=== PATIENT | male | born 1965 | race Caucasian/White ===

== ENCOUNTER 2021-01-29 08:35 | Outpatient (REF) | payer OTHER, SELFPAY ==
[2021-01-29 09:33] LABS: MANUAL DIFF FLAG NO
[2021-01-29 09:37] LABS: Basophils Absolute Auto 0.1 X10*3/uL (0.0-0.2); Basophils Percent Auto 0.6 % (0-2); Eosinophils Absolute Auto 0.1 X10*3/uL (0.0-0.4); Eosinophils Percent Auto 0.6 % (0-4); Hematocrit 43.8 % (42-52); Hemoglobin 14.4 g/dl (14.0-18.0); Imm Gran Abs Auto 0.03 X10*3/uL (0.00-0.03); Imm Gran Pct Auto 0.3 % (0.0-0.4); Lymphocytes Absolute Auto 2.7 X10*3/uL (1.2-4.9); Lymphocytes Percent Auto 28.7 % (20-40); Mean Corpuscular HGB Conc 32.9 g/dl (31.0-36.0); Mean Corpuscular Hemoglobin 31.2 pg (27.0-33.0); Monocytes Absolute Auto 0.5 X10*3/uL (0.1-1.2); Monocytes Percent Auto 5.5 % (2-11); Neutrophils Absolute Auto 6.1 X10*3/uL (2.0-8.3); Neutrophils Percent Auto 64.3 % (45-73); Platelet Count 261 X10*3/uL (160-400); Red Blood Count 4.61 X10*6/uL (4.60-5.80); Red Cell Distribution Width 12.1 % (11.0-16.0); White Blood Count 9.6 X10*3/uL (4.8-10.8)
[2021-01-29 09:58] LABS: Alanine Aminotransferase 12 U/L (0-40); Albumin Level 4.4 g/dL (3.5-5.0); Alkaline Phosphatase 74 U/L (39-117); Anion Gap 12 (12-20); Aspartate Amino Transferase 19 U/L (5-37); Bilirubin Total 0.6 mg/dL (0.0-1.0); Blood Urea Nitrogen 15 mg/dL (9-16); Calcium 9.8 mg/dL (8.4-10.2); Carbon Dioxide 31 mmol/L (22-29); Chloride 101 mmol/L (96-108); Cholesterol 146 mg/dL; Estimated Glomerular Filt Rate > 60; Glucose Fasting 119 mg/dL (60-99); HDL Cholesterol 42 mg/dL; LDL Cholesterol Calculated 93 mg/dl; Potassium 4.4 mmol/L (3.3-5.1); Sodium 140 mmol/L (135-145); Total Protein 7.6 g/dL (6.5-8.0); Triglycerides 59 mg/dL
[2021-01-29 10:18] LABS: Thyroid Stimulating Hormone 0.88 uIU/mL (0.32-4.0)
== END 2021-01-29 08:36 | disposition home or self-care (01) ==
LOC: HO.LAB 08:35
PROVIDERS: PCP Internal Medicine; Visit Provider Internal Medicine
DX: Z00.00 Encounter for general adult medical examination without abnormal findings (principal); E03.9 Hypothyroidism, unspecified; E11.9 Type 2 diabetes mellitus without complications
CPT/HCPCS: 36415; 80053; 80061; 84443; 85025

== ENCOUNTER 2021-01-31 15:33 | Outpatient (REF) | payer OTHER, SELFPAY ==
--- NOTE | ~2021-01-31 | US_ITS ---
EXAMINATION: US SCROTUM CLINICAL INFORMATION: Testicular pain, unspecified. COMPARISON: None TECHNIQUE: A sonogram of the scrotum was performed assessing pendleton-scale appearance and color Doppler flow. Spectral Doppler analysis of the arterial and venous flow were performed in the testes bilaterally. FINDINGS: RIGHT: Right testicle measures 4.1 x 2.3 x 2.9 cm, volume 14.3 mL. No focal testicular parenchymal lesions are visualized. There is a testis epididymis. Spectral Doppler analysis of the arterial and venous flow is normal in the right testis. Right epididymal head is normal in size. There are 2 right epididymal head cysts measuring 4 x 2 x 4 mm and 4 x 2 x 3 mm. There is a small calcification in the epididymal head. No right varicocele is seen. There is a small hydrocele. Right epididymal Doppler flow is normal. LEFT: Left testicle measures 4.2 x 2.9 x 3.0 cm, volume 19.1 mL. No focal testicular parenchymal lesions are visualized. Spectral Doppler analysis of the arterial and venous flow is normal in the left testis. Left epididymal head is normal in size. There is a 2 x 2 x 3 mm epididymal head cyst. There is a small calcification in the tail of the epididymis. There is a small left hydrocele. No left varicocele is seen. Left epididymal Doppler flow is normal. US/US scrotum IMPRESSION: Normal-appearing testicles. Small bilateral epididymal head cysts and small bilateral hydroceles.
== END 2021-01-31 15:34 | disposition home or self-care (01) ==
LOC: HO.US 15:33
PROVIDERS: PCP Internal Medicine; Visit Provider Internal Medicine
DX: N50.819 Testicular pain, unspecified (principal)
CPT/HCPCS: 76870

== ENCOUNTER 2021-06-30 13:49 | Emergency (ER) | payer OTHER, SELFPAY ==
[2021-06-30 14:46] VITALS: BP 133/90; PULSE 72; RESP 18; TEMP 37.1; O2SAT 97; BMI 22.8
== END 2021-06-30 18:10 | disposition left against medical advice (07) ==
LOC: HO.ED 18:06
PROVIDERS: Emergency Provider Emergency Medicine; PCP Internal Medicine
DX: M25.511 Pain in right shoulder (principal); M54.2 Cervicalgia; M54.50 Low back pain, unspecified
CPT/HCPCS: 99281

== ENCOUNTER 2021-07-01 12:56 | Emergency (ER) | payer OTHER, SELFPAY ==
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
[2021-07-01 13:44] VITALS: BP 112/89; PULSE 72; RESP 18; TEMP 36.5; O2SAT 95; BMI 22.8
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
[2021-07-01 18:00] VITALS: BP 134/67; PULSE 67; RESP 16; TEMP 36.6; O2SAT 97
== END 2021-07-01 19:04 | disposition home or self-care (01) ==
PROVIDERS: Emergency Provider Emergency Medicine; PCP Internal Medicine
DX: S22.31XA Fracture of one rib, right side, initial encounter for closed fracture (principal); S13.4XXA Sprain of ligaments of cervical spine, initial encounter; S39.012A Strain of muscle, fascia and tendon of lower back, initial encounter; M54.2 Cervicalgia; V43.52XA Car driver injured in collision with other type car in traffic accident, initial encounter; Y93.9 Activity, unspecified; Y92.410 Unspecified street and highway as the place of occurrence of the external cause; Y99.9 Unspecified external cause status; Z79.899 Other long term (current) drug therapy
CPT/HCPCS: 71111; 72100; 72125; 99284

== ENCOUNTER 2022-05-20 13:56 | Outpatient (REF) | payer OTHER, SELFPAY ==
--- NOTE | ~2022-05-20 | XR_ITS ---
EXAMINATION: XR LUMBOSACRAL SPINE CLINICAL INFORMATION: Dorsalgia COMPARISON: 07/01/2021 TECHNIQUE: Three views of the lumbosacral spine. FINDINGS: Mild dextroscoliosis, unchanged. No fracture or subluxation. Vertebral body heights are maintained. Disc space narrowing at L3-L4. Small endplate osteophytes at the lower lumbar spine with facet arthropathy. The sacroiliac joints are symmetric. The visualized sacrum is intact. Normal bowel gas pattern. XR/XR lumbar spine 2-3V IMPRESSION: Mild degenerative change at the lower lumbar spine with associated scoliotic curvature. Similar appearance to prior.
== END 2022-05-20 13:57 | disposition home or self-care (01) ==
LOC: HO.XRAY 13:56
PROVIDERS: PCP Internal Medicine; Visit Provider Internal Medicine
DX: M54.9 Dorsalgia, unspecified (principal)
CPT/HCPCS: 72100

== ENCOUNTER 2022-10-04 09:47 | Emergency (ER) | payer OTHER, SELFPAY ==
--- NOTE | ~2022-10-04 | XR_ITS ---
EXAMINATION: XR RIBS, LEFT CLINICAL INFORMATION: Fall. COMPARISON: None TECHNIQUE: 3 views of the left ribs were obtained. FINDINGS: The lungs are well-expanded and clear. The heart size and pulmonary vascularity is normal. Multiple views of left ribs reveal no visible fracture or bony abnormality. The soft tissues are normal. XR/XR ribs LT min 3V w CXR1V IMPRESSION: 1. Unremarkable chest exam. 2. Unremarkable left rib exam.
[2022-10-04 09:56] VITALS: BP 188/96; PULSE 85; RESP 18; TEMP 37.2; O2SAT 100; BMI 23.5
[2022-10-04] MEDS: Ketorolac Tromethamine 30 MG/ML VIAL IM (10:53)
--- NOTE | 2022-10-04 11:53 | ED.FALL ---
HPI - Fall General Chief Complaint: Fall Stated Complaint: fall lower back pain Time Seen by Provider: 10/04/22 10:19 Source: patient Mode of arrival: ambulatory History of Present Illness HPI Narrative: 57-year-old male with no significant past medical history presenting to the ED complaining of left side pain s/p mechanical slip and fall in bathroom on 09/24. Reports slipped on urine and fell on buttock/back, denies head trauma or LOC. Denies taking anticoagulation. States pain is been persistent/worsening, worse with movement, palpation, and at night. Denies fever, chills, SOB, CP, abdominal pain, nausea/vomiting, urine incontinence/retention MD complaint: fall Onset (ago): week(s) Fall from: standing Related Data Home Medications Medication Instructions Recorded Confirmed methadone 10 mg/mL oral 115 mg PO DAILY 01/23/21 04/28/22 concentrate (Methadone Intensol) Previous Rx's Medication Instructions Recorded cyclobenzaprine 10 mg tablet 10 mg PO TID PRN muscle spasm #30 04/28/22 tabs methylprednisolone 4 mg tablets in See Rx Instructions PO PER PKG DIR 04/28/22 a dose pack (Medrol (Ronak)) #21 ea ProAir HFA 90 mcg/actuation 2 puff inhalation Q6H PRN 08/20/22 aerosol inhaler (albuterol sulfate) bronchospasm #8.5 grams acetaminophen 500 mg tablet 500 mg PO Q6H PRN fever or pain 10/04/22 (Tylenol Extra Strength) #14 tabs cyclobenzaprine 5 mg tablet 5 mg PO Q8H PRN pain (scale score 10/04/22 7-10) 5 days #14 tabs ketorolac 10 mg tablet 10 mg PO TID PRN pain 5 days #15 10/04/22 tabs lidocaine 5 % topical patch 1 patch topical DAILY PRN pain #30 10/04/22 (Lidoderm) ea Allergies Allergy/AdvReac Type Severity Reaction Status Date / Time No Known Allergies Allergy Verified 04/28/22 11:05 [No Known Allergies*] Review of Systems Review of Systems: Constitutional: No Fever, No Chills ENT/Mouth: No Ear Pain, No Nasal Congestion, No sore throat, No Rhinorrhea, No Swallowing Difficulty Cardiovascular: No Chest Pain, No SOB Respiratory: No Cough, No Sputum, No Wheezing Gastrointestinal: No Nausea, No Vomiting, No Diarrhea, No Constipation, No Abdominal pain Genitourinary: No Dysuria, No Urinary Frequency, No Hematuria, No Urinary Incontinence/retention, No Urgency, No Flank Pain Musculoskeletal: + joint pain, No Myalgias, No Joint Swelling Skin: No Skin Lesions, No rash Neuro: No Weakness, No Numbness, No Paresthesias Yes all other systems are reviewed and are negative Constitutional: Constitutional: Reports as per [facility] Past Medical History Attestation statement: The following information was validated with the patient. Medical History Skin lesion Surgical History History of inguinal hernia repair Family History Family History Father No problems noted. Mother Advanced cardiac disease Dementia in Alzheimer's disease Mental health disorder Social History Social History Housing: Homeless (Lives in a [facility]) Alcohol intake: never Patient Tobacco Use Status: Current everyday Tobacco user Tobacco use type: Cigarette Cigarette Packs Per Day: 5 Cigarettes Per Day: 5 e-Cigarette/Vaping Use: Never Used Second Hand Smoke Exposure: Yes Advance Directives: No Advance Directives Information Provided: No service: No Current occupational status: employed Physical Exam Vital Signs: Vital Signs: Last Vital Signs Temp 98.9 F 10/04/22 09:56 Pulse 56 10/04/22 12:02 Resp 14 10/04/22 12:02 BP 130/82 10/04/22 12:02 Pulse Ox 98 10/04/22 12:02 O2 Del Method 10/04/22 12:02 BMI result Body Mass Index 23.5 Const: General: cooperative, healthy appearing and no acute distress Orientation/consciousness: patient oriented x3 Limitations: no limitations HEENT: Head: Yes normal to inspection and Yes atraumatic Ears: hearing grossly normal bilaterally General nose exam: Normal external nose present Face and sinus: Yes normal facial exam Eyes: General: appearance normal, both eyes and all related structures EOM: EOMs intact bilaterally Neck: Neck: Yes normal visual inspection and Yes no meningeal signs Chest: Other: + tenderness palpation to left posterior lateral chest wall. No evidence of flail chest, no ecchymosis/erythema Chest palpation & inspection: normal inspection of the chest, no crepitus and tenderness Resp: Effort & Inspection: normal respiratory effort and no respiratory distress Auscultation: clear to auscultation bilaterally Cardio: Rate: regular rate Heart sounds: S1 normal heart sound present and S2 normal heart sound present GI: Inspection: Yes normal to inspection Palpation (GI): Soft to palpation, nontender, no guarding and not rigid : General: Yes no CVA tenderness Back/Spine/Pelvis: Other: No midline thoracic/lumbar spinous tenderness/step-off or deformity Back: no CVA tenderness Skin: Rashes: no rashes Wounds: no wounds Neuro: General: patient oriented x3, gait normal, tone normal, moves all extremities, no meningeal signs and no focal motor deficits Gait exam (Neuro): Normal gait present Extrem: General: Yes normal to inspection Course Course Course Narrative: XR ribs LT min 3V w CXR1V IMPRESSION: 1.? Unremarkable chest exam. 2.? Unremarkable left rib exam. Results discussed with patient including worrisome signs and symptoms and strict return precautions, and when to return to the emergency department. They verbalized understanding and feel safe for discharge at this time. Medications Administered Discontinued Medications Generic Name Dose Route Start Last Admin Trade Name Adelfo PRN Reason Stop Dose Admin Ketorolac Tromethamine 30 mg 10/04/22 10:48 10/04/22 10:53 Ketorolac Tromethamine 30 Mg/Ml Vial IM 10/04/22 10:49 30 mg ONCE ONE Administration Lidocaine 1 patch 10/04/22 11:57 10/04/22 12:08 Lidocaine 4 % Patch Adh..Patch TRANSDERMA 10/04/22 11:58 Not Given ONCE ONE Protocol Medical Decision Making Medical Decision Making MDM Narrative: 57-year-old male with no significant past medical history presenting to the ED complaining of left side pain s/p mechanical slip and fall in bathroom on 09/24. On exam vital signs stable, appears uncomfortable, nontoxic appearing, left posterior lateral chest wall tenderness elicited reproducing subjective complaint, no evidence of flail chest. Abdomen soft and nontender. No midline cervical/thoracic/lumbar spinous tenderness. Concern for rib fracture vs contusion. Low suspicion for intra-abdominal injury/bleeding or cord compression/cauda equina Plan: Rib series Please refer to course for remaining clinical decision making, interpretation of labs/imaging results, and discussions with consultants and/or family members. Differential Diagnosis Differential Diagnoses: The differential diagnosis associated with the presentation includes As above Radiology Impression Discussion of test interpretation with radiology: I have reviewed the radiologist's reading. Prescription Management I considered prescription management with: Pain Medication Discharge Plan Discharge Clinical Impression: Rib contusion Patient Disposition: Home, Self-Care Instructions: Rib Contusion (ED) Additional Instructions: Your x-ray does not show fractures. You likely bruised your ribs. Flexeril is a muscle relaxer, take at night as it makes you drowsy, do not drive, drink alcohol, or operate machinery while taking it Toradol as an anti-inflammatory / pain medication, take with food Lidoderm patches are numbing patches, apply to painful area In addition take Tylenol at home If symptoms persist or worsen, pain becomes unbearable, you developed urinary retention or incontinence, or weakness return to the ED Wilson radiograf?a no muestra fracturas. Probablemente te lastimaste las costillas. Flexeril es un relajante muscular, t?cristofer por la noche ya que te adormece, no conduzcas, bebas alcohol ni operes maquinaria mientras lo carola. Toradol skyler antiinflamatorio/medicamento para el dolor, t?guthrie con alimentos Los parches de Lidoderm son parches anest?sicos, se aplican en el ?juhi dolorida Adem?s connie Tylenol en casa Si los s?ntomas persisten o empeoran, el dolor se vuelve insoportable, desarroll? retenci?n urinaria o incontinencia, o debilidad, regrese al servicio de urgencias. Prescriptions: New ketorolac 10 mg tablet 10 mg PO TID PRN (Reason: pain) 5 Days Qty: 15 0RF cyclobenzaprine 5 mg tablet 5 mg PO Q8H PRN (Reason: pain (scale score 7-10)) 5 Days Qty: 14 0RF acetaminophen [Tylenol Extra Strength] 500 mg tablet 500 mg PO Q6H PRN (Reason: fever or pain) Qty: 14 0RF lidocaine [Lidoderm] 5 % adhesive patch,medicated 1 patch topical DAILY MDD remove after 12 hours PRN (Reason: pain) Qty: 30 0RF Rx Instructions: leave on most painful area for up to 12 hrs No Action albuterol sulfate [ProAir HFA] 90 mcg/actuation HFA aerosol inhaler 2 puff inhalation Q6H PRN (Reason: bronchospasm) Qty: 8.5 8RF methadone [Methadone Intensol] 10 mg/mL concentrate 115 mg PO DAILY cyclobenzaprine 10 mg tablet 10 mg PO TID PRN (Reason: muscle spasm) Qty: 30 2RF methylprednisolone [Medrol (Ronak)] 4 mg tablets,dose pack See Rx Instructions PO PER PKG DIR Qty: 21 0RF Rx Instructions: PO PER PKG DIR Referrals: Serafin Pearl MD [Primary Care Provider] - 1 week Stand Alone Forms: Work/School Release Interventions: ED Discharge Assessment Last Done: 10/04/22 12:07 Discharge Date/Time: 10/04/22 12:07 Print Language: Greenlandic
[2022-10-04 12:02] VITALS: BP 130/82; PULSE 56; RESP 14; O2SAT 98
== END 2022-10-04 12:07 | disposition home or self-care (01) ==
PROVIDERS: Emergency Provider Emergency Medicine Emergency Medical Services; PCP Internal Medicine
DX: S20.212A Contusion of left front wall of thorax, initial encounter (principal); W01.0XXA Fall on same level from slipping, tripping and stumbling without subsequent striking against object, initial encounter; F11.20 Opioid dependence, uncomplicated; F17.210 Nicotine dependence, cigarettes, uncomplicated; Y93.89 Activity, other specified; Y92.031 Bathroom in apartment as the place of occurrence of the external cause; Y99.9 Unspecified external cause status
CPT/HCPCS: 71101; 96372; 99283; 99284; J1885

== ENCOUNTER 2022-11-12 15:16 | Outpatient (REF) | payer OTHER, SELFPAY ==
--- NOTE | ~2022-11-12 | XR_ITS ---
EXAMINATION: XR lumbar spine 2-3V CLINICAL INFORMATION: Reason for Exam M54.9 - Dorsalgia, unspecified COMPARISON: Lumbar spine radiographs 05/20/2022 TECHNIQUE: 3 views of the lumbar spine FINDINGS: 5 nonrib-bearing lumbar-type vertebral bodies. Vertebral body heights are maintained. Rightward scoliosis of the lumbar spine. Anterolisthesis of L5 on S1 and retrolisthesis of L4 on L5. Mild multilevel degenerative disc disease with loss of disc space height, facet arthropathy and disc osteophyte complexes. This is worst at L5/S1. Paravertebral soft tissues are unremarkable. XR/XR lumbar spine 2-3V IMPRESSION: 1. Mild spondylosis of the lumbar spine, as above detailed. 2. Spondylolisthesis, as above detailed.
== END 2022-11-12 15:17 | disposition home or self-care (01) ==
LOC: HO.XRAY 15:16
PROVIDERS: PCP Internal Medicine; Visit Provider Internal Medicine
DX: M54.9 Dorsalgia, unspecified (principal)
CPT/HCPCS: 72100

== ENCOUNTER → 2023-02-13 15:11 | Outpatient (BNVA) | payer OTHER, SELFPAY | PROVIDERS: PCP Internal Medicine; Visit Provider Nurse Practitioner Family | DX: M62.830 Muscle spasm of back (principal); M43.17 Spondylolisthesis, lumbosacral region; M54.16 Radiculopathy, lumbar region; M51.36 Other intervertebral disc degeneration, lumbar region | CPT/HCPCS: 99202 ==

== ENCOUNTER 2023-05-08 14:31 | Outpatient (AMB) | payer OTHER, SELFPAY ==
--- NOTE | 2023-05-08 14:35 | MHC.PC.OV ---
Vital Signs 05/08/23 14:36 Height 5 ft 7 in Weight 147 lb 2 oz BMI 23.0 BP 120/74 Blood Pressure Location Lt brachial Position Sitting Pulse 96 Pulse Source Pulse Oximeter Pulse Oximetry (%) 98 Oxygen Delivery Method Room Air Intake Visit Reasons: [facility] 04/07-04/14 Intake Note: Patient is here for hospital discharge follow up. Patient was discharged from [facility] on 04/14/23. Child Support Specialist Required: Yes Child Support Specialist Language: Yakut Information Interpreted: non-clinical & clinical Filament Coil Winder: Present Accompanied by: Spouse Allergies No Known Allergies [No Known Allergies*] Allergy (Verified 05/08/23 14:36) Medication List - Last Reconciled 05/08/23 by Serafin Pearl MD albuterol sulfate 90 mcg/actuation (Ventolin HFA) 2 puffs PO QID PRN cyclobenzaprine 10 mg PO BEDTIME PRN 30 days gabapentin 300 mg PO BEDTIME PRN 30 days methadone (Methadone Intensol) 115 mg PO DAILY naproxen (Naprosyn) 500 mg PO BID PRN Tobacco use date assessed: 05/08/23 Dental Screening Dental Screen Date: 05/08/23 Did you have a dental visit in the last 12 months?: Yes Did you have a dental problem in the last 6 months where you did not have access to dental care?: No Was dental information given to patient?: Patient has dentist HPI [facility] 04/07-04/14 HPI Details admitted with bsack pain; [place] [facility] [place] appt with pain management; on methadone for substance abuse [facility] Medical History Skin lesion Surgical History History of inguinal hernia repair Family History Father No problems noted. Mother Advanced cardiac disease Dementia in Alzheimer's disease Mental health disorder Social History Housing: Homeless (Lives in a half-way) Alcohol intake: never Patient Tobacco Use Status: Current everyday Tobacco user Tobacco use type: Cigarette Cigarettes Per Day: 5 e-Cigarette/Vaping Use: Never Used Second Hand Smoke Exposure: Yes Substance Use Type: Heroin service: No Current occupational status: employed Cognitive needs: No Hearing needs: No Vision needs: No Questionnaire Thrive Questionnaire Date Thrive assessed: 04/25/21 EMANUEL-7 AMB Questionnaire EMANUEL-7 Date EMANUEL - 7 assessed: 10/31/22 Source: Developed by Drs. Rambo Du, Priyanka Madden, Kapil Sandra and colleagues, with an educational lakeisha from [employer]. Review of Systems Const Denies chills, Denies headache(s) and Denies weight loss ENT Denies headache(s) Card Denies chest pain, Denies syncope, Denies irregular heart rhythm and Denies dyspnea Resp Denies chest congestion, Denies cough and Denies dyspnea GI Denies abdominal pain, Denies change in stool character, Denies nausea and Denies vomiting Musc Denies deformity and Denies joint swelling Neuro Denies syncope and Denies headache(s) Physical exam (Primary Care) Vital Signs: Last Vital Signs Pulse 96 05/08/23 14:36 BP 120/74 05/08/23 14:36 Pulse Ox 98 05/08/23 14:36 Oxygen Delivery Method Room Air 05/08/23 14:36 BMI result Body Mass Index 23.0 Tobacco/Smoking Status: Tobacco use Status Tobacco use date assessed 05/08/23 05/08/23 14:43 Patient Tobacco Use Status Current everyday Tobacco 05/08/23 14:43 Tobacco use type Cigarette 05/08/23 14:43 e-Cigarette/Vaping Use Never Used 05/08/23 14:43 Thrive Assessment: Date of Thrive Assessment Date Thrive assessed 04/25/21 05/08/23 14:43 Const General: cooperative and anxious Resp Effort & Inspection: normal respiratory effort Auscultation: clear to auscultation bilaterally Percussion: percussion normal Cardio Jugular venous distension: no JVD Rate: regular rate Rhythm: regular rhythm GI Inspection: Yes normal to inspection Assessment and Plan Assessment & Plan (1) Low back pain: Code(s): M54.50 - Low back pain, unspecified Plan: f/u with pain management Medications: Refilled naproxen (Naprosyn) 500 mg PO BID PRN 60 tabs 0RF pain albuterol sulfate 90 mcg/actuation (Ventolin HFA) 2 puffs PO QID PRN 18 ea 2RF shortness of breath or wheezing cyclobenzaprine 10 mg PO BEDTIME PRN 30 tabs 3RF for muscle spasm 30 days M43.17 - Spondylolisthesis, lumbosacral region, M51.36 - Other intervertebral disc degeneration, lumbar region, M54.16 - Radiculopathy, lumbar region, M62.830 - Muscle spasm of back Coding Level of Care Code Est Pt Level 3 (59728) Diagnoses Low back pain M54.50
[2023-05-08 14:36] VITALS: BP 120/74; PULSE 96; O2SAT 98; BMI 23.0
== END 2023-05-08 14:53 | disposition home or self-care (01) ==
PROVIDERS: PCP Internal Medicine; Visit Provider Internal Medicine
DX: M54.50 Low back pain, unspecified (principal)
CPT/HCPCS: 99213

== ENCOUNTER 2023-05-19 13:11 | Outpatient (AMB) | payer OTHER, SELFPAY ==
--- NOTE | 2023-05-19 13:20 | A.OFFVIS_ITS ---
Intake Vital Signs 05/19/23 13:24 Height 5 ft 7 in Weight 141 lb 2 oz BMI 22.1 BP 135/74 Blood Pressure Location Rt brachial Position Sitting Pulse 82 Pulse Source Pulse Oximeter Pulse Oximetry (%) 96 Oxygen Delivery Method Room Air Intake Visit Reasons: Follow Up/Low Back Pain Intake Note: Pain today 01/05 License Issuer Required: No Accompanied by: Unknown Allergies No Known Allergies [No Known Allergies*] Allergy (Verified 05/19/23 13:25) HPI HPI Comments History of Present Illness Details Patient presents today for follow up for worsening low back pain and right sided radiculopathy. He was initially seen in our office in January with pending lumbar spine MRI order which was not completed at that time. Patient reports he [place] [facility] [place] for severe back pain, right leg pain and weakness, lumbar radiculopathy and opioid dependence. 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 He was di scharged home on 04/14/2023 this home PT. During his hospitalization, he underwent lumbar spine MRI with concern for discitis, osteomyelitis however clinically seemed unlikely [place] [facility] [place]. Patient does have medical history of IV drug use who is also on methadone, tobacco use, and hepatitis-C. He reports partial pain alleviation of his gabapentin, ibuprofen in short script of oxycodone. He continues to experience right leg pain and weakness with walking or bending. We will proceed his neurosurgical evaluation. Denies any fever, weight loss, abdominal or groin pain, bladder or bowel incontinence or saddle anesthesia. PRIOR: Patient is a pleasant 57 years old male presents today lower back that has been worsening since status post mechanical slip and fall in bathroom on 09/24. Patient was [place] [facility] [place] for left sided rib contusion with normal imaging. He reports falling on his buttock and back but denies hitting his head or loss of consciousness. 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 His back is axial, spreads across lower back and into right buttock with radiation in to right lower extremity posteriorly. Reports conservative treatments as noted below were minimally effective. He has not done physical therapy and denies any previous injections or back surgeries. Pain affects his daily functioning, ADLs, sleep, mobility and quality of life. He is on methadone maintaince program. Patient is interested to undergo interventional treatments to alleviate his right sided sciatica pain. Denies any fever, abdominal or groin pain, chest and abdominal wall pain, bladder or bowel incontinence or saddle anesthesia. Ambulates with slow antalgic gait without assisting devices. Onset 09/24/22 Location Low back pain radiates to right buttock and RLE posterioly Duration Chronic back pain but worsened since fall on 09/24/22 Characteristics of symptom or complaint Aching, stabbing, sharp, tingling, shooting, tiring, exhausting, cramping Aggravating or associated factors Walking, prolonged sitting, standing, changing positions, bending down Relieving factors Methadone, Naprosyn, cyclobenzaprine, ketorolac, lidocaine, Medrol Treatment Home exercise program: stretching exercises and rides bicycle [facility] Medical History Skin lesion Surgical History History of inguinal hernia repair Family History Father No problems noted. Mother Advanced cardiac disease Dementia in Alzheimer's disease Mental health disorder Social History Housing: Homeless (Lives in a halfway) Alcohol intake: never Patient Tobacco Use Status: Current everyday Tobacco user Tobacco use type: Cigarette Cigarettes Per Day: 5 e-Cigarette/Vaping Use: Never Used Second Hand Smoke Exposure: Yes Substance Use Type: Heroin service: No Current occupational status: employed Cognitive needs: No Hearing needs: No Vision needs: No Review of Systems Const All systems reviewed & are unremarkable except as noted in HPI and below Physical Exam Vital Signs: Last Vital Signs Pulse 82 05/19/23 13:24 BP 135/74 05/19/23 13:24 Pulse Ox 96 05/19/23 13:24 Oxygen Delivery Method Room Air 05/19/23 13:24 BMI result Body Mass Index 22.1 General: Appears afebrile. Alert and oriented. Mood and affect appropriate. Follows and participates in conversation appropriately. Respiratory effort is unlabored. No cough. Able to transition from sit to stand unassisted. Back/Spine/Pelvis Other: Patient is able to walk and stand on heels and tip toes with difficulty on the right due to pain and weakness. Slow antalgic gait with limping. Limited lumbar ROMdue to increase pain with flexion or bending. Demonstrates 5/5 left and 4/5 right strength of quadriceps bilaterally as well as flexion/dorsiflexion of bilateral feet against resistance. 2+ pedal pulses bilaterally. Seated straight leg rise with dorsiflexion positive on the right. Diminished patellar and trace achilles reflexes bilaterally. Facet loading test positive bilaterally. Jaun sign positive. Unable to proceed with exam due to exacerbation of pain. Valsalva maneuver negative. Back: back tenderness Cervical Spine: cervical ROM normal and No Cervical spine tenderness Thoracic/Lumbar Spine: thoracic and lumbar spine normal to inspection, No Thoracic/lumbar spine scar(s), Lasegue's sign positive on the right and localized, pain with thoraco-lumbar ROM, paraspinal muscle tenderness, thoraco- lumbar ROM limited, No thoracic spinal tenderness and lumbar spinal tenderness at L4 and at L5 Pelvis: buttock tenderness on the right and sciatic notch tenderness on the right Results Reviewed Results Reviewed: Assessment & Plan Assessment & Plan (1) Muscle spasm of back: Code(s): M62.830 - Muscle spasm of back (2) Spondylolisthesis, lumbosacral region: Code(s): M43.17 - Spondylolisthesis, lumbosacral region (3) Lumbar degenerative disc disease: Code(s): M51.36 - Other intervertebral disc degeneration, lumbar region (4) Lumbar radiculopathy, right: Code(s): M54.16 - Radiculopathy, lumbar region (5) Neuroforaminal stenosis of lumbosacral spine: Code(s): M48.07 - Spinal stenosis, lumbosacral region Plan Lumbar spine MRI results reviewed with patient and his family. [place] [facility] [place] and [place] summary reviewed. Patient participated in home PT but reports increase in his back and right leg symptoms with PT or HEP. Neurosurgical Referral for spinal stenosis related pain with discogenic and facetogenic pain components. Continue gabapentin and NSAIDs with precaution and continue to monitor for any side effects. Patient on methadone 115 mg daily for prior history of opioid dependence and IV drug use. Patient is aware to call if pain worsens or if she develops any red flag symptoms to seek emergency care. Patient denies any cauda equina syndrome symptoms at this time. All questions and concerns have been answered and patient agreed with the plan. Follow up as needed. Orders: Referrals Neurosurgery Referral M48.07 - Spinal stenosis, lumbosacral region, M54.16 - Radiculopathy, lumbar region Medications: Changed From gabapentin 300 mg PO BEDTIME 30 days PRN 30 caps 0RF pain M43.17 - Spondylolisthesis, lumbosacral region, M51.36 - Other intervertebral disc degeneration, lumbar region, M54.16 - Radiculopathy, lumbar region To gabapentin 300 mg PO TID 30 days PRN 90 caps 0RF pain M43.17 - Spondylolisthesis, lumbosacral region, M51.36 - Other intervertebral disc degeneration, lumbar region, M54.16 - Radiculopathy, lumbar region Refilled cyclobenzaprine 10 mg PO BEDTIME 30 days PRN 30 tabs 3RF for muscle spasm M43.17 - Spondylolisthesis, lumbosacral region, M51.36 - Other intervertebral disc degeneration, lumbar region, M54.16 - Radiculopathy, lumbar region, M62.830 - Muscle spasm of back Coding Level of Care Code Est Pt Level 4 (57374) Diagnoses Muscle spasm of back M62.830 Spondylolisthesis, lumbosacral region M43.17 Lumbar degenerative disc disease M51.36 Lumbar radiculopathy, right M54.16 Neuroforaminal stenosis of lumbosacral spine M48.07
[2023-05-19 13:24] VITALS: BP 135/74; PULSE 82; O2SAT 96; BMI 22.1
== END 2023-05-19 13:38 | disposition home or self-care (01) ==
PROVIDERS: PCP Internal Medicine; Visit Provider Nurse Practitioner Family
DX: M62.830 Muscle spasm of back (principal); M43.17 Spondylolisthesis, lumbosacral region; M51.36 Other intervertebral disc degeneration, lumbar region; M54.16 Radiculopathy, lumbar region; M48.07 Spinal stenosis, lumbosacral region
CPT/HCPCS: 99214

== ENCOUNTER → 2023-05-19 13:11 | Outpatient (BNVA) | payer OTHER, SELFPAY | PROVIDERS: PCP Internal Medicine; Visit Provider Nurse Practitioner Family | DX: M62.830 Muscle spasm of back (principal); M43.17 Spondylolisthesis, lumbosacral region; M51.36 Other intervertebral disc degeneration, lumbar region; M54.16 Radiculopathy, lumbar region; M48.07 Spinal stenosis, lumbosacral region | CPT/HCPCS: 99212 ==

== ENCOUNTER 2023-05-29 13:20 | Outpatient (AMB) | payer OTHER, SELFPAY ==
--- NOTE | 2023-05-29 13:37 | HO.SPINEOV ---
Intake Intake Visit Reasons: radiculopathy Intake Note: Mr. Garcia is here today c/o low back pain. MRI @ [facility]/brought disc. 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 He presents with a chief complaint of low back pain with right-sided radiation of symptoms. He states the pain radiates down the posterior aspect of his right buttocks to the backside of his knee. He reports that the inciting incident was a slip and fall in bathroom on 09/24/23 during which he landed on his buttocks. He recently was hospitalized at [facility] on 04/08/23 for severe back pain, right leg pain and weakness, lumbar radiculopathy and opioid dependence per pain management documentation. They admitted him into the hospital and gave him empiric antibiotic therapy for suspected osteomyelitis per his report. He states they are able to rule out osteomyelitis/infection and discharged him shortly thereafter. He does endorse that post hospital admission he has felt much better and has had days where he has little to no pain followed by days where he has significant pain in his posterior right leg. He reports that he previously has tried several different [id number] remedies including Tylenol, ibuprofen, ice, heat, and pain patches without resolution of symptoms. He reports that rest and lying down helps alleviate his symptoms. PMH: Asthma, Hx opioid use disorder on [facility] maintenence. Social hx: Smokes 1ppd, Hx opioid use disorder currently on Methadone 115mg. Currently homeless. Medications: Albuterol, cyclobenzaprine, gabapentin, methadone, naproxen. Allergies: NKDA. Physical exam: Sensation: Grossly intact. CN: II-XII grossly intact. Strength Testing Upper Extremities: - Deltoid 5/5 right 5/5 left - Biceps 5/5 right 5/5 left - Triceps 5/5 right 5/5 left - Wrist Ext 5/5 right 5/5 left - Wrist Flex 5/5 right 5/5 left - Hand nuclear reactor technician 5/5 right 5/5 left - Interossei 5/5 right 5/5 left Strength Testing Lower Extremities: - Hip flexion 5/5 right 5/5 left - Knee extension 5/5 right 5/5 left - Dorsiflexion 5/5 right 5/5 left - Plantar flex 5/5 right 5/5 left - EHL 5/5 right 5/5 left Reflexes: - Biceps Right - 2+ Left - 2+ - Triceps Right - 2+ Left - 2+ - Patellar Right - 2+ Left - 2+ - Achilles Right - 2+ Left - 2+ - Plantar Right - 2+ Left - 2+ (-) Baca?s sign (-) Clonus (-) Straight leg raise bilaterally Imaging review: MRI performed at [facility] in March showed some mild posterior disc bulge at the levels of L3-4, L4-5, and L5-S1, with minimal nerve root impingement. The MRI read states that there is significant right-sided L5 nerve root impingement which was difficult to verify when reviewing the MRI. There is significant artifact noted on the axial T2 at this level. No significant hyperintensity or signs of infection noted. Impression: The patient is a 57-year-old male who comes in with a chief complaint of low back pain with radiation of symptoms down the posterior right leg. He states that the pain began acutely after slipping/falling in his mother's bathroom hitting his back on the toilet back in August of last year. He reports that his symptoms were moderate to severe for the 1st few months, but have recently significantly lessened. His clinical history is most likely correlated with an acute disc herniation back in August of last year, which has began to resorb. This would explain the significant symptomology early on, with the radicular pain, and also would support the resolution of symptoms the disc begins resorb. Because he is able to accomplish his ADLs, ambulates well, has no strength limitations, and has days where he has little symptoms at all per his report I would suggest that he continue to utilize conservative therapies at this time. He asked if he is eligible for physical therapy, and we told him that he is. This would also be a beneficial adjunct to what he is currently receiving and I would strongly suggest this to pain management, but will leave it up to them to decide if they would like to order it or not based on what treatments he is already undergoing. Thank you for allowing us to care for your patient. The total time spent with this visit with this patient was 45 minutes reviewing history, physical exam, MRI lumbar spine imaging review, and implementation of treatment plan or further diagnostic testing Romario Fraire MD,PhD [facility] Coding Level of Care Code New Pt Level 4 (20752) Diagnoses Lumbar radiculopathy, right M54.16
== END 2023-05-29 14:12 | disposition home or self-care (01) ==
PROVIDERS: PCP Internal Medicine; Referring Provider Nurse Practitioner Family; Visit Provider Physician Assistant
DX: M54.16 Radiculopathy, lumbar region (principal)
CPT/HCPCS: 99204

== ENCOUNTER → 2023-05-29 13:20 | Outpatient (BNVA) | payer OTHER, SELFPAY | PROVIDERS: PCP Internal Medicine; Visit Provider Physician Assistant | DX: M54.16 Radiculopathy, lumbar region (principal) | CPT/HCPCS: 99202 ==

== ENCOUNTER 2024-01-29 10:03 | Outpatient (AMB) | payer OTHER, SELFPAY ==
[2024-01-29 10:04] VITALS: BP 136/74; PULSE 78; O2SAT 97; BMI 21.9
--- NOTE | 2024-01-29 10:04 | MHC.PC.OV ---
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 Allergies No Known Allergies [No Known Allergies*] Allergy (Verified 01/29/24 10:07) Medication List - Last Reconciled 01/29/24 by Serafin Pearl MD albuterol sulfate 90 mcg/actuation (Ventolin HFA) 2 puffs PO QID PRN cyclobenzaprine 10 mg PO BEDTIME PRN 30 days gabapentin 300 mg PO TID PRN 30 days methadone (Methadone Intensol) 115 mg PO DAILY naproxen (Naprosyn) 500 mg PO BID PRN Tobacco use date assessed: 01/29/24 Dental Screening Dental Screen Date: 05/08/23 HPI Rash in body HPI Details rash on fingers consistent with hand dermatitis PFSH Medical History Skin lesion Surgical History History of inguinal hernia repair Family History Father No problems noted. Mother Advanced cardiac disease Dementia in Alzheimer's disease Mental health disorder Social History Housing: Homeless Alcohol intake: never Patient Tobacco Use Status: Current everyday Tobacco user Tobacco use type: Cigarette Cigarettes Per Day: 5 e-Cigarette/Vaping Use: Never Used Second Hand Smoke Exposure: Yes Substance Use Type: Heroin service: No Current occupational status: employed Cognitive needs: No Hearing needs: No Vision needs: No Questionnaire Thrive Questionnaire Date Thrive assessed: 04/25/21 AUDIT C Alcohol Use Questionnaire (AUDIT-C) 1. How often do you have a drink containing alcohol?: Never 3. How often do you have six or more drinks on one occasion?: Never Total Score: 0 Score Reviewed/Action Taken: Yes EMANUEL-7 AMB Questionnaire EMANUEL-7 Date EMANUEL - 7 assessed: 01/29/24 Source: Developed by Drs. Rambo Du, Priyanka Madden, Kapil Sandra and colleagues, with an educational lakeisha from [employer]. Review of Systems Const Denies chills, Denies headache(s) and Denies weight loss ENT Denies headache(s) Card Denies chest pain, Denies syncope, Denies irregular heart rhythm and Denies dyspnea Resp Denies chest congestion, Denies cough and Denies dyspnea GI Denies abdominal pain, Denies change in stool character, Denies nausea and Denies vomiting Musc Denies deformity and Denies joint swelling Neuro Denies syncope and Denies headache(s) Physical exam (Primary Care) Vital Signs: Last Vital Signs Pulse 78 01/29/24 10:04 BP 136/74 01/29/24 10:04 Pulse Ox 97 01/29/24 10:04 Oxygen Delivery Method Room Air 01/29/24 10:04 BMI result Body Mass Index 21.9 Tobacco/Smoking Status: Tobacco use Status Tobacco use date assessed 01/29/24 01/29/24 10:09 Patient Tobacco Use Status Current everyday Tobacco 01/29/24 10:09 Tobacco use type Cigarette 01/29/24 10:09 e-Cigarette/Vaping Use Never Used 01/29/24 10:09 Thrive Assessment: Date of Thrive Assessment Date Thrive assessed 04/25/21 01/29/24 10:09 Const General: cooperative, comfortable, no acute distress and alert Neck Neck: Yes no lymphadenopathy Thyroid: Thyroid normal Resp Effort & Inspection: normal respiratory effort Auscultation: clear to auscultation bilaterally Percussion: percussion normal Cardio Jugular venous distension: no JVD Palpation: normal PMI Rate: regular rate Rhythm: regular rhythm Heart sounds: S1 normal heart sound present and S2 normal heart sound present GI Inspection: Yes normal to inspection Palpation (GI): No hepatosplenomegaly present Skin Other: hand dermatitis Extrem General: Yes no clubbing, cyanosis or edema Assessment and Plan Assessment & Plan (1) Dermatitis: Code(s): L30.9 - Dermatitis, unspecified Plan: rx sent Medications: New triamcinolone acetonide 0.5% 1 appl topical TID 15 grams 3RF Coding Level of Care Code Est Pt Level 3 (81484) Diagnoses Dermatitis L30.9
== END 2024-01-29 10:19 | disposition home or self-care (01) ==
PROVIDERS: PCP Internal Medicine; Visit Provider Internal Medicine
DX: L30.9 Dermatitis, unspecified (principal)
CPT/HCPCS: 99213

== ENCOUNTER 2024-02-03 10:32 | Outpatient (AMB) | payer OTHER, SELFPAY ==
[2024-02-03 10:49] VITALS: BP 130/72; PULSE 86; O2SAT 97; BMI 22.6
--- NOTE | 2024-02-03 10:49 | MHC.PC.OV ---
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 per policy Accompanied by: Self / Same As Patient Allergies No Known Allergies [No Known Allergies*] Allergy (Verified 02/03/24 10:49) Medication List - Last Reconciled 02/04/24 by Serafin Pearl MD albuterol sulfate 90 mcg/actuation (Ventolin HFA) 2 puffs PO QID PRN cyclobenzaprine 10 mg PO BEDTIME PRN 30 days gabapentin 300 mg PO TID PRN 30 days methadone (Methadone Intensol) 115 mg PO DAILY naproxen (Naprosyn) 500 mg PO BID PRN triamcinolone acetonide 0.5% 1 appl topical TID Tobacco use date assessed: 01/29/24 Dental Screening Dental Screen Date: 02/03/24 Did you have a dental visit in the last 12 months?: Yes Did you have a dental problem in the last 6 months where you did not have access to dental care?: No Was dental information given to patient?: Patient has dentist HPI Cut Head HPI Details fell 2 days ago and sustained cut on forehead which did not require sutures; has ster-strip in place [facility] Medical History Skin lesion Surgical History History of inguinal hernia repair Family History Father No problems noted. Mother Advanced cardiac disease Dementia in Alzheimer's disease Mental health disorder Social History Housing: Homeless Alcohol intake: never Patient Tobacco Use Status: Current everyday Tobacco user Tobacco use type: Cigarette Cigarettes Per Day: 5 e-Cigarette/Vaping Use: Never Used Second Hand Smoke Exposure: Yes Substance Use Type: Heroin service: No Current occupational status: employed Cognitive needs: No Hearing needs: No Vision needs: No Questionnaire Thrive Questionnaire Date Thrive assessed: 02/03/24 I am a: Patient What is your living situation today?: I have a steady place to live Within the past 12 months, did the food you bought not last and you didn't have the money to get more?: Never true Within the past 12 months, did you worry whether your food would run out before you got money to buy more?: Never true Do you have trouble paying for medicines?: No Do you have trouble getting transportation to medical appointments?: No Do you have trouble paying your heating and electricity bill?: No Do you have trouble taking care of your child, family member or friend?: No Do you have trouble with day-to-day activities such as bathing, preparing meals, shopping, managing finances, etc.?: No Are you currently unemployed and looking for a job?: No Are you interested in more education?: No Please select the resources that you would like help with: None THRIVE Score: 0 AUDIT C Alcohol Use Questionnaire (AUDIT-C) 1. How often do you have a drink containing alcohol?: Never 3. How often do you have six or more drinks on one occasion?: Never Total Score: 0 Score Reviewed/Action Taken: Yes EMANUEL-7 AMB Questionnaire EMANUEL-7 Date EMANUEL - 7 assessed: 01/29/24 Source: Developed by Drs. Rambo Du, Priyanka Madden, Kapil Sandra and colleagues, with an educational lakeisha from [employer]. Review of Systems Const Denies chills, Denies headache(s) and Denies weight loss ENT Denies headache(s) Card Denies chest pain, Denies syncope, Denies irregular heart rhythm and Denies dyspnea Resp Denies chest congestion, Denies cough and Denies dyspnea GI Denies abdominal pain, Denies change in stool character, Denies nausea and Denies vomiting Musc Denies deformity and Denies joint swelling Neuro Denies syncope and Denies headache(s) Physical exam (Primary Care) Vital Signs: Last Vital Signs Pulse 86 02/03/24 10:49 BP 130/72 02/03/24 10:49 Pulse Ox 97 02/03/24 10:49 Oxygen Delivery Method Room Air 02/03/24 10:49 BMI result Body Mass Index 22.6 Tobacco/Smoking Status: Tobacco use Status Tobacco use date assessed 01/29/24 02/03/24 10:50 Patient Tobacco Use Status Current everyday Tobacco 02/03/24 10:50 Tobacco use type Cigarette 02/03/24 10:50 e-Cigarette/Vaping Use Never Used 02/03/24 10:50 Thrive Assessment: Date of Thrive Assessment Date Thrive assessed 02/03/24 02/03/24 10:50 Const General: cooperative, comfortable, no acute distress and alert Neck Neck: Yes no lymphadenopathy Thyroid: Thyroid normal Resp Effort & Inspection: normal respiratory effort Auscultation: clear to auscultation bilaterally Percussion: percussion normal Cardio Jugular venous distension: no JVD Palpation: normal PMI Rate: regular rate Rhythm: regular rhythm Heart sounds: S1 normal heart sound present and S2 normal heart sound present GI Inspection: Yes normal to inspection Palpation (GI): No hepatosplenomegaly present Skin Other: 2 cm cut on forehead; clean and not infected Extrem General: Yes no clubbing, cyanosis or edema Assessment and Plan Assessment & Plan (1) Cut of forehead: Code(s): S01.81XA - Laceration without foreign body of other part of head, initial encounter Plan: cont current rx Coding Level of Care Code Est Pt Level 3 (31662) Diagnoses Cut of forehead S01.81XA
== END 2024-02-03 11:06 | disposition home or self-care (01) ==
PROVIDERS: PCP Internal Medicine; Visit Provider Internal Medicine
DX: S01.81XA Laceration without foreign body of other part of head, initial encounter (principal)
CPT/HCPCS: 99213

== ENCOUNTER 2024-05-24 12:32 | Outpatient (AMB) | payer OTHER, SELFPAY ==
--- NOTE | 2024-05-24 12:44 | MHC.PC.OV ---
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 Allergies No Known Allergies [No Known Allergies*] Allergy (Verified 05/24/24 12:46) Medication List - Last Reconciled 05/25/24 by Serafin Pearl MD albuterol sulfate 90 mcg/actuation (Ventolin HFA) 2 puffs PO QID PRN cyclobenzaprine 10 mg PO BEDTIME PRN 30 days gabapentin 300 mg PO TID PRN 30 days methadone (Methadone Intensol) 115 mg PO DAILY naproxen (Naprosyn) 500 mg PO BID PRN triamcinolone acetonide 0.5% 1 appl topical TID [tub seat As directed] [walker As directed] Tobacco use date assessed: 01/29/24 Dental Screening Dental Screen Date: 02/03/24 HPI follow up HPI Details has lumbar dis disease with radiculopathy; difficulty walking due to pain PFSH Medical History Skin lesion Surgical History History of inguinal hernia repair Family History Father No problems noted. Mother Advanced cardiac disease Dementia in Alzheimer's disease Mental health disorder Social History Housing: Homeless Alcohol intake: never Patient Tobacco Use Status: Current everyday Tobacco user Tobacco use type: Cigarette Cigarettes Per Day: 5 e-Cigarette/Vaping Use: Never Used Second Hand Smoke Exposure: Yes Substance Use Type: Heroin service: No Current occupational status: employed Cognitive needs: No Hearing needs: No Vision needs: No Questionnaire PHQ-9 Over the last 2 weeks, how often have you been bothered by any of the following problems? 1. Little interest or pleasure in doing things: nearly every day 2. Feeling down, depressed, or hopeless: nearly every day 3. Trouble falling or staying asleep, or sleeping too much: nearly every day 4. Feeling tired or having little energy: nearly every day 5. Poor appetite or overeating: nearly every day 6. Feeling bad about yourself - or that you are a failure or have let yourself or your family down: nearly every day 7. Trouble concentrating on things, such as reading the newspaper or watching television: nearly every day 8. Moving or speaking so slowly that other people could have noticed. Or the opposite - being so fidgety or restless that you have been moving around a lot more than usual: nearly every day 9. Thoughts that you would be better off or of hurting yourself in some way: not at all Total score: 24 Source: Developed by Drs. Rambo Du, Priyanka Madden, Kapil Sandra and colleagues, with an educational lakeisha from [employer]. Thrive Questionnaire Date Thrive assessed: 02/03/24 AUDIT C Alcohol Use Questionnaire (AUDIT-C) 1. How often do you have a drink containing alcohol?: Never 3. How often do you have six or more drinks on one occasion?: Never Total Score: 0 Score Reviewed/Action Taken: Yes EMANUEL-7 AMB Questionnaire EMANUEL-7 Date EMANUEL - 7 assessed: 01/29/24 Source: Developed by Drs. Rambo Du, Priyanka Madden, Kapil Sandra and colleagues, with an educational lakeisha from [employer]. Review of Systems Const Denies chills, Denies headache(s) and Denies weight loss ENT Denies headache(s) Card Denies chest pain, Denies syncope, Denies irregular heart rhythm and Denies dyspnea Resp Denies chest congestion, Denies cough and Denies dyspnea GI Denies abdominal pain, Denies change in stool character, Denies nausea and Denies vomiting Musc Denies deformity and Denies joint swelling Neuro Denies syncope and Denies headache(s) Physical exam (Primary Care) Vital Signs: Last Vital Signs Pulse 90 05/24/24 12:45 BP 132/78 05/24/24 12:45 Pulse Ox 96 05/24/24 12:45 Oxygen Delivery Method Room Air 05/24/24 12:45 BMI result Body Mass Index 23.3 Tobacco/Smoking Status: Tobacco use Status Tobacco use date assessed 01/29/24 05/24/24 12:48 Patient Tobacco Use Status Current everyday Tobacco 05/24/24 12:48 Tobacco use type Cigarette 05/24/24 12:48 e-Cigarette/Vaping Use Never Used 05/24/24 12:48 PHQ-9: PHQ-9 Score PHQ-9: Total score 05/24/24 12:48 Thrive Assessment: Date of Thrive Assessment Date Thrive assessed 02/03/24 05/24/24 12:48 Const General: cooperative, comfortable, no acute distress and alert Neck Neck: Yes no lymphadenopathy Thyroid: Thyroid normal Resp Effort & Inspection: normal respiratory effort Auscultation: clear to auscultation bilaterally Percussion: percussion normal Cardio Jugular venous distension: no JVD Palpation: normal PMI Rate: regular rate Rhythm: regular rhythm Heart sounds: S1 normal heart sound present and S2 normal heart sound present GI Inspection: Yes normal to inspection Palpation (GI): No hepatosplenomegaly present Skin General skin exam: no rashes or lesions noted Extrem General: Yes no clubbing, cyanosis or edema Assessment and Plan Assessment & Plan (1) Neuroforaminal stenosis of lumbosacral spine: Code(s): M48.07 - Spinal stenosis, lumbosacral region Plan: same rx; as per neurology Medications: Refilled albuterol sulfate 90 mcg/actuation (Ventolin HFA) 2 puffs PO QID PRN 18 ea 2RF shortness of breath or wheezing Coding Level of Care Code Est Pt Level 3 (11534) Diagnoses Neuroforaminal stenosis of lumbosacral spine M48.07
[2024-05-24 12:45] VITALS: BP 132/78; PULSE 90; O2SAT 96; BMI 23.3
== END 2024-05-24 13:24 | disposition home or self-care (01) ==
PROVIDERS: PCP Internal Medicine; Visit Provider Internal Medicine
DX: M48.07 Spinal stenosis, lumbosacral region (principal)
CPT/HCPCS: 99213

== ENCOUNTER 2024-08-22 13:47 | Outpatient (AMB) | payer OTHER, SELFPAY ==
--- NOTE | 2024-08-22 13:48 | A.OFFPC_ITS ---
Vital Signs 08/22/24 13:49 Height 5 ft 7 in Weight 154 lb 2 oz BMI 24.1 BP 130/78 Blood Pressure Location Lt brachial Position Sitting Pulse 78 Pulse Source Pulse Oximeter Pulse Oximetry (%) 98 Oxygen Delivery Method Room Air Intake Visit Reasons: PE Intake Note: Patient is here today for a physical. Pt decline flu shot today. 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 Of Sustainability: Not Required per policy Accompanied by: Self / Same As Patient Allergies No Known Allergies [No Known Allergies*] Allergy (Verified 08/22/24 13:49) Medication List - Last Reconciled 08/23/24 by Serafin Pearl MD albuterol sulfate 90 mcg/actuation (Ventolin HFA) 2 puffs PO QID PRN cyclobenzaprine 10 mg PO BEDTIME PRN 30 days gabapentin 300 mg PO TID PRN 30 days methadone (Methadone Intensol) 115 mg PO DAILY naproxen (Naprosyn) 500 mg PO BID PRN triamcinolone acetonide 0.5% 1 appl topical TID [tub seat As directed] [walker As directed] Tobacco use date assessed: 08/22/24 Dental Screening Dental Screen Date: 02/03/24 HPI PE HPI Details substance abuse on methadone; wants pain pills for back pain; I declined [facility], [facility] Medical History (Updated 08/23/24 @ 08:25 by Serafin Pearl MD) Asthma Skin lesion Surgical History History of inguinal hernia repair Family History Father No problems noted. Mother Advanced cardiac disease Dementia in Alzheimer's disease Mental health disorder Social History Housing: Homeless Alcohol intake: never Patient Tobacco Use Status: Current everyday Tobacco user Tobacco use type: Cigarette Cigarette Packs Per Day: 0.5 Cigarettes Per Day: 5 e-Cigarette/Vaping Use: Never Used Second Hand Smoke Exposure: Yes Substance Use Type: Heroin service: No Current occupational status: employed Cognitive needs: Yes (Cane) Hearing needs: No Vision needs: Yes (Glasses) Questionnaire Thrive Questionnaire Date Thrive assessed: 02/03/24 Are you currently unemployed and looking for a job?: Yes EMANUEL-7 AMB Questionnaire EMANUEL-7 Date EMANUEL - 7 assessed: 01/29/24 Source: Developed by Drs. Rambo Du, Priyanka Madden, Kapil Sandra and colleagues, with an educational lakeisha from [employer]. Review of Systems Const Denies chills, Denies fatigue, Denies headache(s) and Denies weight loss Eyes Denies change in vision, Denies diplopia and Denies eye pain ENT Denies vertigo, Denies dizziness, Denies headache(s) and Denies nasal discharge Card Denies chest pain, Denies rapid heart rate and Denies dyspnea on exertion Resp Denies chest congestion, Denies cough, Denies pain with cough and Denies dyspnea on exertion GI Denies abdominal pain, Denies hematochezia and Denies change in bowel habits Musc Denies myalgias, Denies arthralgias and Denies joint swelling Skin/Breast Denies lesions and Denies unusual bruising Neuro Denies vertigo, Denies dizziness, Denies headache(s) and Denies focal weakness Endo Denies fatigue Physical exam (Primary Care) Vital Signs: Last Vital Signs Pulse 78 08/22/24 13:49 BP 130/78 08/22/24 13:49 Pulse Ox 98 08/22/24 13:49 Oxygen Delivery Method Room Air 08/22/24 13:49 BMI result Body Mass Index 24.1 Tobacco/Smoking Status: Tobacco use Status Tobacco use date assessed 08/22/24 08/22/24 13:56 Patient Tobacco Use Status Current everyday Tobacco 08/22/24 13:56 Tobacco use type Cigarette 08/22/24 13:56 e-Cigarette/Vaping Use Never Used 08/22/24 13:56 Thrive Assessment: Date of Thrive Assessment Date Thrive assessed 02/03/24 08/22/24 13:56 Const General: cooperative, healthy appearing and no acute distress Orientation/consciousness: oriented to person, oriented to place and oriented to time [facility] Head: Yes normal to inspection, Yes normocephalic and Yes atraumatic Mouth: Normal oral and palatal mucosa present and tongue normal Throat: Yes posterior oropharynx normal and Yes uvula midline Eyes General: appearance normal, both eyes and all related structures Neck Neck: Yes normal visual inspection, Yes full ROM and Yes no lymphadenopathy Thyroid: Thyroid normal Carotids: normal carotid upstroke Chest Chest palpation & inspection: normal inspection of the chest Resp Effort & Inspection: normal respiratory effort and able to speak in complete sentences Auscultation: clear to auscultation bilaterally Cardio Jugular venous distension: no JVD Palpation: normal PMI Rate: regular rate Rhythm: regular rhythm Heart sounds: S1 normal heart sound present and S2 normal heart sound present GI Inspection: Yes normal to inspection Palpation (GI): Soft to palpation and No hepatosplenomegaly present Auscultation: normal bowel sounds General: Yes no CVA tenderness Back/Spine/Pelvis Back: no CVA tenderness Skin General skin exam: no rashes or lesions noted Neuro General: oriented to person, oriented to place and oriented to time Extrem General: Yes normal to inspection and Yes full ROM Coding Level of Care Code Est Pt Prev Care 40-64y(67390) Diagnoses Physical exam Z00.00 Asthma J45.909 Assessment & Plan Assessment & Plan (1) Physical exam: Code(s): Z00.00 - Encounter for general adult medical examination without abnormal findings Category: Medical Plan: do labs (2) Asthma: Code(s): J45.909 - Unspecified asthma, uncomplicated Category: Medical Plan: stable; same rx Orders: Orders Lipid Panel 08/22/24 Z13.220 - Encounter for screening for lipoid disorders Comprehensive [place]. Panel Fast 08/22/24 Z13.9 - Encounter for screening, unspecified Thyroid Stimulating Hormone 08/22/24 Z13.29 - Encounter for screening for other suspected endocrine disorder Complete Blood Count Auto Diff 08/22/24 Z13.0 - Encounter for screening for diseases of the blood and blood-forming organs and certain disorders involving the immune mechanism Prostate Specific Antigen Scr 08/22/24 Z00.00 - Encounter for general adult medical examination without abnormal findings Medications: Refilled naproxen (Naprosyn) 500 mg PO BID PRN 60 tabs 0RF pain cyclobenzaprine 10 mg PO BEDTIME PRN 30 tabs 3RF for muscle spasm 30 days M43.17 - Spondylolisthesis, lumbosacral region, M51.36 - Other intervertebral disc degeneration, lumbar region, M54.16 - Radiculopathy, lumbar region, M62.830 - Muscle spasm of back gabapentin 300 mg PO TID PRN 90 caps 0RF pain 30 days M43.17 - Spondylolisthesis, lumbosacral region, M51.36 - Other intervertebral disc degeneration, lumbar region, M54.16 - Radiculopathy, lumbar region
[2024-08-22 13:49] VITALS: BP 130/78; PULSE 78; O2SAT 98; BMI 24.1
== END 2024-08-22 14:06 | disposition home or self-care (01) ==
PROVIDERS: PCP Internal Medicine; Visit Provider Internal Medicine
DX: Z00.00 Encounter for general adult medical examination without abnormal findings (principal); J45.909 Unspecified asthma, uncomplicated

== ENCOUNTER → 2024-08-22 13:47 | Outpatient (BNVA) | payer OTHER, SELFPAY | PROVIDERS: PCP Internal Medicine; Visit Provider Internal Medicine | DX: Z00.00 Encounter for general adult medical examination without abnormal findings (principal); J45.909 Unspecified asthma, uncomplicated; Z79.899 Other long term (current) drug therapy | CPT/HCPCS: 99396 ==

== ENCOUNTER 2024-12-09 09:45 | Outpatient (AMB) | payer OTHER, SELFPAY ==
--- NOTE | 2024-12-09 09:47 | MHC.PC.OV ---
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 Accompanied by: Self / Same As Patient Allergies No Known Allergies [No Known Allergies*] Allergy (Verified 12/09/24 09:52) Medication List - Last Reconciled 12/12/24 by Serafin Pearl MD albuterol sulfate 90 mcg/actuation (Ventolin HFA) 2 puffs PO QID PRN cyclobenzaprine 10 mg PO BEDTIME PRN 30 days gabapentin 300 mg PO TID PRN 30 days methadone (Methadone Intensol) 115 mg PO DAILY naproxen (Naprosyn) 500 mg PO BID PRN triamcinolone acetonide 0.5% 1 appl topical TID [tub seat As directed] [walker As directed] Tobacco use date assessed: 12/09/24 Dental Screening Dental Screen Date: 12/09/24 Did you have a dental visit in the last 12 months?: No Did you have a dental problem in the last 6 months where you did not have access to dental care?: No Was dental information given to patient?: No HPI Lump on Elbow HPI Details asthma stable on rx; goes to methadone clinic [facility] Medical History (Updated 08/23/24 @ 08:25 by Serafin Pearl MD) Asthma Skin lesion Surgical History History of inguinal hernia repair Family History Father No problems noted. Mother Advanced cardiac disease Dementia in Alzheimer's disease Mental health disorder Social History Housing: Homeless Alcohol intake: never Patient Tobacco Use Status: Current everyday Tobacco user Tobacco use type: Cigarette Cigarette Packs Per Day: 0.5 Cigarettes Per Day: 5 e-Cigarette/Vaping Use: Never Used Second Hand Smoke Exposure: Yes Substance Use Type: Heroin service: No Current occupational status: employed Cognitive needs: Yes (Cane) Hearing needs: No Vision needs: Yes (Glasses) Questionnaire PHQ-9 Over the last 2 weeks, how often have you been bothered by any of the following problems? 1. Little interest or pleasure in doing things: several days 2. Feeling down, depressed, or hopeless: several days 3. Trouble falling or staying asleep, or sleeping too much: not at all 4. Feeling tired or having little energy: not at all 5. Poor appetite or overeating: not at all 6. Feeling bad about yourself - or that you are a failure or have let yourself or your family down: not at all 7. Trouble concentrating on things, such as reading the newspaper or watching television: several days 8. Moving or speaking so slowly that other people could have noticed. Or the opposite - being so fidgety or restless that you have been moving around a lot more than usual: several days 9. Thoughts that you would be better off or of hurting yourself in some way: not at all Total score: 4 Source: Developed by Drs. Rambo Du, Priyanka Madden, Kapil Sandra and colleagues, with an educational lakeisha from [employer]. Thrive Questionnaire Date Thrive assessed: 12/09/24 I am a: Patient What is your living situation today?: I have a steady place to live Within the past 12 months, did the food you bought not last and you didn't have the money to get more?: Never true Within the past 12 months, did you worry whether your food would run out before you got money to buy more?: Never true Do you have trouble paying for medicines?: No Do you have trouble getting transportation to medical appointments?: No Do you have trouble paying your heating and electricity bill?: No Do you have trouble taking care of your child, family member or friend?: No Do you have trouble with day-to-day activities such as bathing, preparing meals, shopping, managing finances, etc.?: No Are you currently unemployed and looking for a job?: No Are you interested in more education?: No Currently or been in a relationship where the following occur: No concerns reported THRIVE Score: 0 AUDIT C Alcohol Use Questionnaire (AUDIT-C) 1. How often do you have a drink containing alcohol?: Never 3. How often do you have six or more drinks on one occasion?: Never Total Score: 0 Score Reviewed/Action Taken: Yes EMANUEL-7 AMB Questionnaire EMANUEL-7 Date EMANUEL - 7 assessed: 12/09/24 Feeling nervous, anxious, or on edge: 1 = Several days Not being able to stop or control worryin = Several days Worrying too much about different things: 1 = Several days Trouble relaxin = Not at all Being so restless that it is hard to sit still: 2 = More than half the days Becoming easily annoyed or irritable: 0 = Not at all Feeling afraid as if something awful might happen: 0 = Not at all Total EMANUEL-7 score (0-4 normal; 5-9 mild; 10-14 moderate; 15-21 severe): 5 Source: Developed by Drs. Rambo Du, Priyanka Madden, Kapil Sandra and colleagues, with an educational lakeisha from [employer]. Review of Systems Const Denies chills, Denies headache(s) and Denies weight loss ENT Denies headache(s) Card Denies chest pain, Denies syncope, Denies irregular heart rhythm and Denies dyspnea Resp Denies chest congestion, Denies cough and Denies dyspnea GI Denies abdominal pain, Denies change in stool character, Denies nausea and Denies vomiting Musc Denies deformity and Denies joint swelling Neuro Denies syncope and Denies headache(s) Physical exam (Primary Care) Vital Signs: Last Vital Signs Temp 97.5 F 12/09/24 09:52 Pulse 84 12/09/24 09:52 BP 130/78 12/09/24 09:52 Pulse Ox 97 12/09/24 09:52 Oxygen Delivery Method Room Air 12/09/24 09:52 BMI result Body Mass Index 25.9 Tobacco/Smoking Status: Tobacco use Status Tobacco use date assessed 12/09/24 12/09/24 09:55 Patient Tobacco Use Status Current everyday Tobacco 12/09/24 09:48 Tobacco use type Cigarette 12/09/24 09:48 e-Cigarette/Vaping Use Never Used 12/09/24 09:48 PHQ-9: PHQ-9 Score PHQ-9: Total score 4 12/09/24 10:23 Thrive Assessment: Date of Thrive Assessment Date Thrive assessed 12/09/24 12/09/24 09:55 Currently or been in a relationship where the following occur: No concerns reported Const General: cooperative, comfortable, no acute distress and alert Neck Neck: Yes no lymphadenopathy Thyroid: Thyroid normal Resp Effort & Inspection: normal respiratory effort Auscultation: clear to auscultation bilaterally Percussion: percussion normal Cardio Jugular venous distension: no JVD Palpation: normal PMI Rate: regular rate Rhythm: regular rhythm Heart sounds: S1 normal heart sound present and S2 normal heart sound present GI Inspection: Yes normal to inspection Palpation (GI): No hepatosplenomegaly present Skin General skin exam: no rashes or lesions noted Extrem General: Yes no clubbing, cyanosis or edema Coding Level of Care Code Est Pt Level 3 (74606) Diagnoses Asthma J45.909 Assessment & Plan Assessment & Plan (1) Asthma: Code(s): J45.909 - Unspecified asthma, uncomplicated Category: Medical Plan: stable; same rx Medications: Refilled [walker] As directed 1 ea 0RF M51.36 - Other intervertebral disc degeneration, lumbar region, M54.50 - Low back pain, unspecified, M62.830 - Muscle spasm of back [tub seat] As directed 1 ea 0RF M51.36 - Other intervertebral disc degeneration, lumbar region, M54.16 - Radiculopathy, lumbar region, M54.50 - Low back pain, unspecified
[2024-12-09 09:52] VITALS: BP 130/78; PULSE 84; TEMP 36.4; O2SAT 97; BMI 25.9
== END 2024-12-09 10:36 | disposition home or self-care (01) ==
LOC: HO.HMCH 09:46
PROVIDERS: PCP Internal Medicine; Visit Provider Internal Medicine
DX: J45.909 Unspecified asthma, uncomplicated (principal)

== ENCOUNTER → 2024-12-09 09:45 | Outpatient (BNVA) | payer OTHER, SELFPAY | PROVIDERS: PCP Internal Medicine; Visit Provider Internal Medicine | DX: J45.909 Unspecified asthma, uncomplicated (principal) | CPT/HCPCS: 99212 ==

== ENCOUNTER 2025-01-09 08:25 | Outpatient (REF) | payer OTHER, SELFPAY ==
[2025-01-09 08:45] LABS: MANUAL DIFF FLAG NO
[2025-01-09 09:25] LABS: Basophils Absolute Auto 0.1 X10*3/uL (0.0-0.2); Basophils Percent Auto 0.7 % (0-2); Eosinophils Absolute Auto 0.2 X10*3/uL (0.0-0.4); Eosinophils Percent Auto 2.7 % (0-4); Hematocrit 39.4 % (42.0-52.0); Hemoglobin 13.3 g/dl (14.0-18.0); Imm Gran Abs Auto 0.03 X10*3/uL (0.00-0.03); Imm Gran Pct Auto 0.4 % (0.0-0.4); Lymphocytes Absolute Auto 2.4 X10*3/uL (1.2-4.9); Lymphocytes Percent Auto 34.8 % (20-40); Mean Corpuscular HGB Conc 33.8 g/dl (31.0-36.0); Mean Corpuscular Hemoglobin 31.1 pg (27.0-33.0); Mean Corpuscular Volume 92.1 fL (80.0-98.0); Mean Platelet Volume 9.8 fL (9.4-12.4); Monocytes Absolute Auto 0.8 X10*3/uL (0.1-1.2); Monocytes Percent Auto 11.2 % (2-11); Neutrophils Absolute Auto 3.4 x10*3/uL (2.0-8.3); Neutrophils Percent Auto 50.2 % (45-73); Platelet Count 245 X10*3/uL (160-400); Red Blood Count 4.28 X10*6/uL (4.60-5.80); Red Cell Distribution Width 12.5 % (11.0-16.0); White Blood Count 6.8 X10*3/uL (4.8-10.8)
[2025-01-09 10:17] LABS: Alanine Aminotransferase 25 U/L (0-40); Albumin Level 4.1 g/dL (3.5-5.0); Alkaline Phosphatase 82 U/L (39-117); Anion Gap 10 (12-20); Aspartate Amino Transferase 25 U/L (5-37); Bilirubin Total 0.3 mg/dL (0.0-1.0); Blood Urea Nitrogen 18 mg/dL (9-16); Carbon Dioxide 27 mmol/L (22-29); Chloride 106 mmol/L (96-108); Cholesterol 133 mg/dL (<200); Estimated Glomerular Filt Rate > 60; Glucose Fasting 98 mg/dL (60-99); HDL Cholesterol 33 mg/dL (>40); LDL Cholesterol Calculated 77 mg/dL (<100); Potassium 4.3 mmol/L (3.3-5.1); Sodium 139 mmol/L (135-145); Triglycerides 116 mg/dL (<150)
[2025-01-09 10:21] LABS: Thyroid Stimulating Hormone 1.34 uIU/mL (0.32-4.0)
[2025-01-09 10:41] LABS: Prostate Specific Antigen Scr 0.31 ng/mL (<0.05-4.0)
== END 2025-01-09 08:26 | disposition home or self-care (01) ==
LOC: HO.LAB 08:25
PROVIDERS: PCP Internal Medicine; Visit Provider Internal Medicine
DX: R03.0 Elevated blood-pressure reading, without diagnosis of hypertension (principal); J45.909 Unspecified asthma, uncomplicated; M51.369 Other intervertebral disc degeneration, lumbar region without mention of lumbar back pain or lower extremity pain; M48.07 Spinal stenosis, lumbosacral region; M54.16 Radiculopathy, lumbar region; Z00.00 Encounter for general adult medical examination without abnormal findings; Z13.0 Encounter for screening for diseases of the blood and blood-forming organs and certain disorders involving the immune mechanism; Z13.9 Encounter for screening, unspecified; Z13.29 Encounter for screening for other suspected endocrine disorder; Z13.220 Encounter for screening for lipoid disorders
CPT/HCPCS: 36415; 80053; 80061; 84153; 84443; 85025; 99212

== ENCOUNTER 2025-01-09 09:20 | Outpatient (AMB) | payer OTHER, SELFPAY ==
--- NOTE | 2025-01-09 09:15 | A.OFFPC_ITS ---
Intake Visit Reasons: High BP Intake Note: Patient is here to follow up on High BP. Section Leader Required: No Vamper: Not Required per policy Accompanied by: Self / Same As Patient Allergies No Known Allergies [No Known Allergies*] Allergy (Verified 01/09/25 09:16) Tobacco use date assessed: 01/09/25 Dental Screening Dental Screen Date: 12/09/24 [facility] Medical History (Updated 08/23/24 @ 08:25 by Serafin Pearl MD) Asthma Skin lesion Surgical History History of inguinal hernia repair Family History Father No problems noted. Mother Advanced cardiac disease Dementia in Alzheimer's disease Mental health disorder Social History Housing: Homeless Alcohol intake: never Patient Tobacco Use Status: Current everyday Tobacco user Tobacco use type: Cigarette Cigarette Packs Per Day: 0.5 Cigarettes Per Day: 5 e-Cigarette/Vaping Use: Never Used Second Hand Smoke Exposure: Yes Substance Use Type: Heroin service: No Current occupational status: employed Cognitive needs: Yes (Cane) Hearing needs: No Vision needs: Yes (Glasses) Questionnaire Thrive Questionnaire Date Thrive assessed: 12/09/24 EMANUEL-7 AMB Questionnaire EMANUEL-7 Date EMANUEL - 7 assessed: 12/09/24 Source: Developed by Drs. Rambo Du, Priyanka Madden, Kapil Sandra and colleagues, with an educational lakeisha from [employer]. Physical exam (Primary Care) Tobacco/Smoking Status: Tobacco use Status Tobacco use date assessed 12/09/24 12/09/24 09:55 Patient Tobacco Use Status Current everyday Tobacco 12/09/24 09:48 Tobacco use type Cigarette 12/09/24 09:48 e-Cigarette/Vaping Use Never Used 12/09/24 09:48 Thrive Assessment: Date of Thrive Assessment Date Thrive assessed 12/09/24 12/09/24 09:55 Coding
--- NOTE | 2025-01-09 09:28 | A.OFFPC_ITS ---
Vital Signs 01/09/25 09:30 Height 5 ft 7 in Weight 171 lb 4 oz BMI 26.8 BP 120/80 Blood Pressure Location Lt brachial Position Sitting Pulse 88 Pulse Source Pulse Oximeter Temp 96.9 F Temp Source Temporal Artery Scan Pulse Oximetry (%) 98 Oxygen Delivery Method Room Air Intake Visit Reasons: High BP Intake Note: Patient is here to follow up on High BP. 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: Not Required per policy Accompanied by: Self / Same As Patient Allergies No Known Allergies [No Known Allergies*] Allergy (Verified 01/09/25 09:54) Medication List - Last Reconciled 01/09/25 by Bebe Sandoval PA-C albuterol sulfate 90 mcg/actuation (Ventolin HFA) 2 puffs PO QID PRN cyclobenzaprine 10 mg PO BEDTIME PRN 30 days gabapentin 300 mg PO TID PRN 30 days methadone (Methadone Intensol) 115 mg PO DAILY naproxen (Naprosyn) 500 mg PO BID PRN triamcinolone acetonide 0.5% 1 appl topical TID [tub seat As directed] [walker As directed] Tobacco use date assessed: 01/09/25 Dental Screening Dental Screen Date: 12/09/24 HPI High BP HPI Details 59-year-old male with past medical histo ry of asthma and degenerative disc disease with radiculopathy last seen by Dr. Pearl 11/2024 coming in for follow up on blood pressure. 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 Presenting with hypertension monitoring and management. He reports two emergency room visits due to elevated blood pressure readings of 198/107 accompanied by eye pain and headaches, but these normalize to approximately 119/75 once relaxed. He currently does not use any antihypertensives and requests a prescription for a blood pressure machine for home monitoring. His recent dietary adjustments include reducing bread, soda, and salt, and smoking reduction from one full pack to 2-3 cigarettes daily. Headaches noted only during high blood pressure episodes and improved with current lifestyle modifications. He expressed difficulty truly eliminating caffeinated and salty snacks at his residential facility. [facility] Medical History Asthma Skin lesion Surgical History History of inguinal hernia repair Family History Father No problems noted. Mother Advanced cardiac disease Dementia in Alzheimer's disease Mental health disorder Social History Housing: Homeless Alcohol intake: never Patient Tobacco Use Status: Current everyday Tobacco user Tobacco use type: Cigarette Cigarette Packs Per Day: 0.5 Cigarettes Per Day: 3 e-Cigarette/Vaping Use: Never Used Second Hand Smoke Exposure: Yes Substance Use Type: Heroin service: No Current occupational status: employed Cognitive needs: Yes (Cane) Hearing needs: No Vision needs: Yes (Glasses) Questionnaire Thrive Questionnaire Date Thrive assessed: 12/09/24 EMANUEL-7 AMB Questionnaire EMANUEL-7 Date EMANUEL - 7 assessed: 12/09/24 Source: Developed by Drs. Rambo Du, Priyanka Madden, Kapil Sandra and colleagues, with an educational lakeisha from [employer]. Review of Systems Const Denies body aches, Denies chills, Denies fever(s), Denies headache(s) and Denies poor appetite Eyes Reports no additional complaints ENT Denies dizziness and Denies headache(s) Card Denies chest pain, Denies lightheadedness and Denies dyspnea Resp Denies cough and Denies dyspnea GI Denies abdominal pain, Denies nausea and Denies vomiting Reports no additional complaints Musc Reports no additional complaints and Denies abnormal gait Skin/Breast Reports system reviewed and no additional complaints, except as documented Neuro Denies abnormal gait, Denies dizziness and Denies headache(s) Psych Reports no additional complaints Physical exam (Primary Care) Vital Signs: Last Vital Signs Temp 96.9 F 01/09/25 09:30 Pulse 88 01/09/25 09:30 BP 120/80 01/09/25 09:30 Pulse Ox 98 01/09/25 09:30 Oxygen Delivery Method Room Air 01/09/25 09:30 BMI result Body Mass Index 26.8 Tobacco/Smoking Status: Tobacco use Status Tobacco use date assessed 01/09/25 01/09/25 09:43 Patient Tobacco Use Status Current everyday Tobacco 01/09/25 09:43 Tobacco use type Cigarette 01/09/25 09:43 e-Cigarette/Vaping Use Never Used 01/09/25 09:43 Are you ready to quit: Yes Tobacco cessation counseling provided: Yes Items discussed: Nicotine replacement Relapse Prevention: discussed dietary, exercise and/or lifestyle changes CPT code: Less than 3 minutes Thrive Assessment: Date of Thrive Assessment Date Thrive assessed 12/09/24 01/09/25 09:43 Const General: cooperative, healthy appearing, comfortable and no acute distress Orientation/consciousness: patient oriented x3 HENMT Head: Yes normocephalic Ears: hearing grossly normal bilaterally General nose exam: Normal external nose present Eyes General: appearance normal, both eyes and all related structures Conjunctivae: conjunctivae normal Neck Neck: Yes full ROM and Yes no lymphadenopathy Resp Effort & Inspection: normal respiratory effort Auscultation: clear to auscultation bilaterally, no crackles, no rales, no rhonchi and no wheezes Cardio Rate: regular rate Rhythm: regular rhythm Skin General skin exam: no rashes or lesions noted Neuro General: patient oriented x3 Gait exam (Neuro): Normal gait present Extrem General: Yes normal to inspection, Yes full ROM and No edema Psych Affect: normal affect Attitude: cooperative Insight: Good insight present (Psych) Judgement: Good judgement present (Psych) Coding Level of Care Code Est Pt Level 3 (07841) Diagnoses Elevated blood pressure reading without diagnosis of hypertension R03.0 Asthma J45.909 Lumbar degenerative disc disease M51.36 Assessment & Plan Assessment & Plan (1) Elevated blood pressure reading without diagnosis of hypertension: Code(s): R03.0 - Elevated blood-pressure reading, without diagnosis of hypertension Category: Medical Plan: Advised patient to take blood pressures at home 3-4x per week and bring log to next visit. Avoid salt intake and encourage healthy diet and regular exercise. Limit caffeine intake. Not currently having symptoms of headache, chest pain or shortess of breath and blood pressure is normal on exam today. He will follow up in one month for NASRA appointment and bring log at that time. I reviewed with the patient red flag symptoms and when to present for re-evaluation. (2) Asthma: Code(s): J45.909 - Unspecified asthma, uncomplicated Category: Medical Plan: Asthma currently controlled on present medications. Continue on albuterol as needed.? Avoid triggers such as allergies. patient does mention over the last several days having to use the inhaler more frequently due to allergies. Rx sent for flonase and Radha. (3) Lumbar degenerative disc disease: Code(s): M51.36 - Other intervertebral disc degeneration, lumbar region Category: Medical Plan: Patient having worsening pain of the back, he has seen pain management in the past and advised to follow up with them again. Continue to use the walker and shower chair as needed for pain. Plan I have issued a prescription for a home blood pressure monitor to aid in routine hypertension self-management. The patient was counseled on the importance of lifestyle changes, including dietary modification and smoking cessation, to effectively manage blood pressure. Asthma management remains with current inhaler usage, with stress on monitoring symptoms. Nasal spray and oral medications for allergy management were prescribed to be filled at his designated pharmacy. A referral to pain management specialists was made to address back pain with non-narcotic approaches being preferred. I emphasized keeping a log of his daily blood pressure readings for review in subsequent visits. This note was constructed using voice recognition software. While every effort has been made to ensure accuracy and coating machine helper, still areas may have been included sometimes these areas may affect the content or meeting of the given symptoms. Total time spent caring for the patient today was 20 minutes. This includes time spent before the visit reviewing the chart, time spent during the visit, and time spent after the visit and documentation. Patient was informed and verbally consented to the use of an ambient scribe for clinic note document ation during this visit. Orders: Referrals Pain Management Referral M48.07 - Spinal stenosis, lumbosacral region, M51.36 - Other intervertebral disc degeneration, lumbar region, M54.16 - Radiculopathy, lumbar region Medications: New blood pressure test kit-large As directed once daily 1 ea 0RF fexofenadine (Radha Allergy) 180 mg PO DAILY 90 tabs 0RF fluticasone propionate 50 mcg/actuation (Allergy Relief (fluticasone)) administer into each nostril 1 spray intranasal DAILY 16 grams 2RF
[2025-01-09 09:30] VITALS: BP 120/80; PULSE 88; TEMP 36.1; O2SAT 98; BMI 26.8
== END 2025-01-09 10:25 | disposition home or self-care (01) ==
PROVIDERS: PCP Internal Medicine
DX: R03.0 Elevated blood-pressure reading, without diagnosis of hypertension (principal); J45.909 Unspecified asthma, uncomplicated; M51.369 Other intervertebral disc degeneration, lumbar region without mention of lumbar back pain or lower extremity pain

== ENCOUNTER 2025-01-30 10:23 | Outpatient (AMB) | payer OTHER, SELFPAY ==
--- NOTE | 2025-01-30 10:26 | MHC.OFFVIS ---
Vital Signs 01/30/25 10:33 Height 5 ft 7 in Weight 171 lb 6 oz BMI 26.8 BP 146/87 H Blood Pressure Location Lt brachial Position Sitting Pulse 77 Pulse Source Pulse Oximeter Pulse Oximetry (%) 98 Oxygen Delivery Method Room Air Intake Visit Reasons: Spinal stenosis, lumbosacral region/last seen 2022 Intake Note: Pain today 12/05 Certified Respiratory Therapist Required: Yes Certified Respiratory Therapist Language: Tan Room Supervisor Services: Certified Respiratory Therapist Present Certified Respiratory Therapist Name: Wayne Kyle #[id number] Information Interpreted: non-clinical & clinical Accompanied by: Self / Same As Patient Allergies No Known Allergies [No Known Allergies*] Allergy (Verified 01/30/25 10:34) HPI Comments Details: The patient is a 59-year-old male presenting with worsening back pain with right-sided radiculopathy. He reports experiencing chronic back pain over several years, previously diagnosed as spinal stenosis with a herniated disc. The patient recalls being seen a few years ago for significant spinal stenosis at right L5-S1, which was confirmed by MRI at that time, and associated lumbar pain radiating to the right leg. Denies any symptoms on the left. He reports a history of consultation with a back surgeon, but his pain was not deemed severe enough for surgical intervention. No physical therapy has been undertaken since the initial assessment. The pain reportedly interferes significantly with the patient's daily functioning, including walking and sitting. Specifically, the patient elaborated on occasions when attempting to stand up from bed quickly resulted in episodes of leg weakness and a history of falls. He experiences heightened discomfort when bending forward or attempting physical exertion. Notably, he has had incidents of leg weakness and a need for support when performing activities like driving. The patient has been utilizing ibuprofen and gabapentin for pain management in conjunction with methadone therapy, the latter dosed at 82 mg with a reduction strategy through his Methadone clinic. He reports concern about surgical intervention due to a past incident involving a friend, making him hesitant to pursue surgical options. The conversation also noted a history of lumbar osteomyelitis treated with antibiotics at [facility] in 2022, which resulted in symptomatic relief. To date, he has refused to undergo back injections or surgical procedures and has expressed interest in exploring a spinal cord stimulator as an alternative treatment option. - Onset/Timing: Chronic, persists for several years - Quality/Character: Persistent back pain with radiation to the right leg - Location: Lumbar region with right-sided leg involvement - Exacerbating factors: Bending, sudden movement - Relieving factors: Stretching, rest, activity and position modifications - Functional Interference: Walking, standing, sitting, driving, sleep - Affect: Reports psychological concern and anxiety due to previous friend's surgery outcome - Analgesia: Currently using ibuprofen, gabapentin, reduced methadone dosage at 82 mg - Adverse Effects: No specific side effects reported - Activities of Daily Living: Difficulty standing and walking due to pain, requires aid for driving - Aberrant Drug-Related Behaviors: None reported PRIOR 05/19/23: Patient presents today for follow up for worsening low back pain and right sided radiculopathy. He was initially seen in our office in January with pending lumbar spine MRI order which was not completed at that time. Patient reports he was recently hospitalized at [facility] on 04/08/23 for severe back pain, right leg pain and weakness, lumbar radiculopathy and opioid dependence. Patient reports severe low back pain at that time of admission that he manually had to black pickler and move his right leg due to numbness and weakness. He was discharged home on 04/14/2023 this home PT. During his hospitalization, he underwent lumbar spine MRI with concern for discitis, osteomyelitis however clinically seemed unlikely per [facility] discharge summary. Patient does have medical history of IV drug use who is also on methadone, tobacco use, and hepatitis-C. He reports partial pain alleviation of his gabapentin, ibuprofen in short script of oxycodone. He continues to experience right leg pain and weakness with walking or bending. We will proceed his neurosurgical evaluation. Denies any fever, weight loss, abdominal or groin pain, bladder or bowel incontinence or saddle anesthesia. PRIOR: Patient is a pleasant 57 years old male presents today lower back that has been worsening since status post mechanical slip and fall in bathroom on 09/24. Patient was evaluated at [facility] after fall for left sided rib contusion with normal imaging. He reports falling on his buttock and back but denies hitting his head or loss of consciousness. 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 His back is axial, spreads across lower back and into right buttock with radiation in to right lower extremity posteriorly. Reports conservative treatments as noted below were minimally effective. He has not done physical therapy and denies any previous injections or back surgeries. Pain affects his daily functioning, ADLs, sleep, mobility and quality of life. He is on methadone maintaince program. Patient is interested to undergo interventional treatments to alleviate his right sided sciatica pain. Denies any fever, abdominal or groin pain, chest and abdominal wall pain, bladder or bowel incontinence or saddle anesthesia. Ambulates with slow antalgic gait without assisting devices. Onset 09/24/22 Location Low back pain radiates to right buttock and RLE posterioly Duration Chronic back pain but worsened since fall on 09/24/22 Characteristics of symptom or complaint Aching, stabbing, sharp, tingling, shooting, tiring, exhausting, cramping Aggravating or associated factors Walking, prolonged sitting, standing, changing positions, bending down Relieving factors Methadone, Naprosyn, cyclobenzaprine, ketorolac, lidocaine, Medrol Treatment Home exercise program: stretching exercises and rides bicycle [facility] Medical History (Updated 01/30/25 @ 12:58 by SONU Stevens) Lumbar radiculopathy, right Low back pain History of osteomyelitis Asthma Skin lesion Surgical History History of inguinal hernia repair Family History Father No problems noted. Mother Advanced cardiac disease Dementia in Alzheimer's disease Mental health disorder Social History Housing: Homeless Alcohol intake: never Patient Tobacco Use Status: Current everyday Tobacco user Tobacco use type: Cigarette Cigarette Packs Per Day: 0.5 Cigarettes Per Day: 3 e-Cigarette/Vaping Use: Never Used Second Hand Smoke Exposure: Yes Substance Use Type: Heroin service: No Current occupational status: employed Cognitive needs: Yes (Cane) Hearing needs: No Vision needs: Yes (Glasses) Review of Systems Const Details: - Musculoskeletal: Reports chronic back pain, right leg weakness - Neurological: Reports leg weakness, denies left-side symptoms. Denies bladder/bowel incontinence or saddle anesthesia. - General: Denies fever, chills, unintentional weight loss, rash or infection - Behavioral: Reports anxiety about surgical options or injections All systems reviewed & are unremarkable except as noted in HPI and below Physical Exam General: Appears afebrile. Alert and oriented. Mood and affect appropriate. Follows and participates in conversation appropriately. Respiratory effort is unlabored. No cough. Able to transition from sit to stand unassisted. Patient constantly adjust his positioning due to back pain, keeps right leg elevated while sitting. General: Yes no CVA tenderness Back/Spine/Pelvis Other: Patient is able to walk and stand on heels and tip toes with difficulty on the right due to pain and weakness. Slow antalgic gait with limping. Limited lumbar ROMdue to increase pain with flexion or bending. Demonstrates 5/5 strength of quadriceps bilaterally as well as flexion/dorsiflexion of bilateral feet against resistance. 2+ pedal pulses bilaterally. Seated straight leg rise with dorsiflexion positive on the right. Diminished patellar and trace achilles reflexes bilaterally. Facet loading test positive bilaterally. Jaun sign positive on the right. Jairo's and Stinchfield tests positive on the right. Valsalva maneuver is negative. Back: no CVA tenderness and back tenderness Cervical Spine: cervical ROM normal, cervical muscular tenderness and No Cervical spine tenderness Thoracic/Lumbar Spine: thoracic and lumbar spine normal to inspection, No Thoracic/lumbar spine scar(s), Lasegue's sign positive on the right and localized, pain with thoraco-lumbar ROM, paraspinal muscle tenderness, thoraco-lumbar ROM limited, No thoracic spinal tenderness and lumbar spinal tenderness at L4 and at L5 Pelvis: buttock tenderness on the right and sciatic notch tenderness on the right Sacroiliac joints: on the right tender to palpation and on the left nontender Results Reviewed Results Reviewed: Assessment & Plan Assessment & Plan (1) Low back pain: Code(s): M54.50 - Low back pain, unspecified Category: Medical (2) Spondylolisthesis, lumbosacral region: Code(s): M43.17 - Spondylolisthesis, lumbosacral region Category: Medical (3) Lumbar degenerative disc disease: Code(s): M51.36 - Other intervertebral disc degeneration, lumbar region Category: Medical (4) Lumbar radiculopathy, right: Code(s): M54.16 - Radiculopathy, lumbar region Category: Medical (5) Neuroforaminal stenosis of lumbosacral spine: Code(s): M48.07 - Spinal stenosis, lumbosacral region Category: Medical Plan The management plan involves evaluating the patient for a spinal cord stimulator trial as an evolving therapeutic approach for his back pain with right leg radiculopathy, avoiding more invasive surgical measures. The trialed and failed therapy has been reviewed with the patient. The risks, consequences, alternatives, and benefits of various treatment options were discussed with the patient in great detail, including conservative management, injections and procedures. A new MRI will be ordered to reassess the spinal condition, coupled with a psychological evaluation to ensure patient compatibility with the device. Pain management using current medications will proceed, facilitating gradual methadone reduction per his clinic. All questions and concerns have been answered and patient agreed with the plan. Follow up for MRI results and sooner as needed. Patient was informed and verbally consented to the use of an ambient scribe for clinic note documentation during this visit. Orders: Orders MR lumbar spine wo/w con Today M43.17 - Spondylolisthesis, lumbosacral region, M48.07 - Spinal stenosis, lumbosacral region, M51.36 - Other intervertebral disc degeneration, lumbar region, M54.16 - Radiculopathy, lumbar region, M54.50 - Low back pain, unspecified, Z87.39 - Personal history of other diseases of the musculoskeletal system and connective tissue Patient Instructions: I discussed the patient's chronic back pain and radiculopathy management strategy, focusing on avoiding surgical interventions per patient's request. The potential benefits and procedural steps of the spinal cord stimulator were explained, alongside an overview of its trial period and permanent placement options. The patient appeared receptive, particularly to non-surgical interventions, given past experiences and concerns. I emphasized the necessity of updated imaging and psychological assessments as prerequisites. Evaluating chances of reoccurrence of osteomyelitis was noted, referencing improvement with prior antibiotic use. - Expect a phone call to schedule an MRI - Follow instructions for the psychological evaluation appointment - Continue taking current medications as directed - Monitor pain levels and inform of any significant changes - Avoid rapid movements that trigger weakness or falls - Await contact regarding the spinal cord stimulator trial appointment - Seek medical attention if worsening pain or new symptoms occur Coding Level of Care Code Est Pt Level 4 (17313) Complex EM visit Add On G2211 Diagnoses Low back pain M54.50 Spondylolisthesis, lumbosacral region M43.17 Lumbar degenerative disc disease M51.36 Lumbar radiculopathy, right M54.16 Neuroforaminal stenosis of lumbosacral spine M48.07
[2025-01-30 10:33] VITALS: BP 146/87; PULSE 77; O2SAT 98; BMI 26.8
== END 2025-01-30 10:51 | disposition home or self-care (01) ==
LOC: HO.PMC 10:24
PROVIDERS: Visit Provider Nurse Practitioner Family
DX: M54.50 Low back pain, unspecified (principal); M43.17 Spondylolisthesis, lumbosacral region; M51.369 Other intervertebral disc degeneration, lumbar region without mention of lumbar back pain or lower extremity pain; M54.16 Radiculopathy, lumbar region; M48.07 Spinal stenosis, lumbosacral region
CPT/HCPCS: 99214; G2211

== ENCOUNTER → 2025-01-30 10:23 | Outpatient (BNVA) | payer OTHER, SELFPAY | PROVIDERS: Visit Provider Nurse Practitioner Family | DX: M51.360 Other intervertebral disc degeneration, lumbar region with discogenic back pain only (principal); M43.17 Spondylolisthesis, lumbosacral region; M54.16 Radiculopathy, lumbar region; M48.07 Spinal stenosis, lumbosacral region | CPT/HCPCS: 99212 ==

== ENCOUNTER 2025-02-13 13:25 | Outpatient (AMB) | payer OTHER, SELFPAY ==
[2025-02-13 13:35] VITALS: BP 142/92; PULSE 84; TEMP 36.2; O2SAT 97; BMI 27.0
--- NOTE | 2025-02-13 13:35 | MHC.PC.OV ---
Vital Signs 02/13/25 13:35 Height 5 ft 7 in Weight 172 lb 6 oz BMI 27.0 BP 142/92 H Blood Pressure Location Lt brachial Position Sitting Pulse 84 Pulse Source Pulse Oximeter Temp 97.1 F Temp Source Temporal Artery Scan Pulse Oximetry (%) 97 Oxygen Delivery Method Room Air Intake Visit Reasons: Transfer Care from Dr. Pearl Follow Up Plastics Repairer Required: Yes Plastics Repairer Name: [email or web address]/[id number] Plastics Repairer Information Interpreted: clinical only Waiter/Waitress Informal: Not Required per policy Accompanied by: Self / Same As Patient Allergies No Known Allergies [No Known Allergies*] Allergy (Verified 02/13/25 13:43) Medication List - Last Reconciled 02/13/25 by KIYA Rubalcava albuterol sulfate 90 mcg/actuation (Ventolin HFA) 2 puffs PO QID PRN blood pressure test kit-large As directed once daily cyclobenzaprine 10 mg PO BEDTIME PRN 30 days fexofenadine (Radha Allergy) 180 mg PO DAILY fluticasone propionate 50 mcg/actuation (Allergy Relief (fluticasone)) 1 spray intranasal DAILY gabapentin 300 mg PO TID PRN 30 days hydroxyzine HCl 25 mg PO BID melatonin 3 mg PO BEDTIME methadone (Methadone Intensol) 115 mg PO DAILY naproxen (Naprosyn) 500 mg PO BID PRN nicotine 1 patch topical DAILY triamcinolone acetonide 0.5% 1 appl topical TID [tub seat As directed] [walker As directed] Tobacco use date assessed: 01/09/25 Dental Screening Dental Screen Date: 12/09/24 HPI Transfer Care from Dr. Pearl Follow Up HPI Details The patient is a 59-year-old male with past medical history of neuroformainal stenosis of lumbosacral spine, spondylolisthesis lumbosacral region, muscle spasm of back, asthma, and anemia The patient is presenting for transition of care from Dr. Pearl who retired Blood pressure noted to be elevated in office and the patient reports that he added salt to his excess morning, which could be the reason of his elevated blood pressure He states that he drinks coffee but only decaf and does not drink alcohol Reports that he is in a program that does not allow him to use any marijuana unless it is prescribed by a doctor The patient is requesting Marinol to be prescribed for his appetite and pain Patient reports chronic back pain and leg weakness/gait instability Back pain radiating into right leg, worsens if he sits for too long or walk long distance Patient describes his pain as feeling like a Charley horse Adds that he has had a methadone clinic and is only getting 80 mg of methadone now Reports that he has been lowering the dose with a counselor from the clinic with hopes to be completely off The patient verbalizes that he has a counselor and a recovery room rn Denies chest pain, SOB, heart palpitation, dizziness No abdominal pain for a/change in bowel habits Denies urinary symptoms [facility] Medical History (Updated 02/21/25 @ 20:25 by KIYA Rubalcava) IV drug user Lumbar radiculopathy, right Low back pain History of osteomyelitis Asthma Skin lesion Surgical History History of inguinal hernia repair Family History Father No problems noted. Mother Advanced cardiac disease Dementia in Alzheimer's disease Mental health disorder Social History Housing: Homeless Alcohol intake: never Patient Tobacco Use Status: Current everyday Tobacco user Tobacco use type: Cigarette Cigarette Packs Per Day: 0.5 Cigarettes Per Day: 3 e-Cigarette/Vaping Use: Never Used Second Hand Smoke Exposure: Yes Substance Use Type: Heroin service: No Current occupational status: employed Cognitive needs: Yes (Cane) Hearing needs: No Vision needs: Yes (Glasses) Questionnaire PHQ-9 Over the last 2 weeks, how often have you been bothered by any of the following problems? 1. Little interest or pleasure in doing things: more than half the days 2. Feeling down, depressed, or hopeless: more than half the days 3. Trouble falling or staying asleep, or sleeping too much: more than half the days 4. Feeling tired or having little energy: more than half the days 5. Poor appetite or overeating: more than half the days 6. Feeling bad about yourself - or that you are a failure or have let yourself or your family down: more than half the days 7. Trouble concentrating on things, such as reading the newspaper or watching television: more than half the days 8. Moving or speaking so slowly that other people could have noticed. Or the opposite - being so fidgety or restless that you have been moving around a lot more than usual: more than half the days 9. Thoughts that you would be better off or of hurting yourself in some way: not at all Total score: 16 Source: Developed by Drs. Rambo Du, Priyanka Madden, Kapil Sandra and colleagues, with an educational lakeisha from [email or web address]. Thrive Questionnaire Date Thrive assessed: 02/13/25 I am a: Patient What is your living situation today?: I have a steady place to live Within the past 12 months, did the food you bought not last and you didn't have the money to get more?: Never true Within the past 12 months, did you worry whether your food would run out before you got money to buy more?: Sometimes True Do you have trouble paying for medicines?: No Do you have trouble getting transportation to medical appointments?: No Do you have trouble paying your heating and electricity bill?: No Do you have trouble taking care of your child, family member or friend?: Yes Do you have trouble with day-to-day activities such as bathing, preparing meals, shopping, managing finances, etc.?: Yes Are you currently unemployed and looking for a job?: Yes Are you interested in more education?: Yes Please select the resources that you would like help with: Housing/[facility] Currently or been in a relationship where the following occur: No concerns reported THRIVE Score: 1 AUDIT C Alcohol Use Questionnaire (AUDIT-C) 1. How often do you have a drink containing alcohol?: Never 3. How often do you have six or more drinks on one occasion?: Never Total Score: 0 EMANUEL-7 AMB Questionnaire EMANUEL-7 Date EMANUEL - 7 assessed: 02/13/25 Feeling nervous, anxious, or on edge: 1 = Several days Not being able to stop or control worryin = More than half the days Worrying too much about different things: 2 = More than half the days Trouble relaxin = More than half the days Being so restless that it is hard to sit still: 2 = More than half the days Becoming easily annoyed or irritable: 2 = More than half the days Feeling afraid as if something awful might happen: 0 = Not at all Total EMANUEL-7 score (0-4 normal; 5-9 mild; 10-14 moderate; 15-21 severe): 11 Source: Developed by Drs. Rambo Du, Priyanka Madden, Kapil Sandra and colleagues, with an educational lakeisha from [email or web address]. Review of Systems Const Denies headache(s) Eyes Denies loss of vision ENT Denies vertigo, Denies dizziness, Denies headache(s) and Denies sore throat Card Denies chest pain, Denies leg edema and Denies lightheadedness Resp Denies cough, Denies hemoptysis and Denies wheezing GI Denies abdominal pain, Denies melena, Denies constipation, Denies diarrhea and Denies vomiting Denies dysuria, Denies urinary frequency and Denies urinary urgency Musc Reports back pain, Denies arthralgias, Denies joint swelling, Reports muscle cramps (In his back and legs), Reports muscle weakness (Leg weakness), Denies numbness, Reports radiating pain into limb (Into right leg) and Denies tingling Neuro Denies Abnormal speech present, Denies behavioral changes, Denies vertigo, Denies dizziness, Denies headache(s), Denies loss of vision, Denies memory loss, Denies numbness and Denies tingling Psych Denies anxiety, Denies behavioral changes, Denies depression, Denies memory loss and Denies panic attacks Bryan/Lymph Denies easy bleeding and Denies easy bruising Aller/Immun Denies wheezing Physical exam (Primary Care) Vital Signs: Last Vital Signs Temp 97.1 F 02/13/25 13:35 Pulse 84 02/13/25 13:35 BP 142/92 H 02/13/25 13:35 Pulse Ox 97 02/13/25 13:35 Oxygen Delivery Method Room Air 02/13/25 13:35 BMI result Body Mass Index 27.0 Tobacco/Smoking Status: Tobacco use Status Tobacco use date assessed 01/09/25 02/13/25 13:38 Patient Tobacco Use Status Current everyday Tobacco 02/13/25 13:38 Tobacco use type Cigarette 02/13/25 13:38 e-Cigarette/Vaping Use Never Used 02/13/25 13:38 PHQ-9: PHQ-9 Score PHQ-9: Total score 16 02/21/25 02:02 Thrive Assessment: Date of Thrive Assessment Date Thrive assessed 02/13/25 02/13/25 13:38 Currently or been in a relationship where the following occur: No concerns reported Const General: healthy appearing, no acute distress, alert and awake Nutritional Appearance: well nourished Orientation/consciousness: oriented to person, oriented to place and oriented to time HENMT Ears: TM's normal bilaterally General nose exam: Normal nasal mucous membranes and turbinates present Eyes Conjunctivae: conjunctivae normal Sclerae: sclerae normal Pupils: Equal, round and reactive pupils present Neck Neck: Yes no lymphadenopathy and Yes no JVD Thyroid: Thyroid normal Carotids: no bruits Resp Effort & Inspection: normal respiratory effort and not tachypneic Auscultation: no crackles, no rales, no rhonchi and no wheezes Cardio Rate: regular rate Rhythm: regular rhythm Heart sounds: no murmurs and normal S1 and S2 GI Palpation (GI): Soft to palpation, nontender, no hepatomegaly and no splenomegaly Auscultation: normal bowel sounds General: Yes no CVA tenderness Back/Spine/Pelvis Back: no CVA tenderness Thoracic/Lumbar Spine: lumbar spinal tenderness Skin General skin exam: no rashes or lesions noted and dry skin Neuro General: oriented to person, oriented to place and oriented to time Cranial nerves: Yes Equal, round and reactive pupils present Speech: No Abnormal speech present Gait exam (Neuro): Normal gait present Motor exam (neuro): no tremor noted Extrem Right upper extremity: full ROM Left upper extremity: full ROM Right lower extremity: full ROM and lower leg; no edema Left lower extremity: full ROM and lower leg; no edema Psych Mental Status: mental status grossly normal Speech and movement: Normal speech and movement present Affect: normal affect Attitude: cooperative Thought process: Normal thought process present Results Reviewed Results Reviewed: Laboratory Tests 01/09/25 08:42 WBC 6.8 RBC 4.28 L Hgb 13.3 L Hct 39.4 L MCV 92.1 MCH 31.1 MCHC 33.8 RDW 12.5 Plt Count 245 Sodium 139 Potassium 4.3 Chloride 106 Carbon Dioxide 27 Anion Gap 10 L BUN 18 H Creatinine 0.79 Estimated GFR > 60 Fasting Glucose 98 Calcium 9.0 D Total Bilirubin 0.3 AST 25 ALT 25 Alkaline Phosphatase 82 Total Protein 7.0 Albumin 4.1 Triglycerides 116 LDL Cholesterol, Calc 77 HDL Cholesterol 33 L PSA Screen 0.31 TSH 1.34 Coding Level of Care Code Est Pt Level 4 (02084) Diagnoses Elevated blood pressure reading without diagnosis of hypertension R03.0 Neuroforaminal stenosis of lumbosacral spine M48.07 Muscle spasm of back M62.830 Spondylolisthesis, lumbosacral region M43.17 Asthma, unspecified asthma severity, unspecified whether complicated, unspecified whether persistent J45.909 Asthma severity: unspecified severity Asthma persistence: unspecified Asthma complication type: unspecified Anemia, unspecified type D64.9 Anemia type: unspecified type Time Spent (min) 39 Assessment & Plan Assessment & Plan (1) Elevated blood pressure reading without diagnosis of hypertension: Code(s): R03.0 - Elevated blood-pressure reading, without diagnosis of hypertension Category: Medical Plan: Blood pressure 142/92 in office. The patient reports that he added salt to his excess morning and this could have been the reason for his high blood pressure. He is not on any blood pressure medication. Encouraged the patient to monitor blood pressure into reports readings to office if it continues to be elevated. Encouraged dash diet (2) Neuroforaminal stenosis of lumbosacral spine: Code(s): M48.07 - Spinal stenosis, lumbosacral region Category: Medical Plan: Continue cyclobenzaprine 10 mg at bedtime p.r.n., gabapentin 300 mg t.i.d. p.r.n. and naproxen 500 mg b.i.d. p.r.n. Follow up with pain management as scheduled (3) Muscle spasm of back: Code(s): M62.830 - Muscle spasm of back Category: Medical Plan: Cyclobenzaprine 10 mg at bedtime p.r.n. (4) Spondylolisthesis, lumbosacral region: Code(s): M43.17 - Spondylolisthesis, lumbosacral region Category: Medical Plan: Continue cyclobenzaprine 10 mg at bedtime p.r.n., gabapentin 300 mg t.i.d. p.r.n. and naproxen 500 mg b.i.d. p.r.n. Follow up with pain management as scheduled (5) Asthma: Code(s): J45.909 - Unspecified asthma, uncomplicated Category: Medical Qualifiers: Asthma severity: unspecified severity Asthma persistence: unspecified Asthma complication type: unspecified Qualified Code(s): J45.909 - Unspecified asthma, uncomplicated Plan: Lifestyle modifications like smoking cessation. Wear a mask when around irritants, fumes, or particulate matter (e.g., painting, lawn mowing). Increase humidification at home, especially in the winter. Annual flu shots and the pneumonia shot can mitigate exacerbation. Increase fluids if not contraindicated because of heart failure. Continue albuterol sulfate 90 mcg/actuation 2 puffs q.i.d. p.r.n. (6) Anemia: Code(s): D64.9 - Anemia, unspecified Category: Medical Qualifiers: Anemia type: unspecified type Qualified Code(s): D64.9 - Anemia, unspecified Plan: Mild stable anemia. Iron supplement ordered. Orders: Orders Complete Blood Count Auto Diff 3 Months - Unspecified asthma, uncomplicated, D64.9 - Anemia, unspecified, Z00.00 - Encounter for general adult medical examination without abnormal findings, Z87.39 - Personal history of other diseases of the musculoskeletal system and connective tissue, R03.0 - Elevated blood-pressure reading, without diagnosis of hypertension, M54.50 - Low back pain, unspecified Comprehensive Grace. Panel Fast 3 Months - Unspecified asthma, uncomplicated, D64.9 - Anemia, unspecified, Z00.00 - Encounter for general adult medical examination without abnormal findings, Z87.39 - Personal history of other diseases of the musculoskeletal system and connective tissue, R03.0 - Elevated blood-pressure reading, without diagnosis of hypertension, M54.50 - Low back pain, unspecified Lipid Panel 3 Months - Unspecified asthma, uncomplicated, D64.9 - Anemia, unspecified, Z00.00 - Encounter for general adult medical examination without abnormal findings, Z87.39 - Personal history of other diseases of the musculoskeletal system and connective tissue, R03.0 - Elevated blood-pressure reading, without diagnosis of hypertension, M54.50 - Low back pain, unspecified IRON PROFILE 3 Months D64.9 - Anemia, unspecified, Z87.39 - Personal history of other diseases of the musculoskeletal system and connective tissue, R03.0 - Elevated blood-pressure reading, without diagnosis of hypertension, M54.50 - Low back pain, unspecified, J45.909 - Unspecified asthma, uncomplicated, Z00.00 - Encounter for general adult medical examination without abnormal findings TSH reflex Free T4 3 Months J45.909 - Unspecified asthma, uncomplicated, D64.9 - Anemia, unspecified, Z00.00 - Encounter for general adult medical examination without abnormal findings, Z87.39 - Personal history of other diseases of the musculoskeletal system and connective tissue, R03.0 - Elevated blood-pressure reading, without diagnosis of hypertension, M54.50 - Low back pain, unspecified UA CC w/rflx Micro + Cult 3 Months J45.909 - Unspecified asthma, uncomplicated, D64.9 - Anemia, unspecified, Z00.00 - Encounter for general adult medical examination without abnormal findings, Z87.39 - Personal history of other diseases of the musculoskeletal system and connective tissue, R03.0 - Elevated blood-pressure reading, without diagnosis of hypertension, M54.50 - Low back pain, unspecified Vitamin D 25-OH Total 3 Months J45.909 - Unspecified asthma, uncomplicated, D64.9 - Anemia, unspecified, Z00.00 - Encounter for general adult medical examination without abnormal findings, Z87.39 - Personal history of other diseases of the musculoskeletal system and connective tissue, R03.0 - Elevated blood-pressure reading, without diagnosis of hypertension, M54.50 - Low back pain, unspecified Medications: New iron,carbonyl-vitamin C 65 mg iron- 125 mg (Vitron-C) 1 tab PO DAILY 90 tabs 2RF
== END 2025-02-13 14:22 | disposition home or self-care (01) ==
LOC: HO.HMCH 13:26
DX: R03.0 Elevated blood-pressure reading, without diagnosis of hypertension (principal); M48.07 Spinal stenosis, lumbosacral region; M62.830 Muscle spasm of back; M43.17 Spondylolisthesis, lumbosacral region; J45.909 Unspecified asthma, uncomplicated; D64.9 Anemia, unspecified

== ENCOUNTER 2025-02-13 13:25 | Outpatient (REF) | payer OTHER, SELFPAY | END 2025-02-13 13:26 | disposition home or self-care (01) | LOC: HO.LAB 13:25 | DX: R03.0 Elevated blood-pressure reading, without diagnosis of hypertension (principal); M48.07 Spinal stenosis, lumbosacral region; M62.830 Muscle spasm of back; M43.17 Spondylolisthesis, lumbosacral region; J45.909 Unspecified asthma, uncomplicated; D64.9 Anemia, unspecified | CPT/HCPCS: 99212 ==

== ENCOUNTER 2025-02-14 09:57 | Outpatient (REF) | payer OTHER, SELFPAY ==
--- NOTE | ~2025-02-14 | MR_ITS ---
EXAMINATION: MR LUMBAR SPINE WITHOUT CONTRAST CLINICAL INFORMATION: Weakness and pain, right lower extremity COMPARISON: Correlated to x-ray dated November 12, 2022. TECHNIQUE: MRI of the lumbar spine was obtained using routine sequences without contrast. FINDINGS: Left rib-bearing vertebra labeled T12. Subtle bone marrow STIR signal involving the L4 and L5 vertebral bodies as well as the superior endplate of S1. Modic type I endplate changes at L5-S1 and L4-5 level. Marginal osteophyte formation decreased intervertebral disc height and signal at L5-S1, L4-5 and L3-4 levels. Grade 1 anterolisthesis L5-S1 secondary to spondylolysis pars interarticularis. Grade 1 retrolisthesis L4-5 on a degenerative basis. Dextroconvex curvature of the lumbar spine. Conus medullaris ends at pedicle of L1 with normal signal. T12-L1: No herniated disc. No neuroforamina stenosis. L1-2: No herniated disc. No neuroforamina stenosis. L2-3: Broad-based disc bulging. Facet joint and ligamentum flavum hypertrophy. Reduced AP diameter of the thecal sac and the left neuroforamina on a multifactorial basis. L3-4: Broad-based disc bulging. Facet joint and ligamentum flavum hypertrophy. Reduced AP diameter of the thecal sac and bilateral neuroforamina narrowing/stenosis left greater than right side likely encroaching the exiting nerve roots and the neural elements of the thecal sac. L4-5: Asymmetric broad-based disc bulging. Facet joint and ligamentum flavum hypertrophy. Central spinal canal and bilateral neuroforamina stenosis encroaching the exiting nerve roots. L5-S1: Grade 1 anterolisthesis. Reduced AP diameter of the central spinal canal. Bilateral neuroforamina stenosis compressing the L5 exiting nerve roots. No prevertebral compartment hematoma, mass or fluid collection. Hyperintense T2 cystic lesions in the kidneys. Soft tissue fullness in the posterior limb right adrenal gland Asymmetric volume loss right psoas muscle. MR/MR lumbar spine wo con IMPRESSION: Multilevel spondylosis from L3-4 to L5-S1. Grade 1 anterolisthesis L5-S1 secondary to spondylolysis pars interarticularis resulting in bilateral neuroforamina stenosis compressing the L5 exiting nerve roots. Grade 1 retrolisthesis L4-5 resulting in bilateral neuroforamina stenosis encroaching the L4 exiting nerve roots. Central spinal canal and bilateral neuroforamina stenosis at L3-4 on a degenerative basis and worsening by the dextroconvex scoliosis. Electronically signed by: Sander Govea MD 02/14/2025 12:38 PM EDT RP
== END 2025-02-14 09:58 | disposition home or self-care (01) ==
LOC: HO.MRI 09:57
PROVIDERS: Visit Provider Nurse Practitioner Family
DX: M43.17 Spondylolisthesis, lumbosacral region (principal); M54.16 Radiculopathy, lumbar region; M48.07 Spinal stenosis, lumbosacral region; M54.50 Low back pain, unspecified; Z87.39 Personal history of other diseases of the musculoskeletal system and connective tissue
CPT/HCPCS: 72148

== ENCOUNTER → 2025-02-14 09:57 | Outpatient (BNV) | payer OTHER, SELFPAY | PROVIDERS: Visit Provider Radiology Diagnostic Radiology | DX: M47.896 Other spondylosis, lumbar region (principal) | CPT/HCPCS: 72148 ==

== ENCOUNTER 2025-02-27 14:45 | Outpatient (AMB) | payer OTHER, SELFPAY ==
[2025-02-27 14:58] VITALS: BP 142/79; PULSE 74; RESP 16; O2SAT 96; BMI 27.2
--- NOTE | 2025-02-27 14:58 | MHC.OFFVIS ---
Vital Signs 02/27/25 14:58 Height 5 ft 7 in Weight 174 lb BMI 27.2 BP 142/79 H Blood Pressure Location Lt brachial Position Sitting Respiration 16 Pulse 74 Pulse Source Pulse Oximeter Pulse Oximetry (%) 96 Oxygen Delivery Method Room Air Intake Visit Reasons: follow up MRI results Windows Vmware Engineer Required: No Windows Vmware Engineer Name: Anali [id number] Allergies No Known Allergies [No Known Allergies*] Allergy (Verified 02/27/25 14:58) HPI Comments Details: Patient presents today for follow up to discuss recent lumbar spine MRI results. Denies any recent cough, cold, infection, fever or any significant changes in medical history since last office visit. Patient continues to endorse chronic back pain and radiculopathy affecting the right leg. The pain, notable for traveling down the side and the back of the leg, is periodic and accompanied by sensations of numbness and tingling, particularly after physical exertion such as walking. Relief is achieved when lying down with the leg elevated. This discomfort is compounded by episodes of instability and occasional falls, including a notable incident resulting in a forehead scar in the past. The patient describes no issues with the left leg or involuntary urination. Recent imaging studies show advanced lumbar arthritis with Grade 1 slippage at L4-L5 and L5-S1, central spinal canal and bilateral neuroforamina stenosis at these levels and additionally at L3-4 on a degenerative basis and worsened by the dextroconvex scoliosis, exacerbating his chronic condition. We discussed interventional treatments, including therapeutic epidural steroid injection. Patient is hesitant towards injection but will notify our office of his decision. He declined neurosurgical evaluation as he wants to avoid surgery. Cystic kidney lesions were also identified and advised patient to further follow up with his PCP. The patient?s current treatment involves methadone, and he expressed interest in cannabinoid-based medication, specifically Marinol, due to limitations on cannabis use with existing treatments. PRIOR: The patient is a 59-year-old male presenting with worsening back pain with right-sided radiculopathy. He reports experiencing chronic back pain over several years, previously diagnosed as spinal stenosis with a herniated disc. The patient recalls being seen a few years ago for significant spinal stenosis at right L5-S1, which was confirmed by MRI at that time, and associated lumbar pain radiating to the right leg. Denies any symptoms on the left. He reports a history of consultation with a back surgeon, but his pain was not deemed severe enough for surgical intervention. No physical therapy has been undertaken since the initial assessment. The pain reportedly interferes significantly with the patient's daily functioning, including walking and sitting. Specifically, the patient elaborated on occasions when attempting to stand up from bed quickly resulted in episodes of leg weakness and a history of falls. He experiences heightened discomfort when bending forward or attempting physical exertion. Notably, he has had incidents of leg weakness and a need for support when performing activities like driving. The patient has been utilizing ibuprofen and gabapentin for pain management in conjunction with methadone therapy, the latter dosed at 82 mg with a reduction strategy through his Methadone clinic. He reports concern about surgical intervention due to a past incident involving a friend, making him hesitant to pursue surgical options. The conversation also noted a history of lumbar osteomyelitis treated with antibiotics at [facility] in 2022, which resulted in symptomatic relief. To date, he has refused to undergo back injections or surgical procedures and has expressed interest in exploring a spinal cord stimulator as an alternative treatment option. - Onset/Timing: Chronic, persists for several years - Quality/Character: Persistent back pain with radiation to the right leg - Location: Lumbar region with right-sided leg involvement - Exacerbating factors: Bending, sudden movement - Relieving factors: Stretching, rest, activity and position modifications - Functional Interference: Walking, standing, sitting, driving, sleep - Affect: Reports psychological concern and anxiety due to previous friend's surgery outcome - Analgesia: Currently using ibuprofen, gabapentin, reduced methadone dosage at 82 mg - Adverse Effects: No specific side effects reported - Activities of Daily Living: Difficulty standing and walking due to pain, requires aid for driving - Aberrant Drug-Related Behaviors: None reported PRIOR 05/19/23: Patient presents today for follow up for worsening low back pain and right sided radiculopathy. He was initially seen in our office in January with pending lumbar spine MRI order which was not completed at that time. Patient reports he was recently hospitalized at [facility] on 04/08/23 for severe back pain, right leg pain and weakness, lumbar radiculopathy and opioid dependence. Patient reports severe low back pain at that time of admission that he manually had to pick up attendant and move his right leg due to numbness and weakness. He was discharged home on 04/14/2023 this home PT. During his hospitalization, he underwent lumbar spine MRI with concern for discitis, osteomyelitis however clinically seemed unlikely per [facility] discharge summary. Patient does have medical history of IV drug use who is also on methadone, tobacco use, and hepatitis-C. He reports partial pain alleviation of his gabapentin, ibuprofen in short script of oxycodone. He continues to experience right leg pain and weakness with walking or bending. We will proceed his neurosurgical evaluation. Denies any fever, weight loss, abdominal or groin pain, bladder or bowel incontinence or saddle anesthesia. PRIOR: Patient is a pleasant 57 years old male presents today lower back that has been worsening since status post mechanical slip and fall in bathroom on 09/24. Patient was evaluated at [facility] after fall for left sided rib contusion with normal imaging. He reports falling on his buttock and back but denies hitting his head or loss of consciousness. 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 His back is axial, spreads across lower back and into right buttock with radiation in to right lower extremity posteriorly. Reports conservative treatments as noted below were minimally effective. He has not done physical therapy and denies any previous injections or back surgeries. Pain affects his daily functioning, ADLs, sleep, mobility and quality of life. He is on methadone maintaince program. Patient is interested to undergo interventional treatments to alleviate his right sided sciatica pain. Denies any fever, abdominal or groin pain, chest and abdominal wall pain, bladder or bowel incontinence or saddle anesthesia. Ambulates with slow antalgic gait without assisting devices. Onset 09/24/22 Location Low back pain radiates to right buttock and RLE posterioly Duration Chronic back pain but worsened since fall on 09/24/22 Characteristics of symptom or complaint Aching, stabbing, sharp, tingling, shooting, tiring, exhausting, cramping Aggravating or associated factors Walking, prolonged sitting, standing, changing positions, bending down Relieving factors Methadone, Naprosyn, cyclobenzaprine, ketorolac, lidocaine, Medrol Treatment Home exercise program: stretching exercises and rides bicycle [facility] Medical History IV drug user Lumbar radiculopathy, right Low back pain History of osteomyelitis Asthma Skin lesion Surgical History History of inguinal hernia repair Family History Father No problems noted. Mother Advanced cardiac disease Dementia in Alzheimer's disease Mental health disorder Social History Housing: Homeless Alcohol intake: never Patient Tobacco Use Status: Current everyday Tobacco user Tobacco use type: Cigarette Cigarette Packs Per Day: 0.5 Cigarettes Per Day: 3 e-Cigarette/Vaping Use: Never Used Second Hand Smoke Exposure: Yes Substance Use Type: Heroin service: No Current occupational status: employed Cognitive needs: Yes (Cane) Hearing needs: No Vision needs: Yes (Glasses) Review of Systems Const Details: - Musculoskeletal: Reports chronic back pain with right leg radiation. Denies left leg involvement. - Neurological: Reports numbness and tingling in the right leg. Denies bladder or bowel dysfunction or saddle anesthesia. - Renal: Reports cystic kidney lesions per recent imaging. All systems reviewed & are unremarkable except as noted in HPI and below Physical Exam General: Appears afebrile. Alert and oriented. Mood and affect appropriate. Follows and participates in conversation appropriately. Respiratory effort is unlabored. No cough. Able to transition from sit to stand unassisted. Patient constantly adjust his positioning due to back pain, keeps right leg elevated while sitting. General: Yes no CVA tenderness Back/Spine/Pelvis Other: Limited lumbar ROM due to pain. Antalgic gait with limping, reports right leg weakness. Increased pain with flexion or bending and axial rotations, extension. Demonstrates 5/5 left and 4/5 right strength of quadriceps bilaterally as well as flexion/dorsiflexion of bilateral feet against resistance. 2+ pedal pulses bilaterally. Seated straight leg rise with dorsiflexion positive on the right. Diminished patellar and trace achilles reflexes bilaterally. Facet loading test positive bilaterally. Jaun sign positive on the right. Jairo's and Stinchfield tests positive on the right. Valsalva maneuver is negative. Back: no CVA tenderness and back tenderness Cervical Spine: cervical ROM normal, cervical muscular tenderness and No Cervical spine tenderness Thoracic/Lumbar Spine: thoracic and lumbar spine normal to inspection, No Thoracic/lumbar spine scar(s), Lasegue's sign positive on the right and localized, pain with thoraco-lumbar ROM, paraspinal muscle tenderness, thoraco-lumbar ROM limited, No thoracic spinal tenderness and lumbar spinal tenderness at L4 and at L5 Pelvis: buttock tenderness on the right and sciatic notch tenderness on the right Sacroiliac joints: on the right tender to palpation and on the left nontender Extrem General: Yes capillary refill normal, Yes no clubbing, cyanosis or edema and Yes no calf tenderness Results Reviewed Results Reviewed: MR LUMBAR SPINE WITHOUT CONTRAST 02/14/25 CLINICAL INFORMATION: Weakness and pain, right lower extremity COMPARISON: Correlated to x-ray dated November 12, 2022. TECHNIQUE: MRI of the lumbar spine was obtained using routine sequences without contrast. FINDINGS: Left rib-bearing vertebra labeled T12. Subtle bone marrow STIR signal involving the L4 and L5 vertebral bodies as well as the superior endplate of S1. Modic type I endplate changes at L5-S1 and L4-5 level. Marginal osteophyte formation decreased intervertebral disc height and signal at L5-S1, L4-5 and L3-4 levels. Grade 1 anterolisthesis L5-S1 secondary to spondylolysis pars interarticularis. Grade 1 retrolisthesis L4-5 on a degenerative basis. Dextroconvex curvature of the lumbar spine. Conus medullaris ends at pedicle of L1 with normal signal. T12-L1: No herniated disc. No neuroforamina stenosis. L1-2: No herniated disc. No neuroforamina stenosis. L2-3: Broad-based disc bulging. Facet joint and ligamentum flavum hypertrophy. Reduced AP diameter of the thecal sac and the left neuroforamina on a multifactorial basis. L3-4: Broad-based disc bulging. Facet joint and ligamentum flavum hypertrophy. Reduced AP diameter of the thecal sac and bilateral neuroforamina narrowing/stenosis left greater than right side likely encroaching the exiting nerve roots and the neural elements of the thecal sac. L4-5: Asymmetric broad-based disc bulging. Facet joint and ligamentum flavum hypertrophy. Central spinal canal and bilateral neuroforamina stenosis encroaching the exiting nerve roots. L5-S1: Grade 1 anterolisthesis. Reduced AP diameter of the central spinal canal. Bilateral neuroforamina stenosis compressing the L5 exiting nerve roots. No prevertebral compartment hematoma, mass or fluid collection. Hyperintense T2 cystic lesions in the kidneys. Soft tissue fullness in the posterior limb right adrenal gland Asymmetric volume loss right psoas muscle. IMPRESSION: Multilevel spondylosis from L3-4 to L5-S1. Grade 1 anterolisthesis L5-S1 secondary to spondylolysis pars interarticularis resulting in bilateral neuroforamina stenosis compressing the L5 exiting nerve roots. Grade 1 retrolisthesis L4-5 resulting in bilateral neuroforamina stenosis encroaching the L4 exiting nerve roots. Central spinal canal and bilateral neuroforamina stenosis at L3-4 on a degenerative basis and worsening by the dextroconvex scoliosis. Assessment & Plan Assessment & Plan (1) Low back pain: Code(s): M54.50 - Low back pain, unspecified Category: Medical (2) Spondylolisthesis, lumbosacral region: Code(s): M43.17 - Spondylolisthesis, lumbosacral region Category: Medical (3) Lumbar degenerative disc disease: Code(s): M51.36 - Other intervertebral disc degeneration, lumbar region Category: Medical (4) Lumbar radiculopathy, right: Code(s): M54.16 - Radiculopathy, lumbar region Category: Medical (5) Neuroforaminal stenosis of lumbosacral spine: Code(s): M48.07 - Spinal stenosis, lumbosacral region Category: Medical Plan I explained the findings of recent lumbar MRI, including lumbar degenerative disc disease with radiculopathy and spondylolisthesis, proposing a right L4-L5 TFESI with local and fluoroscopy for management, contingent on insurance approval. Expectations, risks and benefits were reviewed. Patient will notify our office if he is interested to proceed. Opiate prescriptions remain unadjusted, patient is not candidate for our opioid program. He is currently on Methadone therapy. Request for Marinol was denied. Further evaluation by a Neurosurgeon is suggested should symptoms worsen. Kidney lesions require monitoring by his primary care provider. I reiterated a non-surgical approach due to patient preference, with a focus on regular follow-up to gauge response and adjust management as needed. All questions and concerns have been answered and patient agreed with the plan. Follow-up as needed. Patient was informed and verbally consented to the use of an ambient scribe for clinic note documentation during this visit. Coding Level of Care Code Est Pt Level 4 (11502) Complex EM visit Add On G2211 Diagnoses Low back pain M54.50 Spondylolisthesis, lumbosacral region M43.17 Lumbar degenerative disc disease M51.36 Lumbar radiculopathy, right M54.16 Neuroforaminal stenosis of lumbosacral spine M48.07
== END 2025-02-27 15:41 | disposition home or self-care (01) ==
PROVIDERS: Visit Provider Nurse Practitioner Family
DX: M54.50 Low back pain, unspecified (principal); M43.17 Spondylolisthesis, lumbosacral region; M51.369 Other intervertebral disc degeneration, lumbar region without mention of lumbar back pain or lower extremity pain; M54.16 Radiculopathy, lumbar region; M48.07 Spinal stenosis, lumbosacral region
CPT/HCPCS: 99214; G2211

== ENCOUNTER → 2025-02-27 14:45 | Outpatient (BNVA) | payer OTHER, SELFPAY | PROVIDERS: Visit Provider Nurse Practitioner Family | DX: M43.17 Spondylolisthesis, lumbosacral region (principal); M51.360 Other intervertebral disc degeneration, lumbar region with discogenic back pain only; M54.16 Radiculopathy, lumbar region; M48.07 Spinal stenosis, lumbosacral region | CPT/HCPCS: 99212 ==

== ENCOUNTER 2025-03-16 11:34 | Outpatient (REF) | payer OTHER, SELFPAY ==
--- NOTE | ~2025-03-16 | CT_ITS ---
EXAMINATION: CT ABDOMEN WITHOUT AND WITH CONTRAST CLINICAL INFORMATION: Other specified disorders adrenal glands. COMPARISON: Correlated to MRI lumbar spine dated February 14, 2025. TECHNIQUE: Contiguous axial thin section helical images of the abdomen were performed before and after the administration of 85 mL of Omnipaque 350 intravenous contrast. Examination performed at the portal venous and delayed phases. The data set was reformatted in the coronal and sagittal planes and reviewed on an independent workstation. No reported immediate complications. This CT examination was performed using dose optimization techniques as appropriate, variously including the following: *Automated exposure control *Adjustment of mA and/or kV according to patient size (this includes techniques or standardized protocols for targeted exams where dose is matched to indication/reason for exam; i.e. extremities or head) *Use of iterative reconstruction technique DLP: 580 mGy centimeter. FINDINGS: LUNG BASES: No acute airspace disease. No gross pulmonary nodules. LIVER, GALLBLADDER, AND BILIARY TREE: Liver measures 16 cm. Punctate calcifications in the right hepatic lobe likely granuloma. No focal enhancing mass. Portal veins, hepatic veins and intrahepatic portion of the IVC are patent. No intrahepatic biliary ductal dilatation. No pericholecystic fluid collection or gallbladder wall thickening. Common bile duct measures 4 mm. PANCREAS: No focal lesion. No main pancreatic ductal dilatation. No peripancreatic fluid collections. SPLEEN: 8 cm. No focal lesion. ADRENAL GLANDS AND KIDNEYS: There is an 8 mm low density nodule which measures -11 Hounsfield units in the noncontrast phase. No nodular lesions in the left adrenal gland. Right kidney: No hydronephrosis. No nephrolithiasis. 8 mm nonenhancing fluid density, posterior midportion. Normal urinary excretion into the collecting system. Left kidney: No hydronephrosis. No nephrolithiasis. No enhancing mass. Normal urinary excretion into the collecting system. BOWEL LOOPS: Abundant stool, large intestine. No intestinal obstruction pattern. No pneumatosis intestinalis. No intestinal thickening. Appendix is normal. No ascites. No pneumoperitoneum. LYMPH NODES: No gross lymphadenopathy, mesenteric and retroperitoneum. VASCULAR: No aneurysm or dissection, abdominal aorta. Calcified plaques in the descending thoracic aorta suprarenal abdominal aorta dissection. Calcified plaques in the origin of the superior mesenteric artery and celiac trunk.. BONES: Marginal osteophyte formation and endplate sclerosis subchondral cyst formation and decreased intervertebral disc height and vacuum phenomenon at L3-4 and to a lesser extent L5-S1 and L4-5 levels. Grade 1 anterolisthesis L5-S1 secondary to spondylolysis pars interarticularis. Dextroconvex curvature of the thoracolumbar junction. CT/CT abdomen wo/w IV con IMPRESSION: 8 mm lipid rich adenoma, right adrenal gland. Bosniak type I cyst, right kidney. Spondylosis L3-4 L4-5 and L5-S1. Spondylolysis pars interarticularis L5-S1 resulting grade 1 anterolisthesis Fleischner guidelines were followed. Electronically signed by: Sander Govea MD 03/16/2025 02:04 PM EDT
[2025-03-16 11:55] LABS: MANUAL DIFF FLAG NO
[2025-03-16 11:58] LABS: Basophils Percent Auto 0.5 % (0-2); Eosinophils Absolute Auto 0.1 X10*3/uL (0.0-0.4); Eosinophils Percent Auto 1.9 % (0-4); Hematocrit 42.2 % (42.0-52.0); Hemoglobin 14.5 g/dl (14.0-18.0); Imm Gran Abs Auto 0.02 X10*3/uL (0.00-0.03); Imm Gran Pct Auto 0.3 % (0.0-0.4); Lymphocytes Absolute Auto 3.1 X10*3/uL (1.2-4.9); Lymphocytes Percent Auto 41.4 % (20-40); Mean Corpuscular HGB Conc 34.4 g/dl (31.0-36.0); Mean Corpuscular Hemoglobin 31.5 pg (27.0-33.0); Mean Corpuscular Volume 91.7 fL (80.0-98.0); Mean Platelet Volume 9.4 fL (9.4-12.4); Monocytes Absolute Auto 0.6 X10*3/uL (0.1-1.2); Monocytes Percent Auto 8.4 % (2-11); Neutrophils Absolute Auto 3.5 x10*3/uL (2.0-8.3); Neutrophils Percent Auto 47.5 % (45-73); Platelet Count 232 X10*3/uL (160-400); White Blood Count 7.4 X10*3/uL (4.8-10.8)
[2025-03-16 12:20] LABS: Alanine Aminotransferase 21 U/L (0-40); Albumin Level 4.5 g/dL (3.5-5.0); Alkaline Phosphatase 83 U/L (39-117); Anion Gap 12 (12-20); Aspartate Amino Transferase 30 U/L (5-37); Bilirubin Total 0.3 mg/dL (0.0-1.0); Blood Urea Nitrogen 18 mg/dL (9-16); Calcium 9.6 mg/dL (8.4-10.2); Carbon Dioxide 29 mmol/L (22-29); Chloride 105 mmol/L (96-108); Cholesterol 142 mg/dL (<200); Estimated Glomerular Filt Rate > 60; Glucose Fasting 117 mg/dL (60-99); HDL Cholesterol 33 mg/dL (>40); Iron 94 mcg/dL (45-160); LDL Cholesterol Calculated 83 mg/dL (<100); Percent Iron Saturation 29 % (15-50); Sodium 141 mmol/L (135-145); Total Iron Binding Capacity 320 mcg/dL (228-428); Total Protein 7.2 g/dL (6.5-8.0); Triglycerides 133 mg/dL (<150); Unsaturated Iron Binding 226 ug/dL
[2025-03-16 12:34] LABS: TSH reflex Free T4 1.16 uIU/mL (0.32-4.0); Vitamin D 25-OH Total 28.8 ng/mL (>30)
[2025-03-16 12:53] LABS: Appearance Urine Clear; Color Urine Yellow; Glucose Urine UA Negative (Negative); Leukocyte Esterase Urine Negative (Negative); Nitrite Urine Negative (Negative); Specific Gravity - Urine 1.025 (1.005-1.025); Urine Blood Negative (Negative); Urine Ketones Trace mg/dL (Negative); Urine Protein Negative (Neg-Trace)
[2025-03-16] MEDS: iohexoL 350 MG/ML 100 ML INFUS..BTL IV (13:42)
== END 2025-03-16 11:35 | disposition home or self-care (01) ==
LOC: HO.CT 11:34
DX: N28.1 Cyst of kidney, acquired (principal); E27.8 Other specified disorders of adrenal gland; J45.909 Unspecified asthma, uncomplicated; D64.9 Anemia, unspecified; R03.0 Elevated blood-pressure reading, without diagnosis of hypertension; M54.50 Low back pain, unspecified; Z00.00 Encounter for general adult medical examination without abnormal findings; Z87.39 Personal history of other diseases of the musculoskeletal system and connective tissue
CPT/HCPCS: 36415; 74170; 80053; 80061; 81003; 82306; 83540; 84443; 85025; Q9967

== ENCOUNTER → 2025-03-16 11:37 | Outpatient (BNV) | payer OTHER, SELFPAY | PROVIDERS: Visit Provider Radiology Diagnostic Radiology | DX: E27.8 Other specified disorders of adrenal gland (principal) | CPT/HCPCS: 74170 ==

== ENCOUNTER 2025-03-29 13:15 | Outpatient (AMB) | payer OTHER, SELFPAY ==
--- OUTSIDE RECORDS SUMMARY | 2025-03-29 07:15 | XMS_ITS ---
Author Organization [facility] Address [address], [place] [id number] Care Team Providers Care Program Aide Group Work Name Role Phone [facility] Primary Care Provider Un available Merly Calderon Unavailable [phone] REASON FOR VISIT New intake Encounters Encounter Location Date Provider Diagnosis [facility] [address] [place] [phone] 03/29/2025 Merly Calderon Plan Of Treatment Next Appt Details Provider Name:Merly Santacruz, 04/04/2025 11:00:00 AM, [facility], [address] [place] [address], [phone], Progress Notes * Abdirahman GARCIADOB:1965 (59 yo M)Acc No.[id number]:03/29/2025 Case Management Patient: Abdirahman ESPOSITO Provider: Crystal Calderon :1965 A ge:59 Y S ex:Male Date:03/29/2025 Address:[address] [place], [facility] Pcp:[facility] Subjective: * Chief Complaints: * 1 . New intake. * HPI: S ocial Service: Date of encounter 0 03/29/2025. R eferral Source w alk-in, self. I nterpretation for medical provider N ew Intake. A dvocacy n one. F ollow-up Required: y es. P t comprehension P t agrees with plan, Patient understood process and assisted with process. A ction taken (old) f orm completion, Items given to client, item obtained, Letter given to patient after photo copy made. * Medical History: Objective: * Vitals: Assessment: Plan: * Treatment: * Images: Billing Information: * Visit Code: * Procedure Codes: Care Plan Details* * Sign off status: Completed true * Provider: Crystal Calderon Date: 03/29/2025 Generated for Katia gomes/Omega/Antwan on: 03/29/2025 01:52 PM EDT History and Physical Notes * HPI (History of Present Illness) Category Sub-Category Detail Notes Category Not es Social Service Referral Source walk-in, self Interpretation for medical provider New Intake Action taken (old) form completion, Ite ms given to client, item obtained, Letter given to patient after photo copy made Advocacy none Follow-up Required: yes Pt comprehension Pt agrees with plan, Patient understood process and assisted with process Date of encounter 03/29/2025
--- NOTE | 2025-03-29 13:20 | MHC.OFFVIS ---
Vital Signs 03/29/25 13:21 Height 5 ft 7 in Weight 173 lb 8.061 oz BMI 27.2 BP 134/74 Blood Pressure Location Lt brachial Position Sitting Pulse 74 Pulse Source Pulse Oximeter Pulse Oximetry (%) 98 Oxygen Delivery Method Room Air Intake Visit Reasons: Other specified disorders of adrenal gland Intake Note: New patient internally referred by PCP for Other specified disorders of Adrenal Gland. Shown on Lumbar Spine done on 02/14/25 at [facility] [place]. 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: Yes [employer] Machine Tender Language: Domestic Travel Consultant Services: [employer] Machine Tender Present [employer] Machine Tender Name: [facility] Felisa Information Interpreted: non-clinical & clinical Accompanied by: Self / Same As Patient Allergies No Known Allergies (No Known Allergies*) Allergy (Verified 03/29/25 13:21) Medication List - Last Reconciled 03/29/25 by Rambo Lang MD albuterol sulfate 90 mcg/actuation (Ventolin HFA) 2 puffs PO QID PRN blood pressure test kit-large As directed once daily cyclobenzaprine 10 mg PO BEDTIME PRN 30 days dexamethasone 1 mg PO ONCE fexofenadine (Radha Allergy) 180 mg PO DAILY fluticasone propionate 50 mcg/actuation (Allergy Relief (fluticasone)) 1 spray intranasal DAILY gabapentin 300 mg PO TID PRN 30 days hydroxyzine HCl 25 mg PO BID ibuprofen 600 mg PO TID iron,carbonyl-vitamin C 65 mg iron- 125 mg (Vitron-C) 1 tab PO DAILY melatonin 3 mg PO BEDTIME methadone (Methadone Intensol) 115 mg PO DAILY nicotine 1 patch topical DAILY triamcinolone acetonide 0.5% 1 appl topical TID [tub seat As directed] [walker As directed] HPI Comments Details: The patient is a 59-year-old male presenting with an adrenal mass. The adrenal mass was incidentally discovered during imaging studies performed for back pain. The mass measures 8 mm and appears non-cancerous based on imaging characteristics from both CT and MRI scans. The patient has a history of hypertension, with two episodes requiring emergency room visits due to elevated blood pressure and associated symptoms of dizziness and blurry vision. He does not take any antihypertensive medications currently. The patient also reports a history of asthma, managed with an inhaler used as needed. He experiences chronic back pain, which has impacted his ability to work and is seeking social security benefits due to this condition. Additionally, the patient reports dysphagia, characterized by frequent choking. Had CT abdomen/pelvis [date] for which revealed TECHNIQUE: Contiguous axial thin section helical images of the abdomen were performed before and after the administration of 85 mL of Omnipaque 350 intravenous contrast. Examination performed at the portal venous and delayed phases. The data set was reformatted in the coronal and sagittal planes and reviewed on an independent workstation. No reported immediate complications. ADRENAL GLANDS AND KIDNEYS: There is an 8 mm low density nodule which measures -11 Hounsfield units in the noncontrast phase. No nodular lesions in the left adrenal gland. CT/CT abdomen wo/w IV con IMPRESSION: 8 mm lipid rich adenoma, right adrenal gland.. Prior CT dated []revealed. Denies history of spells with headache, flushing, diaphoresis, abdominal pain or diarrhea. Denies any weight gain, frequent infections, easy bruisability, development of violaceous striae. No History of HTN, but has had episodes of increased bp precipating ER visit No history of anticoagulant use. Denies any weight loss, orthostatic symptoms, hypoglycemia. No history of malignancy or TB. - Methadone: Taken for unspecified reasons - Inhaler: Used as needed for asthma Imaging: Labs: PENDING SALE TO [facility] Medical History IV drug user Lumbar radiculopathy, right Low back pain History of osteomyelitis Asthma Skin lesion Surgical History History of inguinal hernia repair Family History Father No problems noted. Mother Advanced cardiac disease Dementia in Alzheimer's disease Mental health disorder Social History Housing: Homeless Alcohol intake: never Patient Tobacco Use Status: Current everyday Tobacco user Tobacco use type: Cigarette Cigarette Packs Per Day: 0.5 Cigarettes Per Day: 3 e-Cigarette/Vaping Use: Never Used Second Hand Smoke Exposure: Yes Substance Use Type: Heroin service: No Current occupational status: employed Cognitive needs: Yes (Cane) Hearing needs: No Vision needs: Yes (Glasses) Physical Exam Vital Signs: Last Vital Signs Pulse 74 03/29/25 13:21 BP 134/74 03/29/25 13:21 Pulse Ox 98 03/29/25 13:21 Oxygen Delivery Method Room Air 03/29/25 13:21 BMI result Body Mass Index 27.2 Const Other: No cushingoid features. Skin shows the absence of hyperpigmentation or hypopigmentation. Thyroid gland is normal size weighs about 15 g. Abdominal exam is benign Assessment & Plan Assessment & Plan (1) Right adrenal mass: Code(s): E27.8 - Other specified disorders of adrenal gland Category: Medical Plan: This is a 59-year-old male with a history of a right adrenal mass with imaging characteristics suggestive of a benign adenoma. Rule out hypersecretion Plan is to check plasma metanephrines as well as perform a 1 mg dexamethasone suppression test with dexamethasone and cortisol levels. Further workup based on the above needed 1. Adrenal mass The patient has an 8 mm adrenal mass that appears non-cancerous based on imaging studies. Further testing is planned to assess hormone production from the adrenal glands, including a dexamethasone suppression test and a separate test for pheochromocytoma 2. Hypertension The patient has a history of hypertension with episodes of elevated blood pressure. Lifestyle modifications, including reduced salt intake, have been implemented. No current antihypertensive medications are being taken. Further evaluation of adrenal hormone production may provide insights into blood pressure management. During the visit, I explained the nature of the adrenal mass and its likely benign nature based on imaging studies. I discussed the importance of further testing to assess hormone production from the adrenal glands, including a dexamethasone suppression test and a separate test for adrenaline-like substances. I emphasized the need to perform these tests on separate days to avoid confounding results. We also discussed the patient's hypertension and the role of lifestyle modifications, such as reducing salt intake, in managing blood pressure. I advised the patient to follow up in three to four months after completing the tests, and to ensure the tests are done at least two to three weeks before the follow-up visit. I reassured the patient that the adrenal mass is likely an incidental finding and not a cause for immediate concern. The patient had an opportunity to ask questions regarding treatment plan. The patient expressed understanding and agreement with the above treatment plan. Patient was informed and verbally consented to the use of an ambient scribe for clinic note documentation during this visit. Orders: Orders Dexamethasone 2 Weeks E27.8 - Other specified disorders of adrenal gland Cortisol Random 2 Weeks E27.8 - Other specified disorders of adrenal gland Metanephrines, Plasma 1 Week E27.8 - Other specified disorders of adrenal gland Medications: New dexamethasone 1 mg PO ONCE 1 tab 0RF Coding Level of Care Code New Pt Level 4 (94102) Diagnoses Right adrenal mass E27.8
[2025-03-29 13:21] VITALS: BP 134/74; PULSE 74; O2SAT 98; BMI 27.2
== END 2025-03-29 14:09 | disposition home or self-care (01) ==
LOC: HO.ENCR 13:16
PROVIDERS: Visit Provider Internal Medicine Endocrinology, Diabetes & Metabolism
DX: E27.8 Other specified disorders of adrenal gland (principal)
CPT/HCPCS: 99204

== ENCOUNTER → 2025-03-29 13:15 | Outpatient (BNVA) | payer OTHER, SELFPAY | PROVIDERS: Visit Provider Internal Medicine Endocrinology, Diabetes & Metabolism | DX: E27.8 Other specified disorders of adrenal gland (principal); I10 Essential (primary) hypertension | CPT/HCPCS: 99202 ==

== ENCOUNTER 2025-04-04 07:38 | Outpatient (REF) | payer MEDICAID, SELFPAY | END 2025-04-04 07:39 | disposition home or self-care (01) | LOC: HO.LAB 07:38 | PROVIDERS: Visit Provider Internal Medicine Endocrinology, Diabetes & Metabolism | DX: E27.8 Other specified disorders of adrenal gland (principal) | CPT/HCPCS: 36415; 80299 ==

== ENCOUNTER 2025-04-05 12:10 | Outpatient (REF) | payer MEDICAID, SELFPAY ==
--- OUTSIDE RECORDS SUMMARY | 2025-04-04 07:00 | XMS_ITS ---
Author Organization [facility] Address [address], [place] [phone] Care Team Providers Care Drawing Kiln Operator Name Role Phone [facility] Primary Care Provider Un available Merly Calderon Unavailable REASON FOR VISIT Housing Encounters Encounter Location Date Provider Diagnosis [facility] [address] [place], [place] [phone] 04/04/2025 Merly Calderon Plan Of Treatment No Information Progress Notes * Abdirahman GARCIADOB:1965 (59 yo M)Acc No.[id number]:04/04/2025 Case Management Patient: Abdirahman ESPOSITO Provider: Crystal Calderon :1965 A ge:59 Y S ex:Male Date:04/04/2025 Address:[address] [facility] Pcp:[facility] Subjective: * Chief Complaints: * 1 . Housing. * Medical History: Objective: Assessment: Plan: * Treatment: * Images: Billing Information: * Visit Code: * Procedure Codes: Care Plan Details* * Electronic signature of Gavin Calderon on 04/05/2025 at 01:15 PM EDT Sign off status: Pending * Provider: Crystal Calderon Date: 0 04/04/2025 Generated for Katia gomes/Omega/Antwan on: 04/05/2025 01:15 PM EDT
[2025-04-10 17:44] LABS: Metanephrine, Free 72 pg/mL (<=57); Normetanephrines, Free 97 pg/mL (<=148); Total Metanephrine, Free 169 pg/mL (<=205)
== END 2025-04-05 12:11 | disposition home or self-care (01) ==
LOC: HO.LAB 12:10
PROVIDERS: Visit Provider Internal Medicine Endocrinology, Diabetes & Metabolism
DX: E27.8 Other specified disorders of adrenal gland (principal)
CPT/HCPCS: 36415; 82533; 83835

== ENCOUNTER 2025-04-06 12:50 | Outpatient (REF) | payer MEDICAID, SELFPAY ==
--- OUTSIDE RECORDS SUMMARY | 2025-04-04 07:00 | XMS_ITS ---
Author Organization [facility] Address [address] [place], [place] [id number] Care Team Providers Care Clinical Dental Technician Name Role Phone [facility] Primary Care Provider Un available Merly Calderon Unavailable REASON FOR VISIT Housing Encounters Encounter Location Date Provider Diagnosis [facility] [address] [place], [place] [phone] 04/04/2025 Merly Calderon Plan Of Treatment No Information Progress Notes * Abdirahman GARCIADOB:1965 (59 yo M)Acc No.[id number]:04/04/2025 Case Management Patient: Abdirahman ESPOSITO Provider: Crystal Calderon :1965 A ge:59 Y S ex:Male Date:04/04/2025 Address:[address] [facility] Pcp:[facility] Subjective: * Chief Complaints: * 1 . Housing. * Medical History: Objective: Assessment: Plan: * Treatment: * Images: Billing Information: * Visit Code: * Procedure Codes: Care Plan Details* * Electronic signature of Gavin Calderon on 04/06/2025 at 12:53 PM EDT Sign off status: Pending * Provider: Crystal Calderon Date: 0 04/04/2025 Generated for Katia gomes/Omega/eTbarneysmitting on: 04/06/2025 12:53 PM EDT
== END 2025-04-06 12:51 | disposition home or self-care (01) ==
LOC: HO.LAB 12:50
PROVIDERS: Visit Provider Internal Medicine Endocrinology, Diabetes & Metabolism
DX: Z13.89 Encounter for screening for other disorder (principal)

== ENCOUNTER 2025-04-10 13:39 | Outpatient (REF) | payer MEDICAID, SELFPAY ==
--- OUTSIDE RECORDS SUMMARY | 2025-04-04 07:00 | XMS_ITS ---
Author Organization [facility] Address [address] [place], [place] [phone] Care Team Providers Care Tailor Apprentice Name Role Phone [facility] Primary Care Provider Un available Merly Calderon Unavailable REASON FOR VISIT Housing Encounters Encounter Location Date Provider Diagnosis [facility] [address] [place], [place] [phone] 04/04/2025 Merly Calderon Plan Of Treatment No Information Progress Notes * Abdirahman GARCIADOB:1965 (59 yo M)Acc No.[id number]:04/04/2025 Case Management Patient: Abdirahman ESPOSITO Provider: Crystal Calderon :1965 A ge:59 Y S ex:Male Date:04/04/2025 Address:[address] [facility] Pcp:[facility] Subjective: * Chief Complaints: * 1 . Housing. * Medical History: Objective: Assessment: Plan: * Treatment: * Images: Billing Information: * Visit Code: * Procedure Codes: Care Plan Details* * Electronic signature of Gavin Calderon on 04/10/2025 at 02:49 PM EDT Sign off status: Pending * Provider: Crystal Calderon Date: 04/04/2025 Generated for Katia gomes/Omega/eTbarneysmitting on: 04/10/2025 02:49 PM EDT
[2025-04-21 19:07] LABS: Saliva Cortisol 0.08 mcg/dL
== END 2025-04-10 13:40 | disposition home or self-care (01) ==
LOC: HO.LNP 13:39
PROVIDERS: Visit Provider Internal Medicine Endocrinology, Diabetes & Metabolism
DX: E27.8 Other specified disorders of adrenal gland (principal)
CPT/HCPCS: 82530

== ENCOUNTER 2025-04-25 14:32 | Outpatient (AMB) | payer MEDICAID, SELFPAY ==
--- OUTSIDE RECORDS SUMMARY | 2025-04-04 07:00 | XMS_ITS ---
Author Organization [facility] Address [address], [place] [address] Care Team Providers Care Plumber'S Helper Name Role Phone [facility] Primary Care Provider Merly Calderon Unavailable [phone] REASON FOR VISIT Housing Encounters Encounter Location Date Provider Diagnosis [facility] [address] [place], [place] [phone] 04/04/2025 Merly Calderon Plan Of Treatment No Information Progress Notes * Abdirahman SCOTTDOB:1965 (59 yo M)Acc No.[id number]:04/04/2025 Case Management Patient: Abdirahman ESPOSITO Provider: Crystal Calderon :1965 A ge:59 Y S ex:Male Date:04/04/2025 Address:[address] [facility] Pcp:[facility] Subjective: * Chief Complaints: * 1 . Housing. * Medical History: Objective: Assessment: Plan: * Treatment: * Images: Billing Information: * Visit Code: * Procedure Codes: Care Plan Details* * Electronic signature of Gavin Calderon on 04/25/2025 at 03:14 PM EDT Sign off status: Pending * Provider: Crystal Calderon Date: 04/04/2025 Generated for Katia gomes/Omega/Antwan on: 04/25/2025 03:14 PM EDT
[2025-04-25 14:43] VITALS: BP 140/76; PULSE 76; RESP 18; TEMP 36.3; O2SAT 95; BMI 27.4
--- NOTE | 2025-04-25 14:43 | MHC.PC.OV ---
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 Accompanied by: Allergies No Known Allergies (No Known Allergies*) Allergy (Verified 04/25/25 15:08) Medication List - Last Reconciled 04/25/25 by KIYA Rubalcava albuterol sulfate 90 mcg/actuation (Ventolin HFA) 2 puffs PO QID PRN blood pressure test kit-large As directed once daily fexofenadine (Radha Allergy) 180 mg PO DAILY fluticasone propionate 50 mcg/actuation (Allergy Relief (fluticasone)) 1 spray intranasal DAILY gabapentin 300 mg PO TID PRN 30 days hydroxyzine HCl 25 mg PO BID ibuprofen 600 mg PO TID iron,carbonyl-vitamin C 65 mg iron- 125 mg (Vitron-C) 1 tab PO DAILY melatonin 3 mg PO BEDTIME methadone (Methadone Intensol) 115 mg PO DAILY triamcinolone acetonide 0.5% 1 appl topical TID [tub seat As directed] [walker As directed] Tobacco use date assessed: 04/25/25 Dental Screening Dental Screen Date: 04/25/25 Did you have a dental visit in the last 12 months?: No Did you have a dental problem in the last 6 months where you did not have access to dental care?: No Was dental information given to patient?: No HPI Discuss paperwork HPI Details The patient is a 59-year-old male presenting with concerns regarding a cyst in the kidney, dislocated disc, arthritis, and right leg pain. The patient is here to talk about applying for housing due to his chronic disabiling conditions. The patient reports having a cyst in the kidney, which has been a chronic issue. He mentions that this condition is related to a pressure calcium system, although it is not currently causing acute symptoms. The patient also has a history of a dislocated disc, which contributes to his chronic pain issues. This condition has not been specified in terms of duration or specific interventions undertaken. Arthritis is another condition affecting the patient, with associated right leg pain. The severity and specific impact of the arthritis were not detailed in the conversation. The patient would also like to get a lump on his right elbow evaluated. Reports that it has been there for a while and has noticed to be getting bigger. He denies pain to the area or skin discoloration. right elbow area epidermoid cyst-us, reports that he would like to get this check because he has a family member with something similar that turns out to be cancerous and it went into her bone [facility] Medical History IV drug user Lumbar radiculopathy, right Low back pain History of osteomyelitis Asthma Skin lesion Surgical History History of inguinal hernia repair Family History Father No problems noted. Mother Advanced cardiac disease Dementia in Alzheimer's disease Mental health disorder Social History Housing: Homeless Alcohol intake: never Patient Tobacco Use Status: Current everyday Tobacco user Tobacco use type: Cigarette Cigarette Packs Per Day: 0.5 Cigarettes Per Day: 3 e-Cigarette/Vaping Use: Former Use Second Hand Smoke Exposure: Yes Substance Use Type: Heroin service: No Current occupational status: employed Cognitive needs: Yes (Cane) Hearing needs: No Vision needs: Yes (Glasses) Questionnaire PHQ-9 Over the last 2 weeks, how often have you been bothered by any of the following problems? 1. Little interest or pleasure in doing things: more than half the days 2. Feeling down, depressed, or hopeless: more than half the days 3. Trouble falling or staying asleep, or sleeping too much: more than half the days 4. Feeling tired or having little energy: more than half the days 5. Poor appetite or overeating: more than half the days 6. Feeling bad about yourself - or that you are a failure or have let yourself or your family down: more than half the days 7. Trouble concentrating on things, such as reading the newspaper or watching television: more than half the days 8. Moving or speaking so slowly that other people could have noticed. Or the opposite - being so fidgety or restless that you have been moving around a lot more than usual: more than half the days 9. Thoughts that you would be better off or of hurting yourself in some way: not at all Total score: 16 Depression Screening Interpretation: Positive Depression Screening Done: Yes Source: Developed by Drs. Rambo Du, Priyanka Madden, Kapil Sandra and colleagues, with an educational lakeisha from [employer]. Thrive Questionnaire Date Thrive assessed: 04/25/25 I am a: Patient What is your living situation today?: I have a steady place to live Within the past 12 months, did the food you bought not last and you didn't have the money to get more?: Never true Within the past 12 months, did you worry whether your food would run out before you got money to buy more?: Sometimes True Do you have trouble paying for medicines?: No Do you have trouble getting transportation to medical appointments?: No Do you have trouble paying your heating and electricity bill?: No Do you have trouble taking care of your child, family member or friend?: Yes Do you have trouble with day-to-day activities such as bathing, preparing meals, shopping, managing finances, etc.?: Yes Are you currently unemployed and looking for a job?: Yes Are you interested in more education?: Yes Please select the resources that you would like help with: Housing/Retirement Currently or been in a relationship where the following occur: No concerns reported THRIVE Score: 1 AUDIT C Alcohol Use Questionnaire (AUDIT-C) 1. How often do you have a drink containing alcohol?: Never 3. How often do you have six or more drinks on one occasion?: Never Total Score: 0 EMANUEL-7 AMB Questionnaire EMANUEL-7 Date EMANUEL - 7 assessed: 04/25/25 Feeling nervous, anxious, or on edge: 1 = Several days Not being able to stop or control worryin = More than half the days Worrying too much about different things: 2 = More than half the days Trouble relaxin = More than half the days Being so restless that it is hard to sit still: 2 = More than half the days Becoming easily annoyed or irritable: 2 = More than half the days Feeling afraid as if something awful might happen: 0 = Not at all Total EMANULE-7 score (0-4 normal; 5-9 mild; 10-14 moderate; 15-21 severe): 11 Source: Developed by Drs. Rambo Du, Priyanka Madden, Kapil Sandra and colleagues, with an educational lakeisha from [employer]. Review of Systems Const Denies body aches, Denies chills, Denies fever(s), Denies headache(s) and Denies poor appetite Eyes Reports no additional complaints ENT Denies dysphagia, Denies dizziness, Denies headache(s) and Denies odynophagia Card Denies chest pain, Denies syncope, Denies edema, Denies irregular heart rhythm, Denies lightheadedness and Denies dyspnea Resp Denies cough and Denies dyspnea GI Denies abdominal pain, Denies constipation, Denies dysphagia, Denies diarrhea, Denies nausea, Denies odynophagia and Denies vomiting Reports no additional complaints Musc Reports back pain (Lower back), Reports muscle cramps (Lower back and both legs), Reports muscle weakness (Legs) and Reports radiating pain into limb (Intermittently, primarily in the right leg) Skin/Breast Reports other (lump to right elbow) Neuro Denies dizziness, Denies syncope and Denies headache(s) Psych Reports anxiety and Reports depression Physical exam (Primary Care) Vital Signs: Last Vital Signs Temp 97.3 F 04/25/25 14:43 Pulse 76 04/25/25 14:43 Resp 18 04/25/25 14:43 BP 140/76 H 04/25/25 14:43 Pulse Ox 95 04/25/25 14:43 Oxygen Delivery Method Room Air 04/25/25 14:43 BMI result Body Mass Index 27.4 Tobacco/Smoking Status: Tobacco use Status Tobacco use date assessed 04/25/25 04/25/25 14:54 Patient Tobacco Use Status Current everyday Tobacco 04/25/25 14:54 Tobacco use type Cigarette 04/25/25 14:54 e-Cigarette/Vaping Use Former Use 04/25/25 14:54 PHQ-9: PHQ-9 Score PHQ-9: Total score 16 04/27/25 13:25 Depression Screening Interpretation: Positive Thrive Assessment: Date of Thrive Assessment Date Thrive assessed 04/25/25 04/25/25 14:54 Currently or been in a relationship where the following occur: No concerns reported Const General: cooperative, healthy appearing, comfortable and no acute distress Orientation/consciousness: patient oriented x3 HENMT Head: Yes normocephalic Ears: hearing grossly normal bilaterally General nose exam: Normal external nose present Eyes General: appearance normal, both eyes and all related structures Conjunctivae: conjunctivae normal Neck Neck: Yes full ROM and Yes no lymphadenopathy Resp Effort & Inspection: normal respiratory effort Auscultation: clear to auscultation bilaterally, no crackles, no rales, no rhonchi and no wheezes Cardio Rate: regular rate Rhythm: regular rhythm GI Palpation (GI): Soft to palpation, nontender and No hepatosplenomegaly present Auscultation: normal bowel sounds General: Yes no CVA tenderness Back/Spine/Pelvis Back: no CVA tenderness Thoracic/Lumbar Spine: lumbar spinal tenderness Skin Lesions: lesion noted (Right elbow cyst) Neuro General: patient oriented x3 Gait exam (Neuro): Normal gait present and Antalgic gait present Extrem General: Yes normal to inspection, Yes full ROM and No edema Right upper extremity: full ROM and elbow/forearm (Right elbow cyst) Left upper extremity: full ROM Right lower extremity: full ROM; no edema Left lower extremity: full ROM; no edema Psych Affect: normal affect Attitude: cooperative Insight: Good insight present (Psych) Judgement: Good judgement present (Psych) Coding Level of Care Code Est Pt Level 3 (35424) Diagnoses Elevated blood pressure reading without diagnosis of hypertension R03.0 Right adrenal mass E27.8 Anemia, unspecified type D64.9 Anemia type: unspecified type Muscle spasm of back M62.830 Spondylolisthesis, lumbosacral region M43.17 Degeneration of intervertebral disc of lumbar region with discogenic back pain and lower extremity pain M51.362 Disc-related pain type: discogenic back pain and lower extremity pain Neuroforaminal stenosis of lumbosacral spine M48.07 Asthma, unspecified asthma severity, unspecified whether complicated, unspecified whether persistent J45.909 Asthma complication type: unspecified Asthma persistence: unspecified Asthma severity: unspecified severity Sebaceous cyst L72.3 Time Spent (min) 36 Assessment & Plan Assessment & Plan (1) Elevated blood pressure reading without diagnosis of hypertension: Code(s): R03.0 - Elevated blood-pressure reading, without diagnosis of hypertension Category: Medical Plan: Blood pressure was 140/76 Reinforced low-salt diet We will continue to monitor (2) Right adrenal mass: Code(s): E27.8 - Other specified disorders of adrenal gland Category: Medical Plan: The patient adrenal right masses suggestive of benign adenoma. He was sent to endocrine who saw him on the 03/29/25 with plans to rule out hyper secretion (3) Anemia: Code(s): D64.9 - Anemia, unspecified Category: Medical Qualifiers: Anemia type: unspecified type Qualified Code(s): D64.9 - Anemia, unspecified Plan: Chronic anemia which came back stable on his previous labs We will continue to monitor (4) Muscle spasm of back: Code(s): M62.830 - Muscle spasm of back Category: Medical Plan: Continue gabapentin 300 mg t.i.d. p.r.n. Follow up with pain management as scheduled (5) Spondylolisthesis, lumbosacral region: Code(s): M43.17 - Spondylolisthesis, lumbosacral region Category: Medical Plan: Continue cyclobenzaprine 10 mg at bedtime p.r.n., gabapentin 300 mg t.i.d. p.r.n. and naproxen 500 mg b.i.d. p.r.n. Follow up with pain management as scheduled (6) Lumbar degenerative disc disease: Code(s): M51.36 - Other intervertebral disc degeneration, lumbar region Category: Medical Qualifiers: Disc-related pain type: discogenic back pain and lower extremity pain Qualified Code(s): M51.362 - Other intervertebral disc degeneration, lumbar region with discogenic back pain and lower extremity pain Plan: Continue cyclobenzaprine 10 mg at bedtime p.r.n., gabapentin 300 mg t.i.d. p.r.n. and naproxen 500 mg b.i.d. p.r.n. Follow up with pain management as scheduled (7) Neuroforaminal stenosis of lumbosacral spine: Code(s): M48.07 - Spinal stenosis, lumbosacral region Category: Medical Plan: Patient was seen by neuro spine on 06/06/2023. No surgical interventions were recommended. Patient to continue his conservative interventions because his herniated disc has started absorbing Continue cyclobenzaprine 10 mg at bedtime p.r.n., gabapentin 300 mg t.i.d. p.r.n. and naproxen 500 mg b.i.d. p.r.n. Follow up with pain management as scheduled (8) Asthma: Code(s): J45.909 - Unspecified asthma, uncomplicated Category: Medical Qualifiers: Asthma complication type: unspecified Asthma persistence: unspecified Asthma severity: unspecified severity Qualified Code(s): J45.909 - Unspecified asthma, uncomplicated Plan: Lifestyle modifications like smoking cessation. Wear a mask when around irritants, fumes, or particulate matter (e.g., painting, lawn mowing). Increase humidification at home, especially in the winter. Annual flu shots and the pneumonia shot can mitigate exacerbation. Increase fluids if not contraindicated because of heart failure. Continue albuterol sulfate 90 mcg/actuation 2 puffs q.i.d. p.r.n. (9) Sebaceous cyst: Code(s): L72.3 - Sebaceous cyst Category: Medical Plan: Right elbow- US ordered to further evaluate
== END 2025-04-25 15:21 | disposition home or self-care (01) ==
LOC: HO.HMCH 14:33
DX: R03.0 Elevated blood-pressure reading, without diagnosis of hypertension (principal); E27.8 Other specified disorders of adrenal gland; D64.9 Anemia, unspecified; M62.830 Muscle spasm of back; M43.17 Spondylolisthesis, lumbosacral region; M51.362 Other intervertebral disc degeneration, lumbar region with discogenic back pain and lower extremity pain; M48.07 Spinal stenosis, lumbosacral region; J45.909 Unspecified asthma, uncomplicated; L72.3 Sebaceous cyst

== ENCOUNTER → 2025-04-25 14:32 | Outpatient (BNVA) | payer MEDICAID, SELFPAY | DX: M43.17 Spondylolisthesis, lumbosacral region (principal); M62.830 Muscle spasm of back; M51.362 Other intervertebral disc degeneration, lumbar region with discogenic back pain and lower extremity pain; M48.07 Spinal stenosis, lumbosacral region; R03.0 Elevated blood-pressure reading, without diagnosis of hypertension; E27.8 Other specified disorders of adrenal gland; D64.9 Anemia, unspecified; J45.909 Unspecified asthma, uncomplicated; L72.3 Sebaceous cyst; Z13.31 Encounter for screening for depression; Z13.39 Encounter for screening examination for other mental health and behavioral disorders | CPT/HCPCS: 99212 ==

== ENCOUNTER 2025-05-16 12:57 | Outpatient (AMB) | payer MEDICAID, SELFPAY ==
--- OUTSIDE RECORDS SUMMARY | 2025-04-04 07:00 | XMS_ITS ---
Author Organization [facility] Address [address] [place], [place] [phone] Care Team Providers Care Library Helper Name Role Phone [facility] Primary Care Provider Merly Calderon Unavailable [phone] REASON FOR VISIT Housing Encounters Encounter Location Date Provider Diagnosis [facility] [address] [place], [place] [phone] 04/04/2025 Merly Calderon Plan Of Treatment No Information Progress Notes * Abdirahman SCOTTDOB:1965 (59 yo M)Acc No.[id number]:04/04/2025 Case Management Patient: Abdirahman ESPOSITO Provider: Crystal Calderon :1965 A ge:59 Y S ex:Male Date:04/04/2025 Address:[address] [facility] Pcp:[facility] Subjective: * Chief Complaints: * 1 . Housing. * Medical History: Objective: Assessment: Plan: * Treatment: * Images: Billing Information: * Visit Code: * Procedure Codes: Care Plan Details* * Electronic signature of Gavin Calderon on 05/16/2025 at 02:05 PM EDT Sign off status: Pending * Provider: Crystal Calderon Date: 04/04/2025 Generated for Katia gomes/Omega/Antwan on: 05/16/2025 02:05 PM EDT
[2025-05-16 13:00] VITALS: BP 168/90; PULSE 85; RESP 18; TEMP 36.2; O2SAT 94; BMI 27.3
--- NOTE | 2025-05-16 13:00 | A.OFFPC_ITS ---
Vital Signs 05/16/25 13:00 Height 5 ft 7 in Weight 174 lb 6 oz BMI 27.3 BP 168/90 H Blood Pressure Location Lt brachial Position Sitting Respiration 18 Pulse 85 Pulse Source Pulse Oximeter Temp 97.1 F Temp Source Temporal Artery Scan Pulse Oximetry (%) 94 Oxygen Delivery Method Room Air Intake Visit Reasons: anemia/elevated blood pressure/low back pain Call Center Assistant Required: Yes Call Center Assistant Name: christy [id number] Accompanied by: Self / Same As Patient Allergies No Known Allergies (No Known Allergies*) Allergy (Verified 05/16/25 13:18) Medication List - Last Reconciled 05/16/25 by KIYA Rubalcava albuterol sulfate 90 mcg/actuation (Ventolin HFA) 2 puffs PO QID PRN blood pressure test kit-large As directed once daily fexofenadine (Radha Allergy) 180 mg PO DAILY fluticasone propionate 50 mcg/actuation (Allergy Relief (fluticasone)) 1 spray intranasal DAILY gabapentin 300 mg PO TID PRN 30 days hydroxyzine HCl 25 mg PO BID ibuprofen 600 mg PO TID iron,carbonyl-vitamin C 65 mg iron- 125 mg (Vitron-C) 1 tab PO DAILY melatonin 3 mg PO BEDTIME methadone (Methadone Intensol) 115 mg PO DAILY triamcinolone acetonide 0.5% 1 appl topical TID [tub seat As directed] [walker As directed] Tobacco use date assessed: 05/16/25 Dental Screening Dental Screen Date: 05/16/25 Did you have a dental visit in the last 12 months?: No Did you have a dental problem in the last 6 months where you did not have access to dental care?: No Was dental information given to patient?: No HPI anemia/elevated blood pressure/low back pain HPI Details The patient is a 59-year-old male presenting with elevated blood pressure and a request for a colonoscopy referral. The patient reports a history of elevated blood pressure, which required two visits to the emergency room due to significant elevations. He has been monitoring his blood pressure at home and notes that it remains elevated, though he has not been taking any specific actions to manage it. There is a concern by the patient that the elevated blood pressure may be related to a kidney mass, which was found incidentally and does not cause any symptoms. The patient is currently not on any antihypertensive medication but has been advised to start on a low-dose medication to manage his blood pressure. He is also advised to continue monitoring his blood pressure at home and report if it remains above 140 mmHg. The patient requested a referral for a colonoscopy, which he last underwent 6 or 7 years ago. He does not recall any polyps being found during the previous procedure. The patient is requesting to be referred for a colonoscopy. He is also requesting for disability paperwork to be filled out. [facility] Medical History IV drug user Lumbar radiculopathy, right Low back pain History of osteomyelitis Asthma Skin lesion Surgical History History of inguinal hernia repair Family History Father No problems noted. Mother Advanced cardiac disease Dementia in Alzheimer's disease Mental health disorder Social History Housing: Homeless Alcohol intake: never Patient Tobacco Use Status: Current everyday Tobacco user Tobacco use type: Cigarette Cigarette Packs Per Day: 0.5 Cigarettes Per Day: 3 e-Cigarette/Vaping Use: Former Use Second Hand Smoke Exposure: Yes Substance Use Type: Heroin service: No Current occupational status: employed Cognitive needs: Yes (Cane) Hearing needs: No Vision needs: Yes (Glasses) Questionnaire PHQ-9 Over the last 2 weeks, how often have you been bothered by any of the following problems? 1. Little interest or pleasure in doing things: more than half the days 2. Feeling down, depressed, or hopeless: more than half the days 3. Trouble falling or staying asleep, or sleeping too much: more than half the days 4. Feeling tired or having little energy: more than half the days 5. Poor appetite or overeating: more than half the days 6. Feeling bad about yourself - or that you are a failure or have let yourself or your family down: more than half the days 7. Trouble concentrating on things, such as reading the newspaper or watching television: more than half the days 8. Moving or speaking so slowly that other people could have noticed. Or the opposite - being so fidgety or restless that you have been moving around a lot more than usual: more than half the days 9. Thoughts that you would be better off or of hurting yourself in some way: not at all Total score: 16 Depression Screening Interpretation: Positive Depression Screening Done: Yes Source: Developed by Drs. Rambo Du, Priyanka Madden, Kapil Sandra and colleagues, with an educational lakeisha from [employer]. Thrive Questionnaire Date Thrive assessed: 05/16/25 I am a: Patient What is your living situation today?: I have a steady place to live Within the past 12 months, did the food you bought not last and you didn't have the money to get more?: Never true Within the past 12 months, did you worry whether your food would run out before you got money to buy more?: Sometimes True Do you have trouble paying for medicines?: No Do you have trouble getting transportation to medical appointments?: No Do you have trouble paying your heating and electricity bill?: No Do you have trouble taking care of your child, family member or friend?: Yes Do you have trouble with day-to-day activities such as bathing, preparing meals, shopping, managing finances, etc.?: Yes Are you currently unemployed and looking for a job?: Yes Are you interested in more education?: Yes Please select the resources that you would like help with: Housing/Chcf Currently or been in a relationship where the following occur: No concerns reported THRIVE Score: 1 AUDIT C Alcohol Use Questionnaire (AUDIT-C) 1. How often do you have a drink containing alcohol?: Never 3. How often do you have six or more drinks on one occasion?: Never Total Score: 0 EMANUEL-7 AMB Questionnaire EMANUEL-7 Date EMANUEL - 7 assessed: 05/16/25 Feeling nervous, anxious, or on edge: 1 = Several days Not being able to stop or control worryin = More than half the days Worrying too much about different things: 2 = More than half the days Trouble relaxin = More than half the days Being so restless that it is hard to sit still: 2 = More than half the days Becoming easily annoyed or irritable: 2 = More than half the days Feeling afraid as if something awful might happen: 0 = Not at all Total EMANUEL-7 score (0-4 normal; 5-9 mild; 10-14 moderate; 15-21 severe): 11 Source: Developed by Drs. Rambo Du, Priyanka Madden, Kapil Sandra and colleagues, with an educational lakeisha from [employer]. Review of Systems Const Denies headache(s) Eyes Denies loss of vision ENT Denies vertigo, Denies dizziness, Denies headache(s) and Denies sore throat Card Denies chest pain, Denies leg edema and Denies lightheadedness Resp Denies cough, Denies hemoptysis and Denies wheezing GI Denies abdominal pain, Denies melena, Denies constipation, Denies diarrhea and Denies vomiting Denies dysuria, Denies urinary frequency and Denies urinary urgency Musc Reports back pain, Reports arthralgias (Right hip), Denies joint swelling, Denies numbness, Reports radiating pain into limb (Right leg) and Denies tingling Neuro Denies Abnormal speech present, Denies behavioral changes, Denies vertigo, Denies dizziness, Denies headache(s), Denies loss of vision, Denies memory loss, Denies numbness and Denies tingling Psych Denies anxiety, Denies behavioral changes, Denies depression, Denies memory loss and Denies panic attacks Bryan/Lymph Denies easy bleeding and Denies easy bruising Aller/Immun Denies wheezing Physical exam (Primary Care) Vital Signs: Last Vital Signs Temp 97.1 F 05/16/25 13:00 Pulse 85 05/16/25 13:00 Resp 18 05/16/25 13:00 BP 168/90 H 05/16/25 13:00 Pulse Ox 94 05/16/25 13:00 Oxygen Delivery Method Room Air 05/16/25 13:00 BMI result Body Mass Index 27.3 Tobacco/Smoking Status: Tobacco use Status Tobacco use date assessed 05/16/25 05/16/25 13:10 Patient Tobacco Use Status Current everyday Tobacco 05/16/25 13:10 Tobacco use type Cigarette 05/16/25 13:10 e-Cigarette/Vaping Use Former Use 05/16/25 13:10 PHQ-9: PHQ-9 Score PHQ-9: Total score 16 05/16/25 13:17 Depression Screening Interpretation: Positive Thrive Assessment: Date of Thrive Assessment Date Thrive assessed 05/16/25 05/16/25 13:10 Currently or been in a relationship where the following occur: No concerns reported Const General: healthy appearing, no acute distress, alert and awake Nutritional Appearance: well nourished Orientation/consciousness: oriented to person, oriented to place and oriented to time HENMT Ears: TM's normal bilaterally General nose exam: Normal nasal mucous membranes and turbinates present Eyes Conjunctivae: conjunctivae normal Sclerae: sclerae normal Pupils: Equal, round and reactive pupils present Neck Neck: Yes no lymphadenopathy and Yes no JVD Thyroid: Thyroid normal Carotids: no bruits Resp Effort & Inspection: normal respiratory effort and not tachypneic Auscultation: no crackles, no rales, no rhonchi and no wheezes Cardio Rate: regular rate Rhythm: regular rhythm Heart sounds: no murmurs and normal S1 and S2 GI Palpation (GI): Soft to palpation, nontender, no hepatomegaly and no splenomegaly Auscultation: normal bowel sounds Back/Spine/Pelvis Thoracic/Lumbar Spine: No lumbar spinal tenderness Pelvis: buttock tenderness on the right and sciatic notch tenderness Skin General skin exam: no rashes or lesions noted and dry skin Neuro General: oriented to person, oriented to place and oriented to time Cranial nerves: Yes Equal, round and reactive pupils present Speech: No Abnormal speech present Gait exam (Neuro): Antalgic gait present, Assistive device used (Cane) and Other gait observations present Motor exam (neuro): no tremor noted Extrem Right upper extremity: full ROM Left upper extremity: full ROM Right lower extremity: full ROM; no edema Left lower extremity: full ROM; no edema Psych Mental Status: mental status grossly normal Speech and movement: Normal speech and movement present Affect: normal affect Attitude: cooperative Thought process: Normal thought process present Coding Level of Care Code Est Pt Level 4 (17081) Diagnoses Elevated blood pressure reading without diagnosis of hypertension R03.0 Right adrenal mass E27.8 Bilateral sciatica M54.31; M54.32 Laterality: bilateral Chronic right-sided low back pain with right-sided sciatica M54.41; G89.29 Chronicity: chronic Back pain laterality: right Sciatica presence: with sciatica Sciatica laterality: sciatica of right side Time Spent (min) 38 Assessment & Plan Assessment & Plan (1) Elevated blood pressure reading without diagnosis of hypertension: Code(s): R03.0 - Elevated blood-pressure reading, without diagnosis of hypertension Category: Medical Plan: Elevated blood pressure at 168/90. The patient reports that he is under tremendous stress and discomfort that might be driving his blood pressure. However, the patient has multiple blood pressure in chart that noted to be elevated. We will start the patient on amlodipine 5 mg daily. Patient to return in 1 month for blood pressure check by nurse. Reinforced low-salt diet and activity as tolerated. (2) Right adrenal mass: Code(s): E27.8 - Other specified disorders of adrenal gland Category: Medical Plan: The patient is concern about his adrenal mass, reports that it is the uncertainty of what is going to come of it. Current imaging suggest of benign adenoma. However, the patient he has been seen by Endocrine to rule out hyper- secretion capabilities. (3) Sciatica: Code(s): M54.30 - Sciatica, unspecified side Category: Medical Qualifiers: Laterality: bilateral Qualified Code(s): M54.31 - Sciatica, right side; M54.32 - Sciatica, left side Plan: Patient continues to complain about sciatica pain on the right side. Continue gabapentin 300 mg t.i.d. p.r.n., ibuprofen 600 mg t.i.d. prn. Follow up with pain management as scheduled. (4) Low back pain: Code(s): M54.50 - Low back pain, unspecified Category: Medical Qualifiers: Chronicity: chronic Back pain laterality: right Sciatica presence: with sciatica Sciatica laterality: sciatica of right side Qualified Code(s): M54.41 - Lumbago with sciatica, right side; G89.29 - Other chronic pain Plan: Avoid bed rest (including sitting in bed) and to simply limit painful activities; improvement usually occurs within a few weeks May use cool packs; may alternate cold and hot packs Exercises a yeung (e.g., walking, swimming, cycling) as soon as possible, starting with 5-10 min and walk-in up to 20-30 minute q.day Abdominal core and back strengthening exercises may help to prevent future problems Continue 300 mg of gabapentin t.i.d. p.r.n. and ibuprofen 600 mg t.i.d. p.r.n.. Follow up with pain management as scheduled. Plan The patient will begin a low-dose antihypertensive medication to manage his elevated blood pressure. He is instructed to monitor his blood pressure at home and report if it remains above 140 mmHg. A referral for a colonoscopy has been made, given the patient's history of a procedure 6-7 years ago without findings of polyps. Patient was informed and verbally consented to the use of an ambient scribe for clinic note documentation during this visit. Orders: Orders TSH reflex Free T4 3 Months D64.9 - Anemia, unspecified, E27.8 - Other specified disorders of adrenal gland, N28.1 - Cyst of kidney, acquired, N50.819 - Testicular pain, unspecified, R03.0 - Elevated blood-pressure reading, without diagnosis of hypertension Complete Blood Count Auto Diff 3 Months D64.9 - Anemia, unspecified, E27.8 - Other specified disorders of adrenal gland, N28.1 - Cyst of kidney, acquired, N50.819 - Testicular pain, unspecified, R03.0 - Elevated blood-pressure reading, without diagnosis of hypertension Comprehensive [place]. Panel Fast 3 Months D64.9 - Anemia, unspecified, E27.8 - Other specified disorders of adrenal gland, N28.1 - Cyst of kidney, acquired, N50.819 - Testicular pain, unspecified, R03.0 - Elevated blood-pressure reading, without diagnosis of hypertension UA CC w/rflx Micro + Cult 3 Months D64.9 - Anemia, unspecified, E27.8 - Other specified disorders of adrenal gland, N28.1 - Cyst of kidney, acquired, N50.819 - Testicular pain, unspecified, R03.0 - Elevated blood-pressure reading, without diagnosis of hypertension Referrals Gastroenterology Referral Z12.11 - Encounter for screening for malignant neoplasm of colon, Z12.12 - Encounter for screening for malignant neoplasm of rectum Medications: New amlodipine 5 mg PO DAILY 90 tabs 3RF
== END 2025-05-16 13:48 | disposition home or self-care (01) ==
LOC: HO.HMCH 12:58
DX: R03.0 Elevated blood-pressure reading, without diagnosis of hypertension (principal); E27.8 Other specified disorders of adrenal gland; M54.32 Sciatica, left side; M54.41 Lumbago with sciatica, right side; G89.29 Other chronic pain

== ENCOUNTER → 2025-05-16 12:57 | Outpatient (BNVA) | payer MEDICAID, SELFPAY | DX: R03.0 Elevated blood-pressure reading, without diagnosis of hypertension (principal); E27.8 Other specified disorders of adrenal gland; M54.32 Sciatica, left side; M54.41 Lumbago with sciatica, right side; G89.29 Other chronic pain | CPT/HCPCS: 99212 ==

== ENCOUNTER 2025-05-18 11:15 | Outpatient (REF) | payer MEDICAID, SELFPAY ==
--- OUTSIDE RECORDS SUMMARY | 2025-04-04 07:00 | XMS_ITS ---
Author Organization [facility] Address [address], [place] [phone] Care Team Providers Care Mold Insert Changer Name Role Phone [facility] Primary Care Provider [phone] eMrly Calderon Unavailable [phone] REASON FOR VISIT Housing Encounters Encounter Location Date Provider Diagnosis [facility] [address] [place], [place] [phone] 04/04/2025 Merly Calderon Plan Of Treatment No Information Progress Notes * Abdirahman SCOTTDOB:1965 (59 yo M)Acc No.[id number]:04/04/2025 Case Management Patient: Abdirahman ESPOSITO Provider: Crystal Calderon :1965 A ge:59 Y S ex:Male Date:04/04/2025 Address:[address] [facility] Pcp:[facility] Subjective: * Chief Complaints: * 1 . Housing. * Medical History: Objective: Assessment: Plan: * Treatment: * Images: Billing Information: * Visit Code: * Procedure Codes: Care Plan Details* * Electronic signature of Gavin Calderon on 05/18/2025 at 12:58 PM EDT Sign off status: Pending * Provider: Crystal Calderon Date: 04/04/2025 Generated for Katia gomes/Omega/Antwan on: 05/18/2025 12:58 PM EDT
[2025-05-18 12:22] LABS: Creatinine, mg/dL 142.03
[2025-05-18 12:32] LABS: Total Volume 24 Hour Urine 1625 mL
[2025-05-25 16:08] LABS: Metanephrine, Free 24U 238 mcg/24 h (90-315); Normetanephrine, Free 24U 463 mcg/24 h (122-676); Total Metanephrine, Free 24U 701 mcg/24 h (224-832); Total Volume 24U 1625 mL
== END 2025-05-18 11:16 | disposition home or self-care (01) ==
LOC: HO.LNP 11:15
PROVIDERS: Visit Provider Internal Medicine Endocrinology, Diabetes & Metabolism
DX: E27.8 Other specified disorders of adrenal gland (principal)
CPT/HCPCS: 82570; 83835

== ENCOUNTER 2025-05-26 11:05 | Outpatient (AMB) | payer MEDICAID, SELFPAY ==
--- OUTSIDE RECORDS SUMMARY | 2025-04-04 07:00 | XMS_ITS ---
Author Organization [facility] Address [address] [place], [place] [phone] Care Team Providers Care Auto Claim Representative Name Role Phone [facility] Primary Care Provider Merly Calderon Unavailable [phone] REASON FOR VISIT Housing Encounters Encounter Location Date Provider Diagnosis [facility] [address] [place], [place] [phone] 04/04/2025 Merly Calderon Plan Of Treatment No Information Progress Notes * Abdirahman SCOTTDOB:1965 (59 yo M)Acc No.[id number]:04/04/2025 Case Management Patient: Abdirahman ESPOSITO Provider: Crystal Calderon :1965 A ge:59 Y S ex:Male Date:04/04/2025 Address:[address] [facility] Pcp:[facility] Subjective: * Chief Complaints: * 1 . Housing. * Medical History: Objective: Assessment: Plan: * Treatment: * Images: Billing Information: * Visit Code: * Procedure Codes: Care Plan Details* * Electronic signature of Gavin Calderon on 05/26/2025 at 11:49 AM EDT Sign off status: Pending * Provider: Crystal Calderon Date: 04/04/2025 Generated for Katia gomes/Omega/Antwan on: 05/26/2025 11:49 AM EDT
--- NOTE | 2025-05-26 11:27 | A.OFFVIS_ITS ---
Intake Visit Reasons: renal cysts Intake Note: patient presents today for: new pt visit renal cysts urology medications: none blood thinners: none Computer Aided Design Designer Required: Yes Computer Aided Design Designer Services: Computer Aided Design Designer Present Accompanied by: Spouse Allergies No Known Allergies (No Known Allergies*) Allergy (Verified 05/26/25 11:29) [facility] Medical History IV drug user Lumbar radiculopathy, right Low back pain History of osteomyelitis Asthma Skin lesion Surgical History History of inguinal hernia repair Family History Father No problems noted. Mother Advanced cardiac disease Dementia in Alzheimer's disease Mental health disorder Social History Housing: Homeless Alcohol intake: never Patient Tobacco Use Status: Current everyday Tobacco user Tobacco use type: Cigarette Cigarette Packs Per Day: 0.5 Cigarettes Per Day: 3 e-Cigarette/Vaping Use: Former Use Second Hand Smoke Exposure: Yes Substance Use Type: Heroin service: No Current occupational status: employed Cognitive needs: Yes (Cane) Hearing needs: No Vision needs: Yes (Glasses) Results AMB Urinalysis, Automated UA Leukoctes 0 Almita/uL Last Edit by CHANTEL Mera on 05/26/25 11:42 UA Nitrite Negative Last Edit by CHANTEL Mera on 05/26/25 11:42 UA Urobilinogen 3.5 mg/dL Last Edit by CHANTEL Mera on 05/26/25 11:4 2 UA Protein 15 mg/dL Last Edit by CHANTEL Mera on 05/26/25 11:42 UA pH 5.5 Last Edit by CHANTEL Mera on 05/26/25 11:42 UA Blood 0 Josh/uL Last Edit by CHANTEL Mera on 05/26/25 11:42 UA Specific Champion 1.030 Last Edit by CHANTEL Mera on 05/26/25 11: 42 UA Ketone Negative Last Edit by CHANTEL Mera on 05/26/25 11:42 UA Bilirubin 0 mg/dL Last Edit by CHANTEL Mera on 05/26/25 11:42 UA Glucose 0 mg/dL Last Edit by CHANTEL Mera on 05/26/25 11:42 Results Reviewed Results Reviewed: Laboratory Last Values Urine pH (Auto) 5.5 05/26/25 11:41 Specific Champion (Auto) 1.030 05/26/25 11:41 Urine Protein (Auto) 15 mg/dL 05/26/25 11:41 Glucose (UA)(Auto) 0 mg/dL 05/26/25 11:41 Urine Ketones (Auto) Negative 05/26/25 11:41 Urine Blood (Auto) 0 Josh/uL 05/26/25 11:41 Urine Nitrite (Auto) Negative 05/26/25 11:41 Urine Bilirubin (Auto) 0 mg/dL 05/26/25 11:41 Urine Urobilinogen (Auto) 3.5 mg/dL 05/26/25 11:41 Leukocyte Esterase (Auto) 0 Almita/uL 05/26/25 11:41 Date of Service: 03/16/25 Procedure(s): CT abdomen wo/w IV con Accession Number(s): [id number] cc: Adam Loyola~ Report Number: [id number]: Total DLP = 580.00 mGy-cm EXAMINATION: CT ABDOMEN WITHOUT AND WITH CONTRAST CLINICAL INFORMATION: Other specified disorders adrenal glands. COMPARISON: Correlated to MRI lumbar spine dated February 14, 2025. TECHNIQUE: Contiguous axial thin section helical images of the abdomen were performed before and after the administration of 85 mL of Omnipaque 350 intravenous contrast. Examination performed at the portal venous and delayed phases. The data set was reformatted in the coronal and sagittal planes and reviewed on an independent workstation. No reported immediate complications. This CT examination was performed using dose optimization techniques as appropriate, variously including the following: *Automated exposure control *Adjustment of mA and/or kV according to patient size (this includes techniques or standardized protocols for targeted exams where dose is matched to indication/reason for exam; i.e. extremities or head) *Use of iterative reconstruction technique DLP: 580 mGy centimeter. FINDINGS: LUNG BASES: No acute airspace disease. No gross pulmonary nodules. LIVER, GALLBLADDER, AND BILIARY TREE: Liver measures 16 cm. Punctate calcifications in the right hepatic lobe likely granuloma. No focal enhancing mass. Portal veins, hepatic veins and intrahepatic portion of the IVC are patent. No intrahepatic biliary ductal dilatation. No pericholecystic fluid collection or gallbladder wall thickening. Common bile duct measures 4 mm. PANCREAS: No focal lesion. No main pancreatic ductal dilatation. No peripancreatic fluid collections. SPLEEN: 8 cm. No focal lesion. ADRENAL GLANDS AND KIDNEYS: There is an 8 mm low density nodule which measures -11 Hounsfield units in the noncontrast phase. No nodular lesions in the left adrenal gland. Right kidney: No hydronephrosis. No nephrolithiasis. 8 mm nonenhancing fluid density, posterior midportion. Normal urinary excretion into the collecting system. Left kidney: No hydronephrosis. No nephrolithiasis. No enhancing mass. Normal urinary excretion into the collecting system. BOWEL LOOPS: Abundant stool, large intestine. No intestinal obstruction pattern. No pneumatosis intestinalis. No intestinal thickening. Appendix is normal. No ascites. No pneumoperitoneum. LYMPH NODES: No gross lymphadenopathy, mesenteric and retroperitoneum. VASCULAR: No aneurysm or dissection, abdominal aorta. Calcified plaques in the descending thoracic aorta suprarenal abdominal aorta dissection. Calcified plaques in the origin of the superior mesenteric artery and celiac trunk.. BONES: Marginal osteophyte formation and endplate sclerosis subchondral cyst formation and decreased intervertebral disc height and vacuum phenomenon at L3-4 and to a lesser extent L5-S1 and L4-5 levels. Grade 1 anterolisthesis L5-S1 secondary to spondylolysis pars interarticularis. Dextroconvex curvature of the thoracolumbar junction. CT/CT abdomen wo/w IV con IMPRESSION: 8 mm lipid rich adenoma, right adrenal gland. Bosniak type I cyst, right kidney. Spondylosis L3-4 L4-5 and L5-S1. Spondylolysis pars interarticularis L5-S1 resulting grade 1 anterolisthesis Assessment & Plan Assessment & Plan (1) Renal cyst: Code(s): N28.1 - Cyst of kidney, acquired Category: Medical (2) Adrenal nodule: Code(s): E27.9 - Disorder of adrenal gland, unspecified Category: Medical Orders: Orders AMB Urinalysis Automated Today Z13.9 - Encounter for screening, unspecified US renal BI 6 Months E27.9 - Disorder of adrenal gland, unspecified, N28.1 - Cyst of kidney, acquired Coding Diagnoses Renal cyst N28.1 Adrenal nodule E27.9
--- OUTSIDE RECORDS SUMMARY | 2025-05-26 11:49 | XMS_ITS | Clinical Summary ---
Author Organization [employer] Address [address] [place] [address] [address] [place] [address] Care Team Providers Care Business Intelligence Etl Developer Name Role Phone Unavailable Primary Care Provider Unavailabl e Immunizations Immunization Administration Dates Next Due Hep A, Adult 12/14/2019 Moderna Covid-19 Vaccine 12+ 10/15/2021 Pfizer Covid-19 Vaccine 12+ 11/27/2020, Pfizer Covid-19 Vaccine 12+ Bivalent 11/18/2022 Social History Tobacco Use Types Packs/Day Years Used Date Smoking Tobacco: Never Assessed Sex and Gender Information Value Date Recorded Sex Assigned at Male 07/28/2022 10:27 AM EDT Legal Sex Male 10:27 AM EDT Gender Identity Male 11/18/2022 2:11 PM EST Sexual Orientation Straight 11/18/2022 2: 11 PM EST Plan of Treatment Upcoming Encounters Date Type Department Care Team (Late st Contact Info) Description 06/28/2025 3:00 PM EDT Office Visit [facility] [address] [place] [address] Steve Grijalva, NUSRAT [address] [place] [address] Health Maintenance Due Date Last Done Comments CT Colonography 1966 Colonoscopy 1966 Colorectal Cancer Screening 1966 Depression Screening 1966 FIT DNA/Cologuard 1966 FIT 1966 FOBT 1966 HIV Screening 1966 Lipid Panel 1966 SDOH Screening 1966 Sigmoidoscopy 1966 Disability Screening 1966 Alcohol/Substance Use Screening 1978 Tobacco Screening 1978 Hepatitis B Vaccines (1 of 3 - 19+ 3-dose series) 1985 Zoster Vaccines (1 of 2) 2016 Hepatitis A Vaccines (2 of 2 - Risk 2-dose series) 06/15/2020 12/14/2019 DTaP/Tdap/Td Vaccines (2 - Td or Tdap) 11/30/2023 11/29/2013 Influenza Vaccine (#1) 2025 RSV Patients and Patients Aged 60 years or older (1 - 1-dose 75+ series) 2041 COVID-19 Vaccine Completed 10/12/2024, , 10/15/2021, Additional history exists Pneumococcal Vaccine: 50+ Years Completed 10/12/2024, 09/10/2015, 11/29/2013 HIB Vaccines Aged Out No longer eligi ble based on patient's age to complete this topic HPV Vaccines Aged Out No longer eligi ble based on patient's age to complete this topic IPV Vaccines Aged Out No longer eligi ble based on patient's age to complete this topic Meningococcal B Vaccine Aged Out No l onger eligible based on patient's age to complete this topic Meningococcal Vaccine Aged Out No janny kierra eligible based on patient's age to complete this topic RSV under 20 months Aged Out No longe r eligible based on patient's age to complete this topic Rotavirus Vaccines Aged Out No longer eligible based on patient's age to complete this topic [place] [address] [address] [place] [address] STANDARD [facility] MEDICAID STAND ADULT
--- OUTSIDE RECORDS SUMMARY | 2025-05-26 11:50 | XMS_ITS | Patient Health Record ---
Author Organization [facility] Address [address], [place] [id number] Care Team Providers Care Enterprise Cloud Architect Name Role Phone [facility] Primary Care Provider Merly Calderon [facility] Reason For Referral No Information Encounters Encounter Location Date Provider Diagnosis [facility] [address], [place] [phone] 03/29/2025 Merly Calderon Plan Of Treatment No Information Insurance Providers Payer Name Payer Address Payer Phone Subscriber Number Group Number Insured Name Patient Relationship to Insured Coverage Start Date Coverage End Date [place] [address] [place] [phone] Abdirahman Garcia Self - patient is the insured
== END 2025-05-26 12:07 | disposition home or self-care (01) ==
LOC: HO.HUSH 11:06
PROVIDERS: Visit Provider Urology
DX: Z13.9 Encounter for screening, unspecified (principal)

== ENCOUNTER → 2025-05-26 11:05 | Outpatient (BNVA) | payer MEDICAID, SELFPAY | PROVIDERS: Visit Provider Urology | DX: N28.1 Cyst of kidney, acquired (principal); E27.9 Disorder of adrenal gland, unspecified; Z13.9 Encounter for screening, unspecified | CPT/HCPCS: 81003; 99202 ==

== ENCOUNTER 2025-07-06 13:54 | Outpatient (REF) | payer MEDICAID, SELFPAY ==
--- NOTE | ~2025-07-06 | US_ITS ---
Examination: Ultrasound extremity nonvascular, limited right TECHNIQUE: Grayscale imaging was performed in the region of the right elbow INDICATION: L72.3 - Sebaceous cyst FINDINGS: Anatomic structures are identified in the region of the right elbow were the patient palpates a mass. No visualized mass, fluid collection, or other abnormalities detected. US/US Extremity Nonvas Limited RT IMPRESSION: No visible mass detected by ultrasound. Electronically signed by: Abhinav Cochran MD 07/06/2025 02:36 PM EDT
== END 2025-07-06 13:55 | disposition home or self-care (01) ==
LOC: HO.US 13:54
DX: L72.3 Sebaceous cyst (principal)
CPT/HCPCS: 76882

== ENCOUNTER → 2025-07-06 13:56 | Outpatient (BNV) | payer MEDICAID, SELFPAY | PROVIDERS: Visit Provider Radiology Diagnostic Radiology | DX: L72.3 Sebaceous cyst (principal) | CPT/HCPCS: 76882 ==

== ENCOUNTER 2025-08-03 13:17 | Outpatient (AMB) | payer MEDICAID, SELFPAY ==
--- OUTSIDE RECORDS SUMMARY | 2025-04-04 06:00 | XMS_ITS ---
Author Organization [facility] Address [address] [place] [address] Care Team Providers Care Clinical Trial Specialist Name Role Phone [facility] Primary Care Provider Merly Calderon Unavailable REASON FOR VISIT Housing Encounters Encounter Location Date Provider Diagnosis [facility] [address] [place], [place] [phone] 04/04/2025 Merly Calderon Plan Of Treatment No Information Progress Notes * Abdirahman GARCIADOB:1965 (60 yo M)Acc No.[id number]:04/04/2025 Case Management Patient: Abdirahman ESPOSITO Provider: Crystal Calderon :1965 A ge:59 Y S ex:Male Date:04/04/2025 Address:[address] [facility] Pcp:[facility] Subjective: * Chief Complaints: * 1 . Housing. * Medical History: Objective: Assessment: Plan: * Treatment: * Images: Billing Information: * Visit Code: * Procedure Codes: Care Plan Details* * Electronic signature of Gavin Calderon on 08/03/2025 at 04:09 PM EST Sign off status: Pending * Provider: Crystal Calderon Date: 0 04/04/2025 Generated for Katia gomes/Omega/Antwan on: 10/03/2024 04:09 PM EST
[2025-08-03 13:19] VITALS: BP 148/88; PULSE 83; O2SAT 97; BMI 28.0
--- NOTE | 2025-08-03 13:19 | MHC.OFFVIS ---
Vital Signs 08/03/25 13:19 Height 5 ft 7 in Weight 178 lb 12.718 oz BMI 28.0 BP 148/88 H Blood Pressure Location Lt brachial Position Sitting Pulse 83 Pulse Source Pulse Oximeter Pulse Oximetry (%) 97 Oxygen Delivery Method Room Air Intake Visit Reasons: Other specified disorders of adrenal gland Intake Note: Patient present today for disorders of Adrenal gland. Heating And Ventilation Engineer Required: Yes Heating And Ventilation Engineer Language: Business Performance Advisor Services: Heating And Ventilation Engineer Present Heating And Ventilation Engineer Name: Maureen Information Interpreted: non-clinical & clinical Accompanied by: Self / Same As Patient Allergies No Known Allergies (No Known Allergies*) Allergy (Verified 08/03/25 13:24) Medication List - Last Reconciled 08/03/25 by Rambo Lang MD albuterol sulfate 90 mcg/actuation (Ventolin HFA) 2 puffs PO QID PRN amlodipine 5 mg PO DAILY blood pressure test kit-large As directed once daily fexofenadine (Radha Allergy) 180 mg PO DAILY fluticasone propionate 50 mcg/actuation (Allergy Relief (fluticasone)) 1 spray intranasal DAILY gabapentin 300 mg PO TID PRN 30 days hydroxyzine HCl 25 mg PO BID ibuprofen 600 mg PO TID iron,carbonyl-vitamin C 65 mg iron- 125 mg (Vitron-C) 1 tab PO DAILY melatonin 3 mg PO BEDTIME methadone (Methadone Intensol) 115 mg PO DAILY triamcinolone acetonide 0.5% 1 appl topical TID [tub seat As directed] [walker As directed] HPI Comments Details: The patient is a 60-year-old male presenting with an adrenal mass. The adrenal mass was incidentally discovered during imaging studies performed for back pain. The mass measures 8 mm and appears non-cancerous based on imaging characteristics from both CT and MRI scans. The patient has a history of hypertension, with two episodes requiring emergency room visits due to elevated blood pressure and associated symptoms of dizziness and blurry vision. He does not take any antihypertensive medications currently. The patient also reports a history of asthma, managed with an inhaler used as needed. He experiences chronic back pain, which has impacted his ability to work and is seeking social security benefits due to this condition. Additionally, the patient reports dysphagia, characterized by frequent choking. Had CT abdomen/pelvis [date] for which revealed TECHNIQUE: Contiguous axial thin section helical images of the abdomen were performed before and after the administration of 85 mL of Omnipaque 350 intravenous contrast. Examination performed at the portal venous and delayed phases. The data set was reformatted in the coronal and sagittal planes and reviewed on an independent workstation. No reported immediate complications. ADRENAL GLANDS AND KIDNEYS: There is an 8 mm low density nodule which measures -11 Hounsfield units in the noncontrast phase. No nodular lesions in the left adrenal gland. CT/CT abdomen wo/w IV con IMPRESSION: 8 mm lipid rich adenoma, right adrenal gland.. Prior CT dated []revealed. Denies history of spells with headache, flushing, diaphoresis, abdominal pain or diarrhea. Denies any weight gain, frequent infections, easy bruisability, development of violaceous striae. No History of HTN, but has had episodes of increased bp precipating ER visit No history of anticoagulant use. Denies any weight loss, orthostatic symptoms, hypoglycemia. No history of malignancy or TB. - Methadone: Taken for unspecified reasons - Inhaler: Used as needed for asthma Imaging: Labs: Workup showed adenoma was non secretory. It was a slight elevation in plasma metanephrines but 24 hour urine was normal. Midnight salivary cortisol was normal as well. He did say that since last visit, he was diagnosed with hypertension [facility] Medical History IV drug user Lumbar radiculopathy, right Low back pain History of osteomyelitis Asthma Skin lesion Surgical History History of inguinal hernia repair Family History Father No problems noted. Mother Advanced cardiac disease Dementia in Alzheimer's disease Mental health disorder Social History Housing: Homeless Alcohol intake: never Patient Tobacco Use Status: Current everyday Tobacco user Tobacco use type: Cigarette Cigarette Packs Per Day: 0.5 Cigarettes Per Day: 3 e-Cigarette/Vaping Use: Former Use Second Hand Smoke Exposure: Yes Substance Use Type: Heroin service: No Current occupational status: employed Cognitive needs: Yes (Cane) Hearing needs: No Vision needs: Yes (Glasses) Physical Exam Vital Signs: Last Vital Signs Pulse 83 08/03/25 13:19 BP 148/88 H 08/03/25 13:19 Pulse Ox 97 08/03/25 13:19 Oxygen Delivery Method Room Air 08/03/25 13:19 BMI result Body Mass Index 28.0 Assessment & Plan Assessment & Plan (1) Right adrenal mass: Code(s): E27.8 - Other specified disorders of adrenal gland Category: Medical Plan: This is a 59-year-old male with a history of a right adrenal mass with imaging characteristics suggestive of a benign adenoma. Adenoma appears to be non secretory Plan is continued observation. We will have patient return in 1 year's time. We will also check renin and aldosterone Orders: Orders Aldosterone Today E27.8 - Other specified disorders of adrenal gland Renin Today E27.8 - Other specified disorders of adrenal gland Coding Level of Care Code Est Pt Level 3 (92933) Diagnoses Right adrenal mass E27.8
--- OUTSIDE RECORDS SUMMARY | 2025-08-03 16:09 | XMS_ITS | Clinical Summary ---
Author Organization [employer] Address [address] [place] [address] [address] [place] [address] Care Team Providers Care Tobacco Blender Name Role Phone Unavailable Primary Care Provider Unavailabl e Allergies No known active allergies Medications No known medications Active Problems Problem Noted Date Diagnosed Date Complete edentulism 06/28/2025 Normal oral exam 06/28/2025 Encounters Date Type Department Care Team Description 06/28/2025 3:00 PM EDT Office Visit [facility] [address] [place] [address] Steve Grijalva DDS Complete edentulism, unspecified edentulism class (Primary Dx); Normal oral exam from Last 3 Months Immunizations Immunization Administration Dates Next Due Hep A, Adult 12/14/2019 Moderna Covid-19 Vaccine 12+ 10/15/2021 Pfizer Covid-19 Vaccine 12+ 11/27/2020, Pfizer Covid-19 Vaccine 12+ Bivalent 11/18/2022 Social History Tobacco Use Types Packs/Day Years Used Date Smoking Tobacco: Former Cigarettes Passive Smoke Exposure: Never Smokeless Tobacco: Former Tobacco Cessation:Counseling Given: No Alcohol Use Standard Drinks/Week Comments Defer 0 (1 standard drink = 0.6 oz pur e alcohol) Sex and Gender Information Value Date Recorded Sex Assigned at Male 07/28/2022 10:27 AM EDT Legal Sex Male 10:27 AM EDT Gender Identity Male 11/18/2022 2:11 PM EST Sexual Orientation Straight 11/18/2022 2: 11 PM EST Last Filed Vital Signs Vital Sign Reading Time Taken Comments Blood Pressure 138/82 06/28/2025 3:10 PM EDT Pulse 70 06/28/2025 3:10 PM EDT Temperature - - Respiratory Rate - - Oxygen Saturation - - Inhaled Oxygen Concentration - - Weight - - Height - - Body Mass Index - - Plan of Treatment Health Maintenance Due Date Last Done Comments CT Colonography 1966 Colonoscopy 1966 Colorectal Cancer Screening 1966 Depression Screening 1966 FIT DNA/Cologuard 1966 FIT 1966 FOBT 1966 HIV Screening 1966 Lipid Panel 1966 SDOH Screening 1966 Sigmoidoscopy 1966 Disability Screening 1966 Alcohol/Substance Use Screening 1978 Hepatitis B Vaccines (1 of 3 - 19+ 3-dose series) 1985 Zoster Vaccines (1 of 2) 2016 Hepatitis A Vaccines (2 of 2 - Risk 2-dose series) 06/15/2020 12/14/2019 DTaP/Tdap/Td Vaccines (2 - Td or Tdap) 11/30/2023 11/29/2013 Influenza Vaccine (#1) 2025 Dental Oral Exam 12/28/2025 06/28/2025, , 05/10/2015 Tobacco Screening 06/28/2026 06/28/2025 Dental X-Ray: Full Mouth 2028 06/28/2025, 04/28 RSV Patients and Patients Aged 60 years or older (1 - 1-dose 75+ series) 2041 Dental Prophylaxis Discontinued 01/22/2018, 01/23/2016 COVID-19 Vaccine Completed 10/12/2024, , 10/15/2021, Additional history exists Pneumococcal Vaccine: 50+ Years Completed 10/12/2024, 09/10/2015, 11/29/2013 Dental X-Ray: Bitewings Discontinued HIB Vaccines Aged Out No longer eligi [...] on patient's age to complete this topic Procedures Procedure Name Priority Date/Time Associated Diagnosis Comments CASE PRESENTATION, DETAILED AND EXTENSIVE TREATMENT PLANNING Routine 06/28/2025 3:00 PM EDT PANORAMIC RADIOGRAPHIC IMAGE Routine 06/28/2025 3:00 PM EDT PERIODIC ORAL EVALUATION - ESTABLISHED PATIENT Routine 06/28/2025 3:00 PM EDT PROPHYLAXIS - ADULT Routine 01/22/2018 1 2:00 AM EDT from Last 3 Months or Most Recently Relevant to Health Maintenance Insurance [facility] STANDARD HSN PARTIAL [facility] ACO DENTAL-[facility] MEDICAID STAND ADULT
== END 2025-08-03 13:38 | disposition home or self-care (01) ==
LOC: HO.ENCR 13:18
PROVIDERS: Visit Provider Internal Medicine Endocrinology, Diabetes & Metabolism
DX: E27.8 Other specified disorders of adrenal gland (principal)
CPT/HCPCS: 99213

== ENCOUNTER → 2025-08-03 13:17 | Outpatient (BNVA) | payer MEDICAID, SELFPAY | PROVIDERS: Visit Provider Internal Medicine Endocrinology, Diabetes & Metabolism | DX: E27.8 Other specified disorders of adrenal gland (principal) | CPT/HCPCS: 99212 ==

== ENCOUNTER 2025-08-17 08:32 | Outpatient (REF) | payer MEDICAID, SELFPAY ==
--- OUTSIDE RECORDS SUMMARY | 2025-08-17 09:44 | XMS_ITS | Clinical Summary ---
Author Organization [employer] Address [address] [place] [address] [address] [place] [address] Care Team Providers Care Skip Miner Name Role Phone Unavailable Primary Care Provider Unavailabl e Allergies No known active allergies Medications No known medications Active Problems Problem Noted Date Diagnosed Date Complete edentulism 06/28/2025 Normal oral exam 06/28/2025 Encounters Date Type Department Care Team Description 06/28/2025 3:00 PM EDT Office Visit [facility] [address] [place] [address] Steve Grijalva DDS Complete edentulism, unspecified edentulism [...] of 3 - 19+ 3-dose series) 1985 RSV Patients and Patients Aged 60 years or older (1 - Risk 50-74 years 1-dose series) 2016 Zoster Vaccines (1 of 2) 2016 Hepatitis A Vaccines (2 of 2 - Risk 2-dose series) 06/15/2020 12/14/2019 DTaP/Tdap/Td Vaccines (2 - Td or Tdap) 11/30/2023 11/29/2013 COVID-19 Vaccine ( season) 2025 10/12/2024, 11/18/2022, 10/15/2021, Additional history exists Influenza Vaccine (#1) 2025 Dental Oral Exam 12/28/2025 06/28/2025, , 05/10/2015 Tobacco Screening 06/28/2026 06/28/2025 Dental X-Ray: Full Mouth 2028 06/28/2025, 04/28 Dental Prophylaxis Discontinued 01/22/2018, 01/23/2016 Pneumococcal Vaccine: 50+ Years Completed 10/12/2024, 09/10/2015, [...] Most Recently Relevant to Health Maintenance Insurance [facility] STANDARD HSN PARTIAL [facility] STAND ADULT
== END 2025-08-17 08:33 | disposition home or self-care (01) ==
LOC: HO.LAB 08:32
PROVIDERS: Internal Medicine Endocrinology, Diabetes & Metabolism; Visit Provider Urology
DX: E27.8 Other specified disorders of adrenal gland (principal); R03.0 Elevated blood-pressure reading, without diagnosis of hypertension; M54.32 Sciatica, left side; M54.41 Lumbago with sciatica, right side; G89.29 Other chronic pain; D64.9 Anemia, unspecified; E55.9 Vitamin D deficiency, unspecified; R73.01 Impaired fasting glucose; F11.90 Opioid use, unspecified, uncomplicated; F17.210 Nicotine dependence, cigarettes, uncomplicated; Z79.51 Long term (current) use of inhaled steroids; Z79.899 Other long term (current) drug therapy
CPT/HCPCS: 36415; 82088; 84244; 99212

== ENCOUNTER 2025-08-17 10:53 | Outpatient (AMB) | payer MEDICAID, SELFPAY ==
--- OUTSIDE RECORDS SUMMARY | 2025-04-04 06:00 | XMS_ITS ---
Author Organization [facility] Address [address] [place] [address] Care Team Providers Care Blanket Binder Name Role Phone [facility] Primary Care Provider Merly Calderon Unavailable [phone] REASON FOR VISIT Housing Encounters Encounter Location Date Provider Diagnosis [facility] [address] [place], [place] [phone] 04/04/2025 Merly Calderon Plan Of Treatment No Information Progress Notes * Abdirahman GARCIADOB:1965 (60 yo M)Acc No.[id number]:04/04/2025 Case Management Patient: Abdirahman ESPOSITO Provider: Crystal Calderon :1965 A ge:59 Y S ex:Male Date:04/04/2025 Address:[address] [facility] Pcp:[facility] Subjective: * Chief Complaints: * 1 . Housing. * Medical History: Objective: Assessment: Plan: * Treatment: * Images: Billing Information: * Visit Code: * Procedure Codes: Care Plan Details* * Electronic signature of Gavin Calderon on 08/17/2025 at 04:27 PM EST Sign off status: Pending * Provider: Crystal Calderon Date: 0 04/04/2025 Generated for Katia gomes/Omega/Antwan on: 10/17/2024 04:27 PM EST
[2025-08-17 10:56] VITALS: BP 122/68; PULSE 76; RESP 18; O2SAT 97; BMI 27.3
--- NOTE | 2025-08-17 10:56 | A.OFFPC_ITS ---
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 Required: No Accompanied by: Self / Same As Patient Allergies No Known Allergies (No Known Allergies*) Allergy (Verified 08/17/25 14:49) Medication List - Last Reconciled 08/17/25 by KIYA Rubalcava albuterol sulfate 90 mcg/actuation (Ventolin HFA) 2 puffs PO QID PRN amlodipine 5 mg PO DAILY blood pressure test kit-large As directed once daily fexofenadine (Radha Allergy) 180 mg PO DAILY fluticasone propionate 50 mcg/actuation (Allergy Relief (fluticasone)) 1 spray intranasal DAILY gabapentin 300 mg PO TID PRN 30 days hydroxyzine HCl 25 mg PO BID ibuprofen 600 mg PO TID iron,carbonyl-vitamin C 65 mg iron- 125 mg (Vitron-C) 1 tab PO DAILY melatonin 3 mg PO BEDTIME methadone (Methadone Intensol) 70 mg PO DAILY triamcinolone acetonide 0.5% 1 appl topical TID [tub seat As directed] [walker As directed] Tobacco use date assessed: 08/17/25 Dental Screening Dental Screen Date: 08/17/25 Did you have a dental visit in the last 12 months?: No Did you have a dental problem in the last 6 months where you did not have access to dental care?: No Was dental information given to patient?: Patient has dentist HPI HPI Comments History of Present Illness Details The patient is a 60 year old individual presenting for follow-up on chronic conditions. The patient experiences significant leg pain, which is reportedly less severe in the morning and worsens throughout the day, particularly around lunchtime and in the evening, sometimes requiring the patient to lie down. The patient is prescribed gabapentin three times a day but only takes it once daily at night to aid sleep. The patient had previously stopped taking the medication due to concern that it was affecting the kidneys, an issue which is not related to the medication. The patient has a history of anemia. For mental health, the patient sees a therapist and has recently seen a psychiatrist for the first time after a recommendation from the therapist. The patient was on medication previously but had stopped it. Patient reports that his methadone was decreased to 70 mg daily Health Maintenance The patient will have fasting labs drawn tomorrow, including a cholesterol panel. The patient is continuing with mental health care, including seeing a therapist and psychiatrist. A follow-up visit is scheduled for after the holidays in approximately four months. Social History - The patient is in a program that manag es the patient's medications. [facility] Medical History IV drug user Lumbar radiculopathy, right Low back pain History of osteomyelitis Asthma Skin lesion Surgical History History of inguinal hernia repair Family History Father No problems noted. Mother Advanced cardiac disease Dementia in Alzheimer's disease Mental health disorder Social History Housing: Homeless Alcohol intake: never Patient Tobacco Use Status: Current everyday Tobacco user Tobacco use type: Cigarette Cigarette Packs Per Day: 0.5 Cigarettes Per Day: 3 e-Cigarette/Vaping Use: Former Use Second Hand Smoke Exposure: Yes Substance Use Type: Heroin service: No Current occupational status: employed Cognitive needs: Yes (Cane) Hearing needs: No Vision needs: Yes (Glasses) Questionnaire PHQ-9 Over the last 2 weeks, how often have you been bothered by any of the following problems? Depression Screening Interpretation: Positive Depression Screening Done: Yes Source: Developed by Drs. Rambo Du, Priyanka Madden, Kapil Sandra and colleagues, with an educational lakeisha from [employer]. Thrive Questionnaire Date Thrive assessed: 02/13/25 I am a: Patient What is your living situation today?: I have a steady place to live Within the past 12 months, did the food you bought not last and you didn't have the money to get more?: Never true Within the past 12 months, did you worry whether your food would run out before you got money to buy more?: Sometimes True Do you have trouble paying for medicines?: No Do you have trouble getting transportation to medical appointments?: No Do you have trouble paying your heating and electricity bill?: No Do you have trouble taking care of your child, family member or friend?: Yes Do you have trouble with day-to-day activities such as bathing, preparing meals, shopping, managing finances, etc.?: Yes Are you currently unemployed and looking for a job?: Yes Are you interested in more education?: Yes Please select the resources that you would like help with: Housing/Retirement Currently or been in a relationship where the following occur: No concerns reported THRIVE Score: 1 AUDIT C Alcohol Use Questionnaire (AUDIT-C) 1. How often do you have a drink containing alcohol?: Never 3. How often do you have six or more drinks on one occasion?: Never Total Score: 0 EMANUEL-7 AMB Questionnaire EMANUEL-7 Date EMANUEL - 7 assessed: 05/16/25 Feeling nervous, anxious, or on edge: 1 = Several days Not being able to stop or control worryin = More than half the days Worrying too much about different things: 2 = More than half the days Trouble relaxin = More than half the days Being so restless that it is hard to sit still: 2 = More than half the days Becoming easily annoyed or irritable: 2 = More than half the days Feeling afraid as if something awful might happen: 0 = Not at all Total EMANUEL-7 score (0-4 normal; 5-9 mild; 10-14 moderate; 15-21 severe): 11 Source: Developed by Drs. Rambo Du, Priyanka Madden, Kapil Sandra and colleagues, with an educational lakeisha from [employer]. Review of Systems Narrative Review of Systems - Musculoskeletal: Reports significant pain in the legs, which is worse in the daytime and evening. - Neurological: Takes gabapentin for pain, but denies that it causes drowsiness. - Constitutional: Reports using gabapentin to help sleep at night. Const Denies headache(s) Eyes Denies loss of vision ENT Denies vertigo, Denies dizziness, Denies headache(s) and Denies sore throat Card Denies chest pain, Denies leg edema and Denies lightheadedness Resp Denies cough, Denies hemoptysis and Denies wheezing GI Denies abdominal pain, Denies melena, Denies constipation, Denies diarrhea and Denies vomiting Denies dysuria, Denies urinary frequency and Denies urinary urgency Musc Reports back pain, Reports arthralgias (Right hip), Denies joint swelling, Denies numbness, Reports radiating pain into limb (Right leg) and Denies tingling Neuro Denies Abnormal speech present, Denies behavioral changes, Denies vertigo, Denies dizziness, Denies headache(s), Denies loss of vision, Denies memory loss, Denies numbness and Denies tingling Psych Denies anxiety, Denies behavioral changes, Denies depression, Denies memory loss and Denies panic attacks Bryan/Lymph Denies easy bleeding and Denies easy bruising Aller/Immun Denies wheezing Physical exam (Primary Care) Vital Signs: Last Vital Signs Pulse 76 08/17/25 10:56 Resp 18 08/17/25 10:56 BP 122/68 08/17/25 10:56 Pulse Ox 97 08/17/25 10:56 Oxygen Delivery Method Room Air 08/17/25 10:56 BMI result Body Mass Index 27.3 Tobacco/Smoking Status: Tobacco use Status Tobacco use date assessed 08/17/25 08/17/25 10:57 Patient Tobacco Use Status Current everyday Tobacco 08/17/25 10:57 Tobacco use type Cigarette 08/17/25 10:57 e-Cigarette/Vaping Use Former Use 08/17/25 10:57 Depression Screening Interpretation: Positive Thrive Assessment: Date of Thrive Assessment Date Thrive assessed 02/13/25 08/17/25 10:57 Currently or been in a relationship where the following occur: No concerns reported Narrative Physical Exam - Extremities: No tenderness to palpation of the calves bilaterally. Const General: healthy appearing, no acute distress, alert and awake Nutritional Appearance: well nourished Orientation/consciousness: oriented to person, oriented to place and oriented to time HENMT Ears: TM's normal bilaterally General nose exam: Normal nasal mucous membranes and turbinates present Eyes Conjunctivae: conjunctivae normal Sclerae: sclerae normal Pupils: Equal, round and reactive pupils present Neck Neck: Yes no lymphadenopathy and Yes no JVD Thyroid: Thyroid normal Carotids: no bruits Resp Effort & Inspection: normal respiratory effort and not tachypneic Auscultation: no crackles, no rales, no rhonchi and no wheezes Cardio Rate: regular rate Rhythm: regular rhythm Heart sounds: no murmurs and normal S1 and S2 GI Palpation (GI): Soft to palpation, nontender, no hepatomegaly and no spl enomegaly Auscultation: normal bowel sounds Back/Spine/Pelvis Thoracic/Lumbar Spine: No lumbar spinal tenderness Pelvis: buttock tenderness on the right and sciatic notch tenderness Skin General skin exam: no rashes or lesions noted and dry skin Neuro General: oriented to person, oriented to place and oriented to time Cranial nerves: Yes Equal, round and reactive pupils present Speech: No Abnormal speech present Gait exam (Neuro): Antalgic gait present, Assistive device used (Cane) and Other gait observations present Motor exam (neuro): no tremor noted Extrem Right upper extremity: full ROM Left upper extremity: full ROM Right lower extremity: full ROM; no edema Left lower extremity: full ROM; no edema Psych Mental Status: mental status grossly normal Speech and movement: Normal speech and movement present Affect: normal affect Attitude: cooperative Thought process: Normal thought process present Coding Level of Care Code Est Pt Level 4 (04965) Diagnoses Elevated blood pressure reading without diagnosis of hypertension R03.0 Right adrenal mass E27.8 Bilateral sciatica M54.31; M54.32 Laterality: bilateral Chronic right-sided low back pain with right-sided sciatica M54.41; G89.29 Chronicity: chronic Back pain laterality: right Sciatica presence: with sciatica Sciatica laterality: sciatica of right side Anemia, unspecified type D64.9 Anemia type: unspecified type Vitamin D deficiency E55.9 IFG (impaired fasting glucose) R73.01 Time Spent (min) 37 Assessment & Plan Assessment & Plan (1) Elevated blood pressure reading without diagnosis of hypertension: Code(s): R03.0 - Elevated blood-pressure reading, without diagnosis of hypertension Category: Medical Plan: Elevated blood pressure was on previous the visit 168/90. The patient reports that he is under tremendous stress and discomfort that might be driving his blood pressure. However, the patient has multiple blood pressure in chart that noted to be elevated. Patient was started on amlodipine 5 mg daily. Blood pressure in office today 122/68 mm Hg-systolic goal less than 130 mm Hg. Reinforced low-salt diet. (2) Right adrenal mass: Code(s): E27.8 - Other specified disorders of adrenal gland Category: Medical Plan: The patient is concern about his adrenal mass, reports that it is the uncertainty of what is going to come of it. Current imaging suggest of benign adenoma. However, the patient he has been seen by Endocrine to rule out hyper- secretion capabilities. (3) Sciatica: Code(s): M54.30 - Sciatica, unspecified side Category: Medical Qualifiers: Laterality: bilateral Qualified Code(s): M54.31 - Sciatica, right side; M54.32 - Sciatica, left side Plan: Patient continues to complain about sciatica pain on the right side. Continue gabapentin 300 mg t.i.d. p.r.n., ibuprofen 600 mg t.i.d. prn. Follow up with pain management as scheduled. (4) Low back pain: Code(s): M54.50 - Low back pain, unspecified Category: Medical Qualifiers: Chronicity: chronic Back pain laterality: right Sciatica presence: with sciatica Sciatica laterality: sciatica of right side Qualified Code(s): M54.41 - Lumbago with sciatica, right side; G89.29 - Other chronic pain Plan: Avoid bed rest (including sitting in bed) and to simply limit painful activities; improvement usually occurs within a few weeks May use cool packs; may alternate cold and hot packs Exercises a yeung (e.g., walking, swimming, cycling) as soon as possible, starting with 5-10 min and walk-in up to 20-30 minute q.day Abdominal core and back strengthening exercises may help to prevent future problems Continue 300 mg of gabapentin t.i.d. p.r.n. and ibuprofen 600 mg t.i.d. p.r.n.. Follow up with pain management as scheduled. (5) Anemia: Code(s): D64.9 - Anemia, unspecified Category: Medical Qualifiers: Anemia type: unspecified type Qualified Code(s): D64.9 - Anemia, unspecified Plan: CBC was normal in February 2025. Encouraged the patient to complete preordered labs to re-evaluate. We will continue to monitor CBC (6) Vitamin D deficiency: Code(s): E55.9 - Vitamin D deficiency, unspecified Category: Medical Plan: Encouraged vitamin-D OTC daily (7) IFG (impaired fasting glucose): Code(s): R73.01 - Impaired fasting glucose Category: Medical Plan: Elevated fasting glucose in February of 2025 We will continue to monitor fasting glucose and A1c Plan Plan Patient was informed and verbally consented to the use of an ambient scribe for clinic note documentation during this visit. 1. Chronic Leg Pain The patient reports significant leg pain that worsens during the day. The current regimen of gabapentin once daily is insufficient for pain control. It was clarified that gabapentin does not affect the kidneys, addressing the patient's previous concern. Advised the patient to increase the frequency of gabapentin to at least twice daily (evening and night) and up to three times daily as needed for adequate pain relief. 2. Anemia, Unspecified The patient has a history of anemia. It was clarified that Ensure is a nutritional supplement and not a primary treatment for anemia. Pending lab work will guide further management. Discussion Notes I discussed the management of the patient's chronic leg pain. I clarified that the patient's concerns about gabapentin affecting the kidneys are unfounded and that the medication is safe to take as prescribed. I advised increasing the dose to at least twice a day, or up to three times a day, to achieve better pain control, as the current once-daily dose is insufficient. We reviewed the plan for the patient to get fasting lab work tomorrow. I scheduled a follow-up appointment in four months, after the holidays. Patient Instructions - Please go to the lab tomorrow for blood tests. - You must not eat before your blood test. - For your leg pain, you should take your gabapentin medication more often. - It is safe for your kidneys. - Take it at least in the evening and at night to help with pain, and you can use it up to three times per day if needed. - Continue to see your psychiatrist and therapist for your mental health. - Please schedule a follow-up appointment to see me in about four months, after the holidays. Orders: Orders Hemoglobin A1c Today R73.01 - Impaired fasting glucose Vitamin D 25-OH Total Today E55.9 - Vitamin D deficiency, unspecified
--- OUTSIDE RECORDS SUMMARY | 2025-08-17 16:28 | XMS_ITS | Patient Health Record ---
Author Organization [facility] Address [address] [place] [address] Care Team Providers Care Leak Gang Supervisor Name Role Phone [facility] Primary Care Provider Merly Calderon [facility] Reason For Referral No Information Encounters Encounter Location Date Provider Diagnosis [facility] [address], [place] [phone] 03/29/2025 Merly Calderon Plan Of Treatment No Information Insurance Providers Payer Name Payer Address Payer Phone Subscriber Number Group Number Insured Name Patient Relationship to Insured Coverage Start Date Coverage End Date [place] Standard [address] [place] [id number] Abdirahman Garcia Self - patient is the insured 5
== END 2025-08-17 11:44 | disposition home or self-care (01) ==
LOC: HO.HMCH 10:54
DX: R03.0 Elevated blood-pressure reading, without diagnosis of hypertension (principal); E27.8 Other specified disorders of adrenal gland; M54.31 Sciatica, right side; M54.32 Sciatica, left side; M54.41 Lumbago with sciatica, right side; G89.29 Other chronic pain; D64.9 Anemia, unspecified; E55.9 Vitamin D deficiency, unspecified; R73.01 Impaired fasting glucose